=== PATIENT | female | born 1950 | race Two or more races ===

== ENCOUNTER 2016-12-09 21:44 | Emergency (ER) | payer MEDICARE ==
[2016-12-09 21:55] VITALS: BP 137/70
--- NOTE | 2016-12-14 20:56 | UC ---
Cardiac HPI - HPI Summary HPI Summary: 66 YEAR OLD PRESENTS WITH COMPLAINS OF SEVERE FATIGUE, CHEST PAIN, NAUSEA, AND HEADACHE. - History of Current Complaint Chief Complaint: UCHeadache Stated Complaint: PAIN AT THE BASE OF HER SKULL Pain Intensity: 3 - Allergy/Home Medications Allergies/Adverse Reactions: Allergies Allergy/AdvReac Type Severity Reaction Status Date / Time No Known Allergies Allergy Verified 12/09/16 21:55 PMH/Surg Hx/FS Hx/Imm Hx Previously Healthy: Yes - Surgical History Surgical History: Yes Surgery Procedure, Year, and Place: craniotomy - Social History Alcohol Use: None Substance Use Type: None Smoking Status (MU): Never Smoked Tobacco Review of Systems Constitutional: Fatigue Skin: Negative Eyes: Negative ENT: Negative Respiratory: Negative Cardiovascular: Negative Gastrointestinal: Negative Genitourinary: Negative Motor: Negative Neurovascular: Negative Musculoskeletal: Negative Neurological: Headache, Weakness Psychological: Negative All Other Systems Reviewed And Are Negative: Yes Physical Exam Triage Information Reviewed: Yes Vital Signs: Initial Vital Signs Temp 36.3 C 12/09/16 21:50 Pulse 58 12/09/16 21:50 Resp 16 12/09/16 21:50 BP 137/70 12/09/16 21:50 Pulse Ox 100 12/09/16 21:50 Eye Exam: Normal ENT Exam: Normal Dental Exam: Normal Neck exam: Normal Neck: Positive: 1 Respiratory Exam: Normal Cardiovascular: Positive: Bradycardia Abdominal Exam: Normal Musculoskeletal Exam: Normal Neurological Exam: Normal Psychological Exam: Normal Skin Exam: Normal - Clinical Impression Provider Diagnoses: CHEST PAIN. BRADYCARDIA. NAUSEA Discharge - Discharge Plan Condition: Guarded Disposition: AGAINST MEDICAL ADVICE Referrals: Mario Garcia MD [Primary Care Provider] -
== END 2016-12-09 21:58 | disposition left against medical advice (07) ==
LOC: UCEAST 21:44
DX: R07.89 Other chest pain (principal); R00.1 Bradycardia, unspecified; R11.0 Nausea; R53.83 Other fatigue
CPT/HCPCS: 99202; G0463

== ENCOUNTER 2016-12-09 22:13 | Emergency (ER) | payer MEDICARE ==
[2016-12-09 22:58] LABS: Hematocrit 39 % (35-47); Hemoglobin 12.8 g/dl (12.0-16.0); Mean Corpuscular HGB Conc 33 g/dl (31-36); Mean Corpuscular Hemoglobin 30 pg (27-31); Mean Corpuscular Volume 92 fL (80-97); Mean Platelet Volume 8 um3 (7.4-10.4); Red Cell Distribution Width 14 % (10.5-15)
[2016-12-09 23:13] LABS: BUN/Creatinine Ratio 16.2 (8-20); EGFR African American 111.3 (>60); EGFR Non-African American 86.6 (>60); Potassium 3.7 mmol/L (3.5-5.0)
--- NOTE | 2016-12-09 23:31 | ED ---
Rayo Pham Alok, scribed for Portillo Cortez MD on 12/09/16 at 2245 . Neurological HPI - HPI Summary HPI Summary: 66F presents to the ED with and an occipital sharp OGDEN earlier while laying down as well as cyanosis and coldness of the hands earlier today. Pt states that her OGDEN lasted about an hour at a 3/10 in severity and subsided on its own spontaneously. Pt also notes right sided facial swelling below her right eye currently with drainage of her right eye earlier. Pt also notes vision black outs on and off one week ago. Pt denies OGDEN currently. PMHx includes h/o stroke on 06/20/16 in [facility]. Pt takes 4 mg Coumadin QD. - History of Current Complaint Chief Complaint: EDNeurologicalDeficit Stated Complaint: NECK PAIN Time Seen by Provider: 12/09/16 22:33 Hx Obtained From: Patient, Family/Motor Vehicle Salesperson Onset/Duration: Still Present Timing: Intermittent Episodes Lasting: Onset Severity: Moderate Current Severity: Moderate Headache Location: Occipital (Right), Occipital (Left) Pain Intensity: 0 Pain Scale Used: 0-10 Numeric Character: Sharp Episode Lasting: Hours Aggravating: Nothing Alleviating: Spontanious Resolution Associated Signs and Symptoms: Positive: Visual Changes, Headache Related Hx: Coumadin - Allergy/Home Medications Allergies/Adverse Reactions: Allergies Allergy/AdvReac Type Severity Reaction Status Date / Time No Known Allergies Allergy Verified 12/09/16 21:55 Home Medications: Home Medications Atorvastatin* [Lipitor*] 40 mg PO 2100 12/09/16 [History Confirmed 12/09/16] Magnesium Oxide 400 mg PO DAILY 12/09/16 [History Confirmed 12/09/16] Metoprolol Succinate [Toprol Xl] 50 mg PO DAILY 12/09/16 [History Confirmed ] Potassium Chlor TAB* [Klor Con ER TAB*] 20 meq PO DAILY 12/09/16 [History Confirmed 12/09/16] Warfarin Sodium [Coumadin] 4 mg PO DAILY 12/09/16 [History Confirmed 12/09/16] metFORMIN* [Glucophage 500 MG TAB *] 500 mg PO 0800,1700 12/09/16 [History Confirmed 12/09/16] PMH/Surg Hx/FS Hx/Imm Hx Endocrine/Hematology History: Denies: Hx Diabetes, Hx Thyroid Disease Cardiovascular History: Reports: Hx Hypertension Respiratory History: Denies: Hx Asthma, Hx Chronic Obstructive Pulmonary Disease (COPD) GI History: Denies: Hx Ulcer Neurological History: Reports: Hx CVA - Surgical History Surgery Procedure, Year, and Place: craniotomy Infectious Disease History: No Infectious Disease History: Denies: Hx Clostridium Difficile, Hx Hepatitis, Hx Human Immunodeficiency Virus (HIV), Hx of Known/Suspected MRSA, Hx Shingles, Hx Tuberculosis, Hx Known/ Suspected VRE, Hx Known/Suspected VRSA, History Other Infectious Disease, Traveled Outside the [place] in Last 30 Days - Family History Known Family History: Negative: Diabetes - Social History Occupation: Retired Lives: With Family Alcohol Use: None Substance Use Type: Reports: None Smoking Status (MU): Never Smoked Tobacco Review of Systems Positive: Chills, Other - cyanosis. Negative: Fever Positive: Drainage, Other - vision black outs Positive: Other - facial swelling right side Positive: Headache All Other Systems Reviewed And Are Negative: Yes Physical Exam Triage Information Reviewed: Yes Vital Signs On Initial Exam: Initial Vitals Temp Pulse Resp BP Pulse Ox 98.1 F 63 16 118/74 97 12/09/16 22:18 12/09/16 22:18 12/09/16 22:18 12/09/16 22:18 12/09/16 22:18 Vital Signs Reviewed: Yes Appearance: Positive: Well-Appearing, No Pain Distress Skin: Positive: Warm Head/Face: Positive: Normal Head/Face Inspection Eyes: Positive: EOMI, KRISTIAN ENT: Positive: Hearing grossly normal Neck: Positive: Supple Respiratory/Lung Sounds: Positive: Clear to Auscultation, Breath Sounds Present Cardiovascular: Positive: RRR Abdomen Description: Positive: Nontender, Soft Bowel Sounds: Positive: Present Musculoskeletal: Positive: Strength/ROM Intact Neurological: Positive: Sensory/Motor Intact, Normal Gait Psychiatric: Positive: Affect/Mood Appropriate - [place] Coma Scale Best Eye Response: 4 - Spontaneous Best Motor Response: 6 - Obeys Commands Best Verbal Response: 5 - Oriented Diagnostics - Vital Signs Vital Signs Temp Pulse Resp BP Pulse Ox 12/09/16 22:31 63 20 97 12/09/16 22:30 134/70 12/09/16 22:18 98.1 F 63 16 118/74 97 - Laboratory Lab Results: Lab Results 12/09/16 12/09/16 12/09/16 Range/Units 22:50 22:50 22:50 WBC 9.0 (3.5-10.8) 10^3/ul RBC 4.20 (4.0-5.4) 10^6/ul Hgb 12.8 (12.0-16.0) g/dl Hct 39 (35-47) % MCV 92 (80-97) fL MCH 30 (27-31) pg MCHC 33 (31-36) g/dl RDW 14 (10.5-15) % Plt Count 241 (150-450) 10^3/ul MPV 8 (7.4-10.4) um3 Neut % (Auto) 62.4 (38-83) % Lymph % (Auto) 28.6 (25-47) % [place] % (Auto) 6.6 (1-9) % Eos % (Auto) 1.8 (0-6) % Baso % (Auto) 0.6 (0-2) % Absolute Neuts (auto) 5.6 (1.5-7.7) 10^3/ul Absolute Lymphs (auto) 2.6 (1.0-4.8) 10^3/ul Absolute Monos (auto) 0.6 (0-0.8) 10^3/ul Absolute Eos (auto) 0.2 (0-0.6) 10^3/ul Absolute Basos (auto) 0.1 (0-0.2) 10^3/ul Absolute Nucleated RBC 0.01 10^3/ul Nucleated RBC % 0.1 INR (Anticoag Therapy) 1.47 H (0.89-1.11) Sodium 138 (133-145) mmol/L Potassium 3.7 (3.5-5.0) mmol/L Chloride 105 (101-111) mmol/L Carbon Dioxide 26 (22-32) mmol/L Anion Gap 7 (2-11) mmol/L BUN 11 (6-24) mg/dL Creatinine 0.68 (0.51-0.95) mg/dL Est GFR ( Amer) 111.3 (>60) Est GFR (Non-Af Amer) 86.6 (>60) BUN/Creatinine Ratio 16.2 (8-20) Glucose 97 (70-100) mg/dL Calcium 9.0 (8.6-10.3) mg/dL Result Diagrams: 12/09/16 22:50 12/09/16 22:50 Lab Statement: Any lab studies that have been ordered have been reviewed, and results considered in the medical decision making process. - CT Brain CT CT Interpretation: Positive (See Comments) - IMPRESSION: No evidence of acute pathology CT Interpretation Completed By: Radiologist Maxillofacial CT CT Interpretation: Positive (See Comments) - IMPRESSION: Possible mild right ethmoid sinusitis. No fracture. CT Interpretation Completed By: Radiologist Re-Evaluation - Re-Evaluation First Eval Re-Evaluation Time: 23:59 Change: Improved Comment: Discussed pt CT results Course/Dx - Diagnoses Provider Diagnoses: Headache Discharge - Discharge Plan Condition: Stable Disposition: HOME Patient Education Materials: Sinusitis (ED), General Headache (ED) Print Language: ARGENTINE Referrals: Mario Garcia MD [Primary Care Provider] - Additional Instructions: Please follow up with your primary care physician. The documentation as recorded by the Rayo avila Alok accurately reflects the service I personally performed and the decisions made by , Portillo Cortez MD.
[2016-12-10 00:08] VITALS: BP 96/62
--- NOTE | 2016-12-10 07:55 | RAD ---
INDICATION: Headache. COMPARISON: There are no prior studies available for comparison. TECHNIQUE: Contiguous axial sections of the brain were obtained from the skull base to the vertex without contrast. FINDINGS: The patient is status post right parietal occipital craniotomy and suboccipital craniectomy. There is a focal area of encephalomalacia present involving the right posterior parietal, occipital lobes and a portion of the right cerebellar hemisphere. There is ex vacuo dilatation of the posterior horn of the right lateral ventricle. There is also mild diffuse atrophy. No significant focal abnormality or mass effect is seen. There is no evidence for hemorrhage. There is dolichoectasia of the basilar artery. The visualized portion of the paranasal sinuses and mastoid air cells appear clear. IMPRESSION: 1. NO EVIDENCE FOR ACUTE FINDING. 2. EXTENSIVE ENCEPHALOMALACIA DESCRIBED WHICH MAY REPRESENT POSTOPERATIVE CHANGES AND/OR OLD INFARCT.
--- NOTE | 2016-12-10 07:56 | RAD ---
Indication: Facial swelling. CT of the facial bones was obtained the axial plane. Sagittal and coronal reconstructed images were obtained. The frontal sinuses are clear. Ethmoid air cells maxillary sinuses sphenoid sinuses are clear. No evidence of fracture is noted. No evidence of abnormal fluid collections are noted in the subcutaneous tissue. There may be some minimal ethmoid sinusitis involving the right posterior ethmoid air cells. The mandible demonstrates no fracture. The visualized cervical spine is otherwise unremarkable. IMPRESSION: No fracture is identified. Ethmoid sinusitis right posterior ethmoid air cells.
== END 2016-12-10 00:12 | disposition home or self-care (01) ==
LOC: ED 22:13
DX: R51 Headache (principal); R68.83 Chills (without fever)
CPT/HCPCS: 36415; 70450; 70486; 80048; 85025; 85610; 99283

== ENCOUNTER 2017-02-11 11:58 | Day surgery (SDC) | payer MEDICARE ==
[~2017-02-11 11:58] MED LIST: Acetaminophen TAB* 325 MG PO PRN; Buffered Lidocaine 0.9% SYRIN* 5 ML/SYR SYRINGE INTRADERM ONE
[2017-02-11] MEDS ORDERED: Tropicamide 1% OPTH.SOL* BTL ONE (13:13)
[2017-02-11] MEDS ORDERED: Ketorolac 0.5% OPHTH (NF) 0.5 % 5 ML BTL ONE (13:13)
[2017-02-11] MEDS ORDERED: Lidocaine 1% MPF* 2 ML VIAL ONE (13:13)
[2017-02-11] MEDS ORDERED: Phenylephrine 2.5% OPTH.SOL* 2 ML BTL ONE (13:13)
[2017-02-11] MEDS ORDERED: Buffered Lidocaine 0.9% SYRIN* 5 ML/SYR SYRINGE ONE (13:13)
[2017-02-11] MEDS ORDERED: Cyclopentolate 1% OPTH.SOL* 2 ML BTL ONE (13:13)
[2017-02-11] MEDS ORDERED: Tetracaine 0.5% OPTH.SOL 4 ML* 1 DROP BTL ONE (13:13)
[2017-02-11] MEDS ORDERED: Neomycin/Polymy/Dex OPHTH.OIN* 3.5 GM ONE (13:13)
[2017-02-11] MEDS ORDERED: Midazolam* 1 MG/ML 2 ML VIAL (2 MG) ONE (13:39)
[2017-02-11 14:06] VITALS: BP 128/86
--- NOTE | 2017-02-11 15:41 | OP ---
DATE OF OPERATION/DATE OF DICTATION: 02/11/2017 - [facility] DATE OF : 1950. SURGEON: Dr. Augusto Mathews. MANAGER PAPER: None. ANESTHESIOLOGIST: True Patel MD ANESTHESIA: Topical with intravenous sedation. PRE-OP DIAGNOSIS: Cataract, left eye. POST-OP DIAGNOSIS: Cataract, left eye. OPERATIVE PROCEDURE: Phacoemulsification and cataract extraction with posterior chamber intraocular lens implant, left eye. COMPLICATIONS: None. BLOOD LOSS: None. DESCRIPTION OF PROCEDURE: The patient was brought to the operating room and received a small amount of intravenous sedation. A drop of Tetracaine was placed in her left eye. She was prepped and draped in the usual sterile fashion for ophthalmic surgery and attention was directed to the left eye where a speculum was placed. A paracentesis was created at the 5 o'clock position and 0.1 cc of 1 percent preservative-free Lidocaine was injected into the anterior chamber followed by DisCoVisc. The eye was digitally stabilized while a 2.75 mm keratome was used to create a triplanar clear corneal incision at the 3 o'clock position. A continuous curvilinear capsulorrhexis was created with a cystotome and Utrata forceps. BSS on a cannula was used to hydrodissect the lens from the capsule. Phacoemulsification was performed in a divide-and- conquer technique to create four fragments which were removed. Residual cortical material was removed with irrigation and aspiration. DisCoVisc was used to inflate the capsular bag and an AUOOTO 21 diopter lens was folded and inserted into the capsular bag. DisCoVisc was removed using irrigation and aspiration. BSS on a cannula was used to hydrate the corneal stroma and seal the wound. At the end of the case the pupil was round and the lens was centered. The eye was of normal pressure and the wound was water tight. The speculum was removed and topical Maxitrol ointment was placed on the surface of the eye. The eye was closed, patched and shielded and the patient was sent to the recovery room in stable condition with post operative instructions and follow-up appointment given. [id number] #: [id number] MTDD
== END 2017-02-11 14:12 | disposition home or self-care (01) ==
LOC: OREAST 11:58
PROVIDERS: ATTEND Ophthalmology
DX: H25.12 Age-related nuclear cataract, left eye (principal); I10 Essential (primary) hypertension; I48.91 Unspecified atrial fibrillation; Z79.01 Long term (current) use of anticoagulants; E11.9 Type 2 diabetes mellitus without complications; E78.00 Pure hypercholesterolemia, unspecified; Z79.84 Long term (current) use of oral hypoglycemic drugs; I69.354 Hemiplegia and hemiparesis following cerebral infarction affecting left non-dominant side
CPT/HCPCS: A9270-GY; J2250

== ENCOUNTER 2017-02-18 09:51 | Day surgery (SDC) | payer MEDICARE ==
[2017-02-18] MEDS ORDERED: Midazolam* 1 MG/ML 5 ML VIAL (5 MG) ONE (10:48)
[2017-02-18] MEDS ORDERED: fentaNYL* 50 MCG/ML 2 ML VIAL (100 MCG VIAL) ONE (10:48)
[2017-02-18 11:48] VITALS: BP 118/60
[2017-02-18] MEDS ORDERED: Buffered Lidocaine 0.9% SYRIN* 5 ML/SYR SYRINGE ONE (14:14)
[2017-02-18] MEDS ORDERED: Tetracaine 0.5% OPTH.SOL 4 ML* 1 DROP BTL ONE (14:14)
[2017-02-18] MEDS ORDERED: Ketorolac 0.5% OPHTH (NF) 0.5 % 5 ML BTL ONE (14:14)
[2017-02-18] MEDS ORDERED: Phenylephrine 2.5% OPTH.SOL* 2 ML BTL ONE (14:14)
[2017-02-18] MEDS ORDERED: Cyclopentolate 1% OPTH.SOL* 2 ML BTL ONE (14:14)
[2017-02-18] MEDS ORDERED: Neomycin/Polymy/Dex OPHTH.OIN* 3.5 GM ONE (14:14)
[2017-02-18] MEDS ORDERED: Lidocaine 1% MPF* 2 ML VIAL ONE (14:14)
[2017-02-18] MEDS ORDERED: Tropicamide 1% OPTH.SOL* BTL ONE (14:14)
--- NOTE | 2017-02-18 23:46 | OP ---
DATE OF OPERATION: 02/18/17 [facility] DATE OF : 50 SURGEON: Dr. Augusto Matehws. WEFT STRAIGHTENER: None. ANESTHESIA: Topical with intravenous sedation. PRE-OP DIAGNOSIS: Cataract, right eye. POST-OP DIAGNOSIS: Cataract, right eye. OPERATIVE PROCEDURE: Phacoemulsification and cataract extraction with posterior chamber intraocular lens implant, right eye. COMPLICATIONS: None. BLOOD LOSS: None. DESCRIPTION OF PROCEDURE: The patient was brought to the operating room and received a small amount of intra-venous sedation. A drop of Tetracaine was placed in her right eye. She was prepped and draped in the usual sterile fashion for ophthalmic surgery and attention was directed to the right eye where a speculum was placed. A paracentesis was created at the 11 o'clock position and 0.1 cc of 1 percent preservative-free Lidocaine was injected into the anterior chamber followed by DisCoVisc. The eye was digitally stabilized while a 2.75 mm keratome was used to create a triplanar clear corneal incision at the 9 o'clock position. A continuous curvilinear capsulorrhexis was created with a cystotome and Utrata forceps. BSS on a cannula was used to hydrodissect the lens from the capsule. Phacoemulsification was performed in a divide-and- conquer technique to create four fragments which were removed. Residual cortical material was removed with irrigation and aspiration. DisCoVisc was used to inflate the capsular bag and an [id number] 21.5 diopter lens was folded and inserted into the capsular bag. DisCoVisc was removed using irrigation and aspiration. BSS on a cannula was used to hydrate the corneal stroma and seal the wound. At the end of the case the pupil was round and the lens was centered. The eye was of normal pressure and the wound was water tight. The speculum was removed and topical Maxitrol ointment was placed on the surface of the eye. The eye was closed, patched and shielded and the patient was sent to the recovery room in stable condition with post operative instructions and follow-up appointment given. [id number] #: [id number] LOREN
== END 2017-02-18 11:20 | disposition home or self-care (01) ==
LOC: OREAST 09:51
PROVIDERS: ATTEND Ophthalmology
DX: H25.11 Age-related nuclear cataract, right eye (principal); E11.9 Type 2 diabetes mellitus without complications; Z79.84 Long term (current) use of oral hypoglycemic drugs; Z86.73 Personal history of transient ischemic attack (TIA), and cerebral infarction without residual deficits; Z79.01 Long term (current) use of anticoagulants; Z79.899 Other long term (current) drug therapy
CPT/HCPCS: A9270-GY; J2250; J3010; V2632

== ENCOUNTER 2017-03-23 09:04 | Inpatient (IN) | payer MEDICARE ==
--- NOTE | 2017-03-23 10:07 | RAD ---
INDICATION: Syncope. Craniotomy. COMPARISON: December 09, 2016 TECHNIQUE: Noncontrast axial source images were acquired from the skull base to the vertex. FINDINGS: Ventricles/sulci: The ventricles and cisterns are unchanged with compensatory dilatation of the atria of the right lateral ventricle. Brain parenchyma: There is no acute focal parenchymal finding, evidence of intracranial mass, or intracranial mass effect. There is encephalomalacia in the posterior parietal, occipital, and right temporal region, unchanged Intracranial hemorrhage:None. Extra-axial spaces: There are no abnormal extra axial fluid collections or evidence of extra-axial mass. Calvarium: Right suboccipital craniotomy defect, unchanged. Scalp: There is no evidence of scalp or extracalvarial soft tissue abnormality. Paranasal sinuses/mastoid: The paranasal sinuses and mastoid air cells are clear. Other: None. IMPRESSION: Postsurgical changes as described with encephalomalacia. No acute findings..
[2017-03-23 10:57] LABS: Hematocrit 45 % (35-47); Mean Corpuscular HGB Conc 33 g/dl (31-36); Mean Corpuscular Hemoglobin 31 pg (27-31); Mean Corpuscular Volume 93 fL (80-97); Mean Platelet Volume 8 um3 (7.4-10.4); Red Blood Count 4.89 10^6/ul (4.0-5.4); Red Cell Distribution Width 13 % (10.5-15); White Blood Count 12.5 10^3/ul (3.5-10.8)
[2017-03-23 11:12] LABS: Albumin 3.9 g/dL (3.2-5.2); BUN/Creatinine Ratio 16.2 (8-20); Calcium 9.3 mg/dL (8.6-10.3); EGFR Non-African American 78.5 (>60); Globulin 2.7 g/dL (2-4); Magnesium 1.8 mg/dL (1.9-2.7); Potassium 4.2 mmol/L (3.5-5.0); Total Bilirubin 0.6 mg/dL (0.2-1.0); Total Protein 6.6 g/dL (6.4-8.9); Troponin I 0.03 ng/mL (<0.04)
[2017-03-23] MEDS ORDERED: Dextrose 50% Syringe 50 ML* 25 GM/50 ML SYRINGE IV PUSH PRN (11:52)
[2017-03-23] MEDS ORDERED: Ondansetron INJ* 2 MG/ML VIAL IV PRN (12:03)
[2017-03-23] MEDS ORDERED: Acetaminophen TAB* 325 MG PO PRN (12:03)
[2017-03-23 12:09] LABS: TSH (Thyroid Stimulating Horm) 1.91 mcIU/mL (0.34-5.60)
[2017-03-23] MEDS: Insulin LISPRO* 1 UNITS UNIT SUBCUT SCH ×2 (12:30→17:31)
[2017-03-23] MEDS: Metoprolol Succinate XL TAB* 50 MG PO SCH (12:30)
[2017-03-23] MEDS: levETIRAcetam TAB* 500 MG PO SCH ×2 (13:03→21:58)
--- NOTE | 2017-03-23 16:25 | ED ---
Ish Pham SooYoung, scribed for Bo Wen MD on 03/23/17 at 0929 . Syncope/Near Syncope - HPI Summary HPI Summary: A 66 y/o F presents to ED by car after syncopal episode onset CHEMICAL WEIGHER that lasted approx 60-90 seconds. Per family, pt c/o possible abd pain and vomiting; pt had a syncopal episode; she did not fall but became weak, unresponsive and leaned against a wall. Family is unsure if vomiting was before or after syncopal episode. Pert PMHx: stroke, June 2016, lasting cognitive and mobility impairments. Associated sx: L-side "seized up", L sided facial droop, confused. Denies OGDEN. Pt states being drowsy at bedside. Daily Coumadin, HTN. - History Of Current Complaint Chief Complaint: EDSyncope Hx Obtained From: Patient, Family/Candlemaker Onset/Duration: Sudden Onset, Resolved Timing: Seconds - syncope lasting 60-90 secs Context: Witnessed Associated Head Trauma: No Associated Signs And Symptoms: Vomiting, Weakness, Other - abd pain; L-side "seized up"; L-sided facial droop; confusion - Allergies/Home Medications Allergies/Adverse Reactions: Allergies Allergy/AdvReac Type Severity Reaction Status Date / Time No Known Allergies Allergy Verified 03/23/17 09:32 PMH/Surg Hx/FS Hx/Imm Hx Previously Healthy: No Endocrine/Hematology History: Reports: Hx Diabetes - type 2 Denies: Hx Thyroid Disease Cardiovascular History: Reports: Hx Hypertension - on meds, Other Cardiovascular Problems/Disorders - a fib, on coumadin Respiratory History: Denies: Hx Asthma, Hx Chronic Obstructive Pulmonary Disease (COPD), Other Respiratory Problems/Disorders GI History: Denies: Hx Ulcer, Other GI Disorders Musculoskeletal History: Reports: Hx Arthritis - in hands and knees Denies: Other Musculoskeletal History Sensory History: Reports: Hx Cataracts - adin, Hx Contacts or Glasses - glasses Denies: Hx Hearing Aid Opthamlomology History: Reports: Hx Cataracts - adin, Hx Contacts or Glasses - glasses Neurological History: Reports: Hx CVA, Other Neuro Impairments/Disorders - walks with walker - Surgical History Surgery Procedure, Year, and Place: craniotomy, 06/21/16, [facility]. [place] 2 [place], 2005. gallbladder, 1984. c section , 1985. lazer to knee 2015. 2016, vericose vein right knee, [place] Hx Anesthesia Reactions: No Infectious Disease History: No Infectious Disease History: Denies: Hx Clostridium Difficile, Hx Hepatitis, Hx Human Immunodeficiency Virus (HIV), Hx of Known/Suspected MRSA, Hx Shingles, Hx Tuberculosis, Hx Known/ Suspected VRE, Hx Known/Suspected VRSA, History Other Infectious Disease, Traveled Outside the [place] in Last 30 Days - Family History Known Family History: Negative: Diabetes - Social History Occupation: Retired Lives: With Family Alcohol Use: None Hx Substance Use: No Substance Use Type: Reports: None Hx Tobacco Use: No Smoking Status (MU): Never Smoked Tobacco Review of Systems Positive: Abdominal Pain, Vomiting Positive: Other - L-side "seized up" Neurological: Other - L-sided facial droop; confusion Positive: Weakness, Syncope - 60-90 secs, unresponsive. Negative: Headache All Other Systems Reviewed And Are Negative: Yes Physical Exam - Summary Physical Exam Summary: The patient is well-nourished in no acute distress and in no acute pain. The skin is warm and dry and skin color reflects adequate perfusion. HEENT: The head is normocephalic and atraumatic. The pupils are equal and reactive. The conjunctivae are clear and without drainage. Nares are patent and without drainage. Mouth reveals moist mucous membranes and the throat is without erythema and exudate. The external ears are intact. The ear canals are patent and without drainage. The tympanic membranes are intact. Neck is supple with full range of motion and non-tender. There are no carotid bruits. There is no neck vein distension. Respiratory: Chest is non-tender. Lungs are clear to auscultation and breath sounds are symmetrical and equal. Cardiovascular: Hear is regular rate and rhythm. There is no murmur or rub auscultated. There is no peripheral edema and pulses are symmetrical and equal. Abdomen: The abdomen is soft and non-tender. There are normal bowel sounds heard in all four quadrants and there is no organomegaly palpated. Musculoskeletal: There is no back pain noted. Extremities are non-tender with full range of motion. There is good capillary refill. There is no peripheral edema or calf tenderness elicited. Neurological: Patient is alert and oriented to person, place and time. The patient has symmetrical motor strength in all four extremities. Cranial nerves are grossly intact. Deep tendon reflexes are symmetrical and equal in all four extremities. Psychiatric: The patient has an appropriate affect and does not exhibit any anxiety or depression. Triage Information Reviewed: Yes Vital Signs On Initial Exam: Initial Vitals Temp Pulse Resp BP Pulse Ox 97.0 F 124 16 116/69 99 03/23/17 09:06 03/23/17 09:06 03/23/17 09:06 03/23/17 09:06 03/23/17 09:06 Vital Signs Reviewed: Yes - Og Coma Scale Coma Scale Total: 15 Diagnostics - Vital Signs Vital Signs Temp Pulse Resp BP Pulse Ox 03/23/17 09:06 97.0 F 124 16 116/69 99 - Laboratory Lab Results: Lab Results 03/23/17 03/23/17 03/23/17 Range/Units 10:42 10:42 10:42 WBC 12.5 H (3.5-10.8) 10^3/ul RBC 4.89 (4.0-5.4) 10^6/ul Hgb 15.0 (12.0-16.0) g/dl Hct 45 (35-47) % MCV 93 (80-97) fL MCH 31 (27-31) pg MCHC 33 (31-36) g/dl RDW 13 (10.5-15) % Plt Count 300 (150-450) 10^3/ul MPV 8 (7.4-10.4) um3 Neut % (Auto) 79.6 (38-83) % Lymph % (Auto) 12.9 L (25-47) % [place] % (Auto) 6.8 (1-9) % Eos % (Auto) 0.2 (0-6) % Baso % (Auto) 0.5 (0-2) % Absolute Neuts (auto) 10.0 H (1.5-7.7) 10^3/ul Absolute Lymphs (auto) 1.6 (1.0-4.8) 10^3/ul Absolute Monos (auto) 0.8 (0-0.8) 10^3/ul Absolute Eos (auto) 0 (0-0.6) 10^3/ul Absolute Basos (auto) 0.1 (0-0.2) 10^3/ul Absolute Nucleated RBC 0 10^3/ul Nucleated RBC % 0 INR (Anticoag Therapy) (0.89-1.11) Sodium 134 (133-145) mmol/L Potassium 4.2 (3.5-5.0) mmol/L Chloride 98 L (101-111) mmol/L Carbon Dioxide 30 (22-32) mmol/L Anion Gap 6 (2-11) mmol/L BUN 12 (6-24) mg/dL Creatinine 0.74 (0.51-0.95) mg/dL Est GFR ( Amer) 101.0 (>60) Est GFR (Non-Af Amer) 78.5 (>60) BUN/Creatinine Ratio 16.2 (8-20) Glucose 123 H (70-100) mg/dL Lactic Acid 1.0 (0.5-2.0) mmol/L Calcium 9.3 (8.6-10.3) mg/dL Magnesium 1.8 L (1.9-2.7) mg/dL Total Bilirubin 0.60 (0.2-1.0) mg/dL AST 23 (13-39) U/L ALT 27 (7-52) U/L Alkaline Phosphatase 66 (34-104) U/L Troponin I 0.03 (<0.04) ng/mL Total Protein 6.6 (6.4-8.9) g/dL Albumin 3.9 (3.2-5.2) g/dL Globulin 2.7 (2-4) g/dL Albumin/Globulin Ratio 1.4 (1-3) TSH 1.91 (0.34-5.60) mcIU/mL 03/23/17 Range/Units 10:42 WBC (3.5-10.8) 10^3/ul RBC (4.0-5.4) 10^6/ul Hgb (12.0-16.0) g/dl Hct (35-47) % MCV (80-97) fL MCH (27-31) pg MCHC (31-36) g/dl RDW (10.5-15) % Plt Count (150-450) 10^3/ul MPV (7.4-10.4) um3 Neut % (Auto) (38-83) % Lymph % (Auto) (25-47) % [place] % (Auto) (1-9) % Eos % (Auto) (0-6) % Baso % (Auto) (0-2) % Absolute Neuts (auto) (1.5-7.7) 10^3/ul Absolute Lymphs (auto) (1.0-4.8) 10^3/ul Absolute Monos (auto) (0-0.8) 10^3/ul Absolute Eos (auto) (0-0.6) 10^3/ul Absolute Basos (auto) (0-0.2) 10^3/ul Absolute Nucleated RBC 10^3/ul Nucleated RBC % INR (Anticoag Therapy) 2.48 H (0.89-1.11) Sodium (133-145) mmol/L Potassium (3.5-5.0) mmol/L Chloride (101-111) mmol/L Carbon Dioxide (22-32) mmol/L Anion Gap (2-11) mmol/L BUN (6-24) mg/dL Creatinine (0.51-0.95) mg/dL Est GFR ( Amer) (>60) Est GFR (Non-Af Amer) (>60) BUN/Creatinine Ratio (8-20) Glucose (70-100) mg/dL Lactic Acid (0.5-2.0) mmol/L Calcium (8.6-10.3) mg/dL Magnesium (1.9-2.7) mg/dL Total Bilirubin (0.2-1.0) mg/dL AST (13-39) U/L ALT (7-52) U/L Alkaline Phosphatase (34-104) U/L Troponin I (<0.04) ng/mL Total Protein (6.4-8.9) g/dL Albumin (3.2-5.2) g/dL Globulin (2-4) g/dL Albumin/Globulin Ratio (1-3) TSH (0.34-5.60) mcIU/mL Result Diagrams: 03/23/17 10:42 03/23/17 10:42 Lab Statement: Any lab studies that have been ordered have been reviewed, and results considered in the medical decision making process. - CT BRAIN CT CT Interpretation: No Acute Changes - IMPRESSION: Postsurgical changes as described with encephalomalacia. No acute findings. ED physician has reviewed this radiology report and agrees. CT Interpretation Completed By: Radiologist - EKG 0919 EKG Rhythm: Atrial Fibrillation - at 103 bpm EKG Interpretation: LVH, LAD National Institutes Of Health - NIH Scale Level of Consciousness: Alert/Keenly Responsive Ask Patient the Month and His/Her Age: Both Correct Ask Pt to Open/Close Eyes and Chemistry Lecturer/Release Non-Paretic Hand: Both Correctly Best Gaze (Only Horizontal Eye Movement): Normal Visual Field Testing: No Visual Loss Facial Paresis-Pt to Smile & Close Eyes or Grimace Symmetry: Normal/Symmetrical Motor Function - Right Arm: No Drift-Holds 10 Seconds Motor Function - Left Arm: No Drift-Holds 10 Seconds Motor Function - Right Leg: No Drift-Holds 10 Seconds Motor Function - Left Leg: No Drift-Holds 10 Seconds Limb Ataxia-Must be out of Proportion to Weakness Present: Absent Sensory (Use Pinprick to Test Arms/Legs/Trunk/Face): Normal Best Language (Describe Picture, Name Items): No Aphasia Dysarthria (Read Several Words): Normal Extinction and Inattention: No Abnormality Total Score: 0 Course/Dx Course Of Treatment: Ms. Madhav Tavarez had an episode today of LOC and seizure activity on the left side of her body. It is unclear whether she was syncopal with convulsions or actually had a seizure. She was nauseated prior to the episode and she may have been vagal. I have asked the hospitalist to see her for further W/U. - Diagnoses Provider Diagnoses: Syncope and collapse - Physician Notifications Discussed Care of Patient With: Mora Mendoza - hospitalist Time Discussed With Above Provider: 11:34 Instructed by Provider To: Admit As Inpatient Discharge - Discharge Plan Condition: Stable Disposition: ADMITTED TO [facility] documentation as recorded by the Ish avila SooYoung accurately reflects the service I personally performed and the decisions made by me, Bo Wen MD.
[2017-03-23] MEDS ORDERED: Warfarin TAB(*) 4 MG PO SCH (17:00)
[2017-03-23] MEDS: Warfarin TAB(*) 6 MG PO SCH (17:31)
[2017-03-23] MEDS: Magnesium Oxide TAB* 400 MG PO SCH (17:32)
[2017-03-23] MEDS ORDERED: NS 0.9% 1000 ML* 1,000 ML IV SCH (19:00)
--- NOTE | 2017-03-23 20:53 | HP ---
ATTENDING PHYSICIAN ADDENDUM NOW INCLUDED ON THIS REPORT CC: Dr. Garcia, [facility] * HISTORY AND PHYSICAL: DATE OF ADMISSION: 03/23/17 ATTENDING PHYSICIAN: Mora Mendoza MD *(dictated by John Padilla NP). PRIMARY CARE PROVIDER: Dr. Garcia, [facility]. CONSULTING PHYSICIAN: Dong Richards MD, Neurology. CHIEF COMPLAINT: Altered mental status. HISTORY OF PRESENT ILLNESS: Ms. Madhav Tavarez is a 66-year-old female who presented to the ER today following an apparent syncopal event at home. Per the family, the patient was found leaning against the wall at home and was complaining of stomach pain. Apparently, the patient stated that she felt like she was going to throw up, and at that point the patient's granddaughter notes that her left side appeared to seize up and the patient "lost facial expression. " The patient was noted to have vomited and had minimal responsiveness. They were able to lower her to a sitting position and the patient was noted to have left arm convulsions and shaking, which went on for approximately 60 to 90 seconds. The patient was eventually able to drink some water and 911 was activated. Following the event, the family was concerned that the patient was more lethargic and decided to leave and transport the patient themselves to the hospital for further evaluation as EMS services had not yet arrived. Here in the ER, the patient has returned to her baseline. Of note, the patient did have a stroke this year in June while she was living in [place]. Following that CVA, the patient was noted to have some mild cognitive issues as well as left-sided weakness, which family states has greatly improved. They state she is currently back to her baseline and still participates in therapies , but no other acute issues. Please note that the patient is primarily Ethiopian speaking, but does understand some Korean, her daughter helps to translate. Mr. Madhav Tavarez currently denies any headache, dizziness, or weakness. She denies any recent cold or flu-like symptoms, any chest pain, troubled breathing. She denies any visual changes, swallowing difficulties. She denies any abdominal pain, nausea, vomiting, or diarrhea. She denies any weight gain or weight loss. She denies any dysuria. She said that she was feeling her normal state of health. She currently feels like she is at her baseline and has no current complaints. Here in the ER, the patient had CT of the brain, which showed no acute focal parenchymal finding, evidence of intracranial mass or intracranial mass effect. The patient does have encephalomalacia in the posterior parietal, occipital and right temporal regions that is unchanged from 12/09/16. PAST MEDICAL HISTORY: Includes: 1. CVA on 06/20/16, with residual left-sided weakness. The patient was treated at a hospital in [place]. 2. Atrial fibrillation. 3. Type 2 diabetes. 4. Hypertension. 5. History of cataracts. 6. Hypercholesterolemia. 7. Osteoarthritis. PAST SURGICAL HISTORY: Includes: 1. Appendectomy. 2. Total hysterectomy. 3. Bilateral knee replacements. HOME MEDICATIONS: 1. Metoprolol succinate 50 mg q.a.m. 2. Magnesium oxide 400 mg q.p.m. 3. Atorvastatin 40 mg q.p.m. 4. Metformin 500 mg at 0800 and 1700. 5. Warfarin 6 mg on Friday, Friday, Friday, Friday, Friday and Friday, and 8 mg on . 6. Potassium chloride 20 mEq daily. ALLERGIES: No known drug allergies. FAMILY HISTORY: The patient has a history of heart disease on the mother's side as well as lung cancer in her mother. SOCIAL HISTORY: The patient denies alcohol, tobacco, or drug use. She lives with her family. Her daughter, Maris Caputo, is her surrogate decision maker and healthcare proxy. REVIEW OF SYSTEMS: As per HPI, a 14-point review of systems was attempted. All pertinent positives and negatives are included in the HPI. PHYSICAL EXAMINATION GENERAL: This is an older female who is lying in the ED stretcher in no acute distress. She is very pleasant and cooperative. VITAL SIGNS: Temperature 97, heart rate 110, respiratory rate 20, blood pressure 111/80, and O2 saturation is 97% on room air. HEENT: Head is atraumatic, normocephalic. Face is symmetrical. Pupils are equal, round, and reactive to light. Extraocular movements are intact. Oral mucosa appears moist. There is no oropharyngeal exudate or erythema. NECK: Supple. The patient has full range of motion. No carotid bruits appreciated. No JVD noted. No lymphadenopathy appreciated. LUNGS: Clear to auscultation bilaterally. CARDIAC: S1 and S2 heart sounds. Irregular rate and rhythm. No murmurs, rubs , or gallops noted. The patient has no peripheral edema. Distal pulses are 2+ and symmetric and equal. ABDOMEN: Soft, nontender, and nondistended. Bowel sounds are normoactive. MUSCULOSKELETAL: The patient is able to move all extremities. NEURO: She is oriented to person, place, time, and situation. The patient has 5 /5 strength in upper and lower extremities and is symmetrical in both upper and lower extremities. Cranial nerves II through XII are grossly intact. There was negative pronator drift in the upper and lower extremities. The patient was able to follow commands. She is able to pull herself to a sitting position and push herself up off the ED stretcher. Gait is slow, but steady. PSYCH: Affect is appropriate. LABORATORY DATA AND DIAGNOSTIC STUDIES: CBC: WBC 12.5, hemoglobin 15, hematocrit 45, platelet count 300,000. INR was 2.48. CMP: Sodium 134, potassium 4.2, chloride 98, carbon dioxide 30, BUN 12, creatinine 0.74, glucose 123, lactic acid 1.0, calcium 9.3, magnesium 1.8. Total bilirubin 0.6, AST 23, ALT 27, alk phos 66. Troponin 0.03, albumin 3.9, TSH 1.91. CT brain as previously mentioned. ASSESSMENT AND PLAN: Ms. Madhav Tavarez is a 66-year-old female who presents today with altered mental status that appears to be secondary to either a convulsive syncopal event versus seizure disorder in the presence of previous cerebrovascular accident. She will be admitted under OBV status to the telemetry floor. Plan is as follows: 1. Altered mental status with suspected seizure activities. I have reviewed the case with Dr. Richards via phone. With the patient's recent stroke history, it appears likely that she had a seizure event, especially since it involved the left side, which was the side that was affected by her previous cerebrovascular accident. He recommended starting the patient on Keppra 500 mg b.i.d. and obtaining a followup neurology appointment as an outpatient. We will continue with neuro checks here and check an EEG tomorrow. If the patient remains stable overnight, she could be discharged on her Keppra and could follow up with Dr. Richards as an outpatient. If there are any further issues, the patient could be seen by Dr. Richards here in the hospital. We will also check urinalysis, which has not yet been collected, as well as follow up on labs. The patient did not seem to have any other signs of infection and is currently at her neurological baseline per the family. We will monitor on telemetry. We will also check a lipid profile and A1c. I do not feel MRI of the brain or any other testing for acute transient ischemic attack or cerebrovascular accident workup is warranted at this time. 2. History of atrial fibrillation. The patient is currently in atrial fibrillation, it is mostly rate controlled, although she is occasionally reaching up into the 120s. She has not yet taken her medications today. We will continue her on her home metoprolol, magnesium oxide and potassium chloride. She is also anticoagulated with warfarin, which we will also continue. Her INR is currently therapeutic at 2.48. 3. History of hypertension, controlled. Continue home metoprolol succinate. 4. Type 2 diabetes, appears to be well controlled per the family given that the patient is being admitted to the hospital. We will hold her metformin and maintain her on lispro sliding scale insulin in the event that we need to utilize contrast medium. 5. Hypercholesterolemia. Continue atorvastatin. 6. FEN: The patient is ordered consistent carbohydrate diet. 7. DVT prophylaxis: The patient is on warfarin. She is also ordered SCDs. 8. Code status: She is a full code. 9. Disposition: Anticipate the patient can be discharged to home with family. TIME SPENT: Time spent on this admission was approximately 60 minutes, greater than half the time was spent [id number] with the patient and family obtaining history and physical, performing physical examination and reviewing the plan of care. Plan of care was also reviewed with my attending, Dr. Mendoza, who is in agreement. JOHN PADILLA NP ADDENDUM: Ms. Madhav Tavarez is a 66-year-old female with a history of recent ischemic stroke, is currently on Coumadin for atrial fibrillation and presents after a syncopal episode with convulsions. At this point, it is possible that the patient had a new onset seizure. The patient is going to be placed on overnight observation. We will check EEG and request neurology consult. For further details of the patient's presentation and plan, please see history and physical dictated by John Padilla on 03/23/17 with which I agree. MORA MENDOZA MD [id number]/[facility]PS #: [id number]/CPS #: [id number] LOREN
--- NOTE | 2017-03-23 21:02 | HP ---
HISTORY AND PHYSICAL: ADDENDUM: Ms. Madhav Tavarez is a 66-year-old female with a history of recent ischemic stroke, is currently on Coumadin for atrial fibrillation and presents after a syncopal episode with convulsions. At this point, it is possible that the patient had a new onset seizure. The patient is going to be placed on overnight observation. We will check EEG and request neurology consult. For further details of the patient's presentation and plan, please see history and physical dictated by Stephanie Hatch on 03/23/17 with which I agree. [id number]/[facility] #: [id number] MTDD
[2017-03-23] MEDS: Atorvastatin* 40 MG TAB PO SCH (21:57)
[2017-03-24 05:52] LABS: Urine Bacteria 1+ (Absent); Urine Bilirubin Negative (Negative); Urine Glucose Negative (Negative); Urine Nitrite Negative (Negative)
[2017-03-24] MEDS: Insulin LISPRO* 1 UNITS UNIT SUBCUT SCH ×3 (07:56→17:41)
[2017-03-24 08:24] LABS: Hematocrit 36 % (35-47); Hemoglobin 12.2 g/dl (12.0-16.0); Mean Corpuscular HGB Conc 34 g/dl (31-36); Mean Corpuscular Hemoglobin 31 pg (27-31); Mean Corpuscular Volume 92 fL (80-97); Mean Platelet Volume 8 um3 (7.4-10.4); Red Blood Count 3.98 10^6/ul (4.0-5.4); Red Cell Distribution Width 14 % (10.5-15); White Blood Count 8.1 10^3/ul (3.5-10.8)
[2017-03-24 08:36] LABS: Calcium 8.4 mg/dL (8.6-10.3); EGFR African American 145.3 (>60); HDL Cholesterol 37.7 mg/dL; Potassium 3.5 mmol/L (3.5-5.0)
[2017-03-24 09:16] LABS: BUN/Creatinine Ratio 18.5 (8-20)
[2017-03-24] MEDS: Metoprolol Succinate XL TAB* 50 MG PO SCH (10:01)
[2017-03-24] MEDS: Potassium Chlor TAB* 20 MEQ TAB.ER PO SCH (10:01)
[2017-03-24] MEDS: levETIRAcetam TAB* 500 MG PO SCH (10:01)
--- NOTE | 2017-03-24 16:38 | PN ---
Subjective Date of Service: 03/24/17 Interval History: Patient is somewhat sedated today and having episodes of giggling while being examined. Patient also has difficulty following directions, though the degree to which this is attributable to a language barrier is unknown as the patient speaks limited chinese. Patient denies any complaints via a processing mgr including dizziness, N/V and pain. Patient also had staring spells per the family lasting several seconds and up to 60 seconds yesterday. EEG low quality study and not easily interpretable. Family History: Unchanged from Admission Social History: Unchanged from Admission Past Medical History: Unchanged from Admission Objective Active Medications: Acetaminophen (Tylenol Tab*) 650 mg PO Q4H PRN PRN Reason: FEVER/PAIN Atorvastatin Calcium (Lipitor*) 40 mg PO 2100 [facility] Last Admin: 03/23/17 21:57 Dose: 40 mg Dextrose (D50w Syringe 50 Ml*) 12.5 gm IV PUSH .FOR FS < 60 - SS PRN PRN Reason: FS < 60 Valproic Acid 500 mg/ Sodium (Chloride) 105 mls @ 210 mls/hr IVPB Q8H [facility] Insulin Human Lispro (Humalog*) 0 units SUBCUT AC [facility] PRN Reason: Protocol Last Admin: 03/24/17 13:06 Dose: 2 units Magnesium Oxide (Magox 400 Tab*) 400 mg PO QPM [facility] Last Admin: 03/23/17 17:32 Dose: 400 mg Metoprolol Succinate (Toprol Xl Tab*) 50 mg PO QAM [facility] Last Admin: 03/24/17 10:01 Dose: 50 mg Ondansetron HCl (Zofran Inj*) 4 mg IV Q6H PRN PRN Reason: NAUSEA/VOMITING Potassium Chloride (Klor Con Er Tab*) 20 meq PO DAILY [facility] Last Admin: 03/24/17 10:01 Dose: 20 meq Warfarin Sodium (Coumadin Tab(*)) 8 mg PO Th@1700 [facility] Warfarin Sodium (Coumadin Tab(*)) 6 mg PO SuMoTuWeFrSa@1700 [facility] Last Admin: 03/23/17 17:31 Dose: 6 mg Vital Signs 03/23/17 03/23/17 03/23/17 18:34 19:12 20:00 Temperature 97.8 F Pulse Rate 68 63 Respiratory 16 20 Rate Blood Pressure 99/55 112/68 (mmHg) O2 Sat by Pulse 98 Oximetry 03/23/17 03/24/17 03/24/17 23:43 03:33 07:27 Temperature 97.1 F 97.3 F 98.2 F Pulse Rate 62 59 62 Respiratory 20 20 18 Rate Blood Pressure 90/54 97/56 99/60 (mmHg) O2 Sat by Pulse 98 97 98 Oximetry 03/24/17 03/24/17 03/24/17 08:00 10:51 11:06 Temperature 98.3 F Pulse Rate 65 94 Respiratory 18 16 Rate Blood Pressure 98/53 104/68 (mmHg) O2 Sat by Pulse 96 Oximetry Oxygen Devices in Use Now: None Appearance: Patient is a 66yo female who appears stated age and is sitting in the bed visibly elated with frequent giggling spells. Eyes: No Scleral Icterus, PERRLA Ears/Nose/Mouth/Throat: NL Teeth, Lips, Gums, Clear Oropharnyx, Mucous Membranes Moist Neck: NL Appearance and Movements; NL JVP, Trachea Midline Respiratory: Symmetrical Chest Expansion and Respiratory Effort, Clear to Auscultation Cardiovascular: NL Sounds; No Murmurs; No JVD, No Edema, - - Irregularly irregular rhythm Abdominal: NL Sounds; No Tenderness; No Distention Lymphatic: No Cervical Adenopathy Extremities: No Edema Skin: No Rash or Ulcers, No Nodules or Sclerosis Neurological: Alert and Oriented x 3, NL Sensation, NL Gait, - - Neuro exam normal including reflexes 2+ througout and downgoing babinski's B/L except for weakness of dorsiflexion in left foot. Exam limited by language barrier. Result Diagrams: 03/24/17 08:00 03/24/17 08:00 Additional Lab and Data: Lab Results 03/23/17 03/23/17 03/23/17 Range/Units 10:42 10:42 10:42 WBC 12.5 H (3.5-10.8) 10^3/ul RBC 4.89 (4.0-5.4) 10^6/ul Hgb 15.0 (12.0-16.0) g/dl Hct 45 (35-47) % MCV 93 (80-97) fL MCH 31 (27-31) pg MCHC 33 (31-36) g/dl RDW 13 (10.5-15) % Plt Count 300 (150-450) 10^3/ul MPV 8 (7.4-10.4) um3 Neut % (Auto) 79.6 (38-83) % Lymph % (Auto) 12.9 L (25-47) % [place] % (Auto) 6.8 (1-9) % Eos % (Auto) 0.2 (0-6) % Baso % (Auto) 0.5 (0-2) % Absolute Neuts (auto) 10.0 H (1.5-7.7) 10^3/ul Absolute Lymphs (auto) 1.6 (1.0-4.8) 10^3/ul Absolute Monos (auto) 0.8 (0-0.8) 10^3/ul Absolute Eos (auto) 0 (0-0.6) 10^3/ul Absolute Basos (auto) 0.1 (0-0.2) 10^3/ul Absolute Nucleated RBC 0 10^3/ul Nucleated RBC % 0 INR (Anticoag Therapy) (0.89-1.11) Sodium 134 (133-145) mmol/L Potassium 4.2 (3.5-5.0) mmol/L Chloride 98 L (101-111) mmol/L Carbon Dioxide 30 (22-32) mmol/L Anion Gap 6 (2-11) mmol/L BUN 12 (6-24) mg/dL Creatinine 0.74 (0.51-0.95) mg/dL Est GFR ( Amer) 101.0 (>60) Est GFR (Non-Af Amer) 78.5 (>60) BUN/Creatinine Ratio 16.2 (8-20) Glucose 123 H (70-100) mg/dL Lactic Acid 1.0 (0.5-2.0) mmol/L Calcium 9.3 (8.6-10.3) mg/dL Magnesium 1.8 L (1.9-2.7) mg/dL Total Bilirubin 0.60 (0.2-1.0) mg/dL AST 23 (13-39) U/L ALT 27 (7-52) U/L Alkaline Phosphatase 66 (34-104) U/L Troponin I 0.03 (<0.04) ng/mL Total Protein 6.6 (6.4-8.9) g/dL Albumin 3.9 (3.2-5.2) g/dL Globulin 2.7 (2-4) g/dL Albumin/Globulin Ratio 1.4 (1-3) TSH 1.91 (0.34-5.60) mcIU/mL 03/23/17 Range/Units 10:42 WBC (3.5-10.8) 10^3/ul RBC (4.0-5.4) 10^6/ul Hgb (12.0-16.0) g/dl Hct (35-47) % MCV (80-97) fL MCH (27-31) pg MCHC (31-36) g/dl RDW (10.5-15) % Plt Count (150-450) 10^3/ul MPV (7.4-10.4) um3 Neut % (Auto) (38-83) % Lymph % (Auto) (25-47) % [place] % (Auto) (1-9) % Eos % (Auto) (0-6) % Baso % (Auto) (0-2) % Absolute Neuts (auto) (1.5-7.7) 10^3/ul Absolute Lymphs (auto) (1.0-4.8) 10^3/ul Absolute Monos (auto) (0-0.8) 10^3/ul Absolute Eos (auto) (0-0.6) 10^3/ul Absolute Basos (auto) (0-0.2) 10^3/ul Absolute Nucleated RBC 10^3/ul Nucleated RBC % INR (Anticoag Therapy) 2.48 H (0.89-1.11) Sodium (133-145) mmol/L Potassium (3.5-5.0) mmol/L Chloride (101-111) mmol/L Carbon Dioxide (22-32) mmol/L Anion Gap (2-11) mmol/L BUN (6-24) mg/dL Creatinine (0.51-0.95) mg/dL Est GFR ( Amer) (>60) Est GFR (Non-Af Amer) (>60) BUN/Creatinine Ratio (8-20) Glucose (70-100) mg/dL Lactic Acid (0.5-2.0) mmol/L Calcium (8.6-10.3) mg/dL Magnesium (1.9-2.7) mg/dL Total Bilirubin (0.2-1.0) mg/dL AST (13-39) U/L ALT (7-52) U/L Alkaline Phosphatase (34-104) U/L Troponin I (<0.04) ng/mL Total Protein (6.4-8.9) g/dL Albumin (3.2-5.2) g/dL Globulin (2-4) g/dL Albumin/Globulin Ratio (1-3) TSH (0.34-5.60) mcIU/mL Assess/Plan/Problems-Billing Assessment: Patient is a 66yo female with a PMH significant for CVA from 06/2016, Afib, DMII , HTN, and HLD who presented with syncope with epileptic activity. EEG was interpretable and patient was believed to be having a poor reaction to Keppra and will be switched to Depakote and have an EEG repeated in the morning. - Patient Problems (1) Seizure Current Visit: Yes Status: Acute Code(s): R56.9 - UNSPECIFIED CONVULSIONS SNOMED Code(s): 40504985 Comment: Appreciate neurology input. Patient had syncope with activity consistent with seizure and post-ictal state and has been having staring spells consistent with ongoing complex partial seizures. EEG not conclusive Keppra not well tolerated by patient, switched to Depakote IV. Probably secondary compliction to CVA. (2) History of CVA (cerebrovascular accident) Current Visit: Yes Status: Acute Code(s): Z86.73 - PRSNL HX OF TIA (TIA), AND CEREB INFRC W/O RESID DEFICITS SNOMED Code(s): 997304544 Comment: On maximal secondary prevention. INR therapeutic, continue warfarin. BP low normal and LDL excellent. Not deemed indicated to get MRI of brain at this time. (3) Atrial fibrillation Current Visit: Yes Status: Acute Code(s): I48.91 - UNSPECIFIED ATRIAL FIBRILLATION SNOMED Code(s): 01714580 Comment: Rate controlled, on coumadin. INR therapeutic (4) HTN (hypertension) Current Visit: Yes Status: Acute Code(s): I10 - ESSENTIAL (PRIMARY) HYPERTENSION SNOMED Code(s): 57085936 Comment: Low end of Normotensive. Continue metoprolol for rate control. Will monitor. (5) HLD (hyperlipidemia) Current Visit: Yes Status: Acute Code(s): E78.5 - HYPERLIPIDEMIA, UNSPECIFIED SNOMED Code(s): 84398641 Comment: Resolved, Lipid panel excellent. (6) DMII (diabetes mellitus, type 2) Current Visit: Yes Status: Acute Comment: Slightly hyperglycemic, SSI insulin ACHS. Will monitor. (7) Full code status Current Visit: Yes Status: Acute Code(s): Z78.9 - OTHER SPECIFIED HEALTH STATUS SNOMED Code(s): 325579322 (8) DVT prophylaxis Current Visit: Yes Status: Acute Code(s): WAW4845 - SNOMED Code(s): 657827650 Comment: Therapeutic on Warfarin Status and Disposition: Patient is admitted inpatient. Hopeful for discharge tomorrow.
[2017-03-24] MEDS ORDERED: NS 0.9% 100 ML* 100 ML ONE (17:35)
[2017-03-24] MEDS: Valproic Acid IV(*) 500 MG in NS 0.9% 100 ML* 100 ML IVPB SCH (17:41)
[2017-03-24] MEDS: Warfarin TAB(*) 6 MG PO SCH (17:57)
[2017-03-24] MEDS: Magnesium Oxide TAB* 400 MG PO SCH (18:02)
[2017-03-24] MEDS: Atorvastatin* 40 MG TAB PO SCH (20:01)
--- NOTE | 2017-03-24 21:40 | CONS ---
NEUROLOGY CONSULTATION: DATE OF CONSULT: 03/24/17 REFERRING PROVIDER: MARI Eduardo LOCATION: She is an inpatient in room 442. CHIEF COMPLAINT: Episode of diminished responsiveness and left-sided shaking. HISTORY OF PRESENT ILLNESS: Alicia Tavarez is a 66-year-old right- handed woman, who was admitted yesterday after an episode of diminished responsiveness accompanied by left-sided shaking. The history is from the chart , but also from the patient and her daughter, who is present at the time and helps interpret. Ms. Madhav Tavarez understands and speaks some Polish as well. She was in her usual state of health yesterday afternoon when she seemed not to respond to her relatives. Her daughter went to her and she exhibited flexion, stiffening of the left arm, and stopped speaking. She had shaking and jerking of the left arm and she was eased to the ground. That went on for a minute or two and after that she was unresponsive. She gradually started to respond, but was confused and not making sense. She was brought into the emergency room where it was felt that she has probably recovered to her baseline. She had a CT scan of the brain, which revealed an old right parietal and occipital infarction. She has a history of a stroke with left hemiparesis in June 2016 and has been on Coumadin for atrial fibrillation. It was presumed she probably had a seizure and was started on Keppra last evening. She has never had a seizure before. Normally, after recovering from her stroke, she will have some mild weakness of her left arm, but she is ambulatory and otherwise pretty functional. PAST MEDICAL HISTORY: Notable for hypertension, chronic atrial fibrillation, cerebrovascular event described above, type 2 diabetes, hyperlipidemia. PAST SURGICAL HISTORY: She has had bilateral knee replacements and a hysterectomy. MEDICATIONS: At home, consists of: 1. Atorvastatin 40 mg p.o. q. day. 2. Metoprolol 50 mg p.o. q.a.m. 3. Metformin 500 mg p.o. b.i.d. 4. Warfarin 6 mg per day. 5. Potassium chloride 20 mEq q. day. Current medications consist of the same outpatient medicines as well as: 1. Sliding scale insulin. 2. Ondansetron 4 mg IV q.6 hours as needed for vomiting. 3. Keppra 500 mg p.o. b.i.d. ALLERGIES: She does not have any drug allergies. FAMILY HISTORY: Noncontributory. REVIEW OF SYSTEMS: Negative for recent falls or infections or change in weight. She is generally pretty cognitively intact. Ever since last night at about 1 o'clock, she has been having brief staring spells and acting very restless and agitated. She was laughing for no apparent reason multiple times through the engineering psychologist and early afternoon and that seems to have settled down. Other than probable seizure, she has not had any recent falls. She denies headaches or change in vision through her daughter. PHYSICAL EXAM: She is well-nourished and well-hydrated. Temperature 98.3 orally, blood pressure 104/68, heart rate generally in the 60s and irregular. Respirations 16 and oxygen saturation is 96% on room air. Head is atraumatic. Oral mucosa is moist and atraumatic. There are no cervical bruits. She is very restless, constantly pulling at the sheets and the blankets and pulling them over her head. However, she immediately responds when spoken to and seems to respond appropriately. Pupils react equally from 4 to 3 mm. Eye movements are full. She has a left hemianopsia to visual threat. Facial musculature appears symmetric. Speech seems clear in Romansh. Motor exam reveals a mild spastic catch in the left leg. There are no involuntary movements. She has a good resistive strength in all limbs. I have not attempted to ambulate her. She had 1 brief episode where she stared straight ahead for about 5 seconds. I said hello to her and she sluggishly replied and then seemed fine. DIAGNOSTIC STUDIES/LAB DATA: Includes CT of the brain described above with old right hemisphere infarctions. Laboratory data notable for an INR of 2.48 yesterday and 2.39 today. Chemistry profile notable for a sodium of 130, her glucose is running between about 100 to 160. Cholesterol 92, LDL 38. CBC is unremarkable. IMPRESSION: That of a probable secondarily generalized seizure from her old scar from her stroke. She may still be having complex partial seizures. She had an EEG, which I reviewed and there is excessive artifact. There appears at times to be some right central parietal sharpened spikes, but with so much artifacts, it is inconclusive. RECOMMENDATIONS: I would recommend that we switch her from Keppra to Depakote. This is not clear if the Keppra is contributing to her behavioral restlessness or it is just the seizures. We will start Depakote 500 mg IV every 8 hours and repeat her EEG tomorrow. Discussed my impression with her daughter and son-in- law including reviewing potential side effects of Keppra including weight gain, sedation, tremor, and rare liver and bone marrow toxicities. I also discussed my impression with MARI Eduardo. [id number]/[facility] #: [id number] MTDD
[2017-03-25] MEDS ORDERED: LORazepam INJ* 2 MG/ML 1 ML VIAL IV PUSH ONE (00:35)
[2017-03-25] MEDS ORDERED: LORazepam INJ* 2 MG/ML 1 ML VIAL ONE (00:44)
[2017-03-25] MEDS: Valproic Acid IV(*) 500 MG in NS 0.9% 100 ML* 100 ML IVPB SCH ×2 (01:15→10:17)
--- NOTE | 2017-03-25 04:14 | EEG ---
ELECTROENCEPHALOGRAM REPORT: DATE OF STUDY: 03/24/17 REFERRING PHYSICIAN: Stephanie Hatch NP. LOCATION: She is an inpatient in room 442. CLINICAL HISTORY: History of prior stroke with left-sided weakness. The patient had an episode of unresponsiveness and jerking of the left side and then vomiting. Back in the emergency room the patient was apparently at her baseline. MEDICATIONS: Include: 1. Atorvastatin. 2. Warfarin. 3. Insulin. 4. Metoprolol. 5. Keppra. EEG DESCRIPTION: This 16-channel EEG is remarkable for background rhythms which are obscured by muscle and movement artifact for the majority of the tracing. There appears to be mainly a low-voltage fast rhythm predominantly. The patient talks and laughs and moves throughout much of the recording. There may be sharp and spike followed by slow-wave discharges in the right central parietal area, as they are fairly persistent finding even during the relatively quieter periods of the recording. Activation procedures were not attempted. There was no evidence of sleep stages. INTERPRETATION: Technically limited EEG due to excessive muscle and movement artifact through the majority of the tracing. There were quieter portions with spikes and sharp waves with following slow waves noted near the right central parietal area, but due to the artifactual contaminants it is hard to be certain if these truly represent epileptiform discharges. A repeat tracing when the patient is calmer may be helpful. [id number]/[facility] #: [id number] LOREN
[2017-03-25 06:16] LABS: Hematocrit 40 % (35-47); Hemoglobin 12.9 g/dl (12.0-16.0); Mean Corpuscular HGB Conc 33 g/dl (31-36); Mean Corpuscular Hemoglobin 30 pg (27-31); Mean Corpuscular Volume 91 fL (80-97); Mean Platelet Volume 8 um3 (7.4-10.4); Red Blood Count 4.33 10^6/ul (4.0-5.4); Red Cell Distribution Width 13 % (10.5-15); White Blood Count 9.8 10^3/ul (3.5-10.8)
[2017-03-25 06:31] LABS: EGFR African American 126.2 (>60); EGFR Non-African American 98.1 (>60); Magnesium 1.8 mg/dL (1.9-2.7); Potassium 3.6 mmol/L (3.5-5.0)
[2017-03-25] MEDS ORDERED: Magnesium Sulfate 2 GM IV* 2 GM/50 ML BAG IVPB ONE (07:07)
[2017-03-25] MEDS ORDERED: LORazepam INJ* 2 MG/ML 1 ML VIAL IV PUSH PRN (08:09)
[2017-03-25] MEDS: Insulin LISPRO* 1 UNITS UNIT SUBCUT SCH ×3 (09:11→17:10)
[2017-03-25] MEDS: Potassium Chlor TAB* 20 MEQ TAB.ER PO SCH (09:28)
[2017-03-25] MEDS: Metoprolol Succinate XL TAB* 50 MG PO SCH (09:28)
[2017-03-25] MEDS: cefTRIAXone VIAL(*) 1,000 MG in NS 0.9% 50 ML* 50 ML IVPB SCH (13:24)
--- NOTE | 2017-03-25 14:57 | PN ---
Subjective Date of Service: 03/25/17 Interval History: Patient has been agitated overnight with frequent staring spells, delusions, possible hallucinations and giggling fits. Patient unable to provide a history of the events which are given by the nursing staff and the daughter. EEG shows continued epileptiform activity consistent with area of previous stroke. No signs motor abnormalities consistent with seizures. Family History: Unchanged from Admission Social History: Unchanged from Admission Past Medical History: Unchanged from Admission Objective Active Medications: Acetaminophen (Tylenol Tab*) 650 mg PO Q4H PRN PRN Reason: FEVER/PAIN Atorvastatin Calcium (Lipitor*) 40 mg PO 2100 [facility] Last Admin: 03/24/17 20:01 Dose: 40 mg Dextrose (D50w Syringe 50 Ml*) 12.5 gm IV PUSH .FOR FS < 60 - SS PRN PRN Reason: FS < 60 Ceftriaxone Sodium 1,000 mg/ (Sodium Chloride) 50 mls @ 200 mls/hr IVPB Q24H [facility] Last Admin: 03/25/17 13:24 Dose: 200 mls/hr Valproic Acid 750 mg/ Sodium (Chloride) 107.5 mls @ 210 mls/hr IVPB Q8H [facility] Insulin Human Lispro (Humalog*) 0 units SUBCUT AC [facility] PRN Reason: Protocol Last Admin: 03/25/17 13:28 Dose: 2 units Lorazepam (Ativan Inj*) 0.5 mg IV PUSH Q4H PRN PRN Reason: ANXIETY Last Admin: 03/25/17 10:16 Dose: 0.5 mg Magnesium Oxide (Magox 400 Tab*) 400 mg PO QPM [facility] Last Admin: 03/24/17 18:02 Dose: 400 mg Metoprolol Succinate (Toprol Xl Tab*) 50 mg PO QAM [facility] Last Admin: 03/25/17 09:28 Dose: 50 mg Ondansetron HCl (Zofran Inj*) 4 mg IV Q6H PRN PRN Reason: NAUSEA/VOMITING Potassium Chloride (Klor Con Er Tab*) 20 meq PO DAILY [facility] Last Admin: 03/25/17 09:28 Dose: 20 meq Warfarin Sodium (Coumadin Tab(*)) 8 mg PO Th@1700 [facility] Warfarin Sodium (Coumadin Tab(*)) 6 mg PO SuMoTuWeFrSa@1700 [facility] Last Admin: 03/24/17 17:57 Dose: 6 mg Vital Signs 03/24/17 03/24/17 03/24/17 15:37 19:12 20:00 Temperature 98.5 F 98.1 F Pulse Rate 69 76 Respiratory 24 20 16 Rate Blood Pressure 115/61 123/70 (mmHg) O2 Sat by Pulse 98 100 Oximetry 03/24/17 03/25/17 03/25/17 23:18 01:12 03:17 Temperature 98.6 F 98.2 F Pulse Rate 66 61 Respiratory 18 18 18 Rate Blood Pressure 128/60 98/63 (mmHg) O2 Sat by Pulse 97 96 Oximetry 03/25/17 03/25/17 03/25/17 04:41 07:50 08:20 Temperature 97.3 F Pulse Rate 76 Respiratory 16 16 18 Rate Blood Pressure 138/84 (mmHg) O2 Sat by Pulse 95 Oximetry 03/25/17 03/25/17 03/25/17 10:16 11:11 13:32 Temperature Pulse Rate 65 Respiratory 18 16 18 Rate Blood Pressure 103/59 (mmHg) O2 Sat by Pulse 98 Oximetry Oxygen Devices in Use Now: None Appearance: Patient is a 66yo female who appears stated age lying on her daughter crying and moving listlessly. Eyes: No Scleral Icterus, PERRLA Ears/Nose/Mouth/Throat: NL Teeth, Lips, Gums, Clear Oropharnyx, Mucous Membranes Moist Neck: NL Appearance and Movements; NL JVP, Trachea Midline Respiratory: Symmetrical Chest Expansion and Respiratory Effort, Clear to Auscultation Cardiovascular: NL Sounds; No Murmurs; No JVD, No Edema, - - Irregularly irregular rhythm Abdominal: NL Sounds; No Tenderness; No Distention, No Hepatosplenomegaly Lymphatic: No Cervical Adenopathy Extremities: No Edema, No Clubbing, Cyanosis Skin: No Rash or Ulcers, No Nodules or Sclerosis Neurological: Alert and Oriented x 3, NL Sensation, NL Gait, - - Normal neuro exam including reflexes and babninskis except for 4/5 strength in Left upper and lower extremities. Result Diagrams: 03/25/17 05:34 03/25/17 05:34 Additional Lab and Data: Lab Results Microbiology and Other Data: Microbiology 03/24/17 04:25 Urine Urine Culture - Preliminary Escherichia Coli Assess/Plan/Problems-Billing Assessment: Patient is a 66yo female with a PMH significant for CVA from 06/2016, Afib, DMII , HTN, and HLD who presented with syncope with epileptic activity. Continues to have staring spells and epileptic activity on EEG. - Patient Problems (1) Seizure Current Visit: Yes Status: Acute Code(s): R56.9 - UNSPECIFIED CONVULSIONS SNOMED Code(s): 04661766 Comment: Appreciate neurology input. Patient had syncope with activity consistent with seizure and post-ictal state and has been having staring spells consistent with ongoing complex partial seizures. EEG shows epileptic discharges from area consistent with stroke. Keppra not well tolerated by patient, switched to Depakote IV. Increased to 750mg Q8H Will check level in morning. Probably secondary complication to CVA. (2) History of CVA (cerebrovascular accident) Current Visit: Yes Status: Acute Code(s): Z86.73 - PRSNL HX OF TIA (TIA), AND CEREB INFRC W/O RESID DEFICITS SNOMED Code(s): 381073091 Comment: On maximal secondary prevention. INR therapeutic, continue warfarin. BP low normal and LDL excellent. Will get MRI of brain to assess for repeat infarction. (3) Atrial fibrillation Current Visit: Yes Status: Acute Code(s): I48.91 - UNSPECIFIED ATRIAL FIBRILLATION SNOMED Code(s): 80287785 Comment: Rate controlled, on coumadin. INR therapeutic (4) HTN (hypertension) Current Visit: Yes Status: Acute Code(s): I10 - ESSENTIAL (PRIMARY) HYPERTENSION SNOMED Code(s): 13804741 Comment: Low end of Normotensive. Continue metoprolol for rate control. Will monitor. (5) HLD (hyperlipidemia) Current Visit: Yes Status: Acute Code(s): E78.5 - HYPERLIPIDEMIA, UNSPECIFIED SNOMED Code(s): 83985070 Comment: Resolved, Lipid panel excellent. (6) DMII (diabetes mellitus, type 2) Current Visit: Yes Status: Acute Comment: Slightly hyperglycemic, SSI insulin ACHS. Will monitor. (7) Full code status Current Visit: Yes Status: Acute Code(s): Z78.9 - OTHER SPECIFIED HEALTH STATUS SNOMED Code(s): 720970613 (8) DVT prophylaxis Current Visit: Yes Status: Acute Code(s): PUA7878 - SNOMED Code(s): 870422669 Comment: Therapeutic on Warfarin Status and Disposition: Patient is admitted inpatient. Will assess for discharge when seizure activity controlled.
--- NOTE | 2017-03-25 16:20 | RAD ---
Indication: Diminished responsiveness and LEFT-sided shaking. Intermittent confusion, forgetfulness, unsteady gait. Previous CVA with LEFT-sided deficits. Previous craniotomy. Comparison: March 23, 2017 CT. Technique: Best Response Strategiesa 1.5 Arlen [id number] with GEM suite. MRI brain without contrast. Report: Susceptibility series is negative for stigmata of hemosiderin deposition to indicate previous hemorrhage. Signal voids at the RIGHT cerebellar hemisphere and occipital lobe corresponding with chronic hemosiderin deposition in the region of severe encephalomalacia related to previous insult with extensive since encephalomalacia. Associated ex vacuo dilatation of the atria and occipital horn of the RIGHT lateral ventricle. Diffusion series is negative for acute or subacute ischemia. Negative for sulcal effacement or midline shift. Patent basal cisterns. Small burden of small T2 FLAIR hyperintensities within the periventricular and subcortical white matter of the cerebral hemispheres most consistent with chronic small vessel ischemic disease. Negative for extra-axial fluid collections. Preserved major intracranial flow-voids. Tortuous basilar artery. Unremarkable orbital contents. Previous RIGHT occipital parietal craniotomy. No suspicious focal osseous lesions. Grossly clear paranasal sinuses and mastoid air spaces. No suspicious scalp lesions. IMPRESSION: 1. Large region of encephalomalacia likely related to a previous CVA involving the RIGHT occipital lobe and cerebellum. 2. Negative for stigmata of acute or subacute ischemia. Negative for mass effect. 3. Stigmata of chronic small vessel ischemic disease.
[2017-03-25] MEDS: Valproic Acid IV(*) 750 MG in NS 0.9% 100 ML* 100 ML IVPB SCH ×2 (17:01→21:57)
[2017-03-25] MEDS: Warfarin TAB(*) 6 MG PO SCH (17:03)
[2017-03-25] MEDS: Magnesium Oxide TAB* 400 MG PO SCH (17:03)
[2017-03-25] MEDS: Atorvastatin* 40 MG TAB PO SCH (20:11)
--- NOTE | 2017-03-25 20:39 | CONS ---
NEUROLOGY FOLLOWUP/CONSULTATION: DATE OF FOLLOWUP: 03/25/17 LOCATION: She is an inpatient in room 449. HOSPITALIST: MARI Eduardo CHIEF COMPLAINT: Seizures. INTERVAL HISTORY: Since yesterday, Ms. Madhav Tavarez is still having brief staring spells but not as much as yesterday according to her daughter, who is present in the room this afternoon. She is now on Depakote 500 mg IV q.8 hours. She was able to walk with assistance, but is unsteady according to her daughter. She gets a little agitated at night according to her nurse and she is always pleasant but she wants to get up and get out of the bed. She has received occasional doses of lorazepam including one today. MEDICATIONS: Medications are reviewed and she is currently on: 1. Valproic acid 500 mg IV q.8 hours. 2. Warfarin 6 mg p.o. q. day. 3. Metoprolol 50 mg p.o. q.a.m. 4. Lorazepam 0.5 mg IV q.4 hours as needed for anxiety. 5. Sliding scale insulin. 6. Atorvastatin 40 mg p.o. q. day. PHYSICAL EXAM: She is afebrile with last temperature 97.3 by temporal scan, blood pressure 103/59, heart rate in the 60s and regular. Neurologically, she is awake and alert. She is a little bit sleepy, but stays awake throughout the visit. She speaks mainly in Bahamian, but also in Tajik. There are no lapses in attention and concentration while I am in the room with her. There is no tremor in the hands. She has normal strength in the upper extremities without drift. Eye movements are full without nystagmus. DIAGNOSTIC STUDIES/LAB DATA: Includes an EEG earlier today, which reveals phase - reversing spikes as well as sharp waves from the right central parietal area. They are fairly frequent through the recording. Other laboratory data from today includes a chemistry profile notable for sodium of 132, which is up from 130 yesterday and otherwise unremarkable chemistry profile. Magnesium is a little bit low at 1.8. CBC is within normal limits today with a white blood cell count of 9.8 from admission of 12.5. Urinalysis from 03/24/17 grew E. coli. IMPRESSION AND PLAN: Impression is that of ongoing complex partial seizures. They seem to be emanating from her prior stroke but given the difficulty controlling them, I would like to get an MRI to rule out additional lesion. Recommended increasing her Depakote to 750 mg q.8 hours and checking a trough level tomorrow. I have discussed this with the patient and her daughter. [id number]/[facility] #: [id number] MTDD
--- NOTE | 2017-03-26 04:33 | EEG ---
ELECTROENCEPHALOGRAPHY: DATE OF STUDY: 03/25/17 REFERRING PROVIDER: MARI Eduardo * LOCATION: She is an inpatient in room 449. CLINICAL HISTORY: History of seizures and prior stroke. MEDICATIONS: Include Depakote, lorazepam p.r.n., warfarin, atorvastatin. EEG DESCRIPTION: This 16-channel EEG is remarkable for background rhythms consisting of fairly abundant low to moderate voltage beta rhythms. Bitemporal and central low voltage delta and theta activity is also noted. There is no clear posterior alpha rhythm. Frequently throughout the tracing phase, reversing spikes and some sharp waves are noted emanating from the right central parietal area. Phase reversals are mainly about the C4 electrode. Movement artifact is fairly abundant, but there are adequate quiet portions of the tracing for assessment. Sleep stages are not recognized. INTERPRETATION: Abnormal EEG due to epileptiform discharges from the right central parietal area which are fairly frequent throughout the tracing. This tracing is compatible with a focal seizure disorder emanating from the right central parietal region. [id number]/[facility] #: [id number] [facility]
[2017-03-26] MEDS: Valproic Acid IV(*) 750 MG in NS 0.9% 100 ML* 100 ML IVPB SCH (06:04)
[2017-03-26] MEDS: Metoprolol Succinate XL TAB* 50 MG PO SCH ×2 (06:39→08:56)
[2017-03-26 07:01] LABS: Albumin 3.7 g/dL (3.2-5.2); BUN/Creatinine Ratio 15.1 (8-20); EGFR African American 102.6 (>60); EGFR Non-African American 79.8 (>60); Globulin 2.5 g/dL (2-4); Potassium 4.2 mmol/L (3.5-5.0); Total Bilirubin 0.4 mg/dL (0.2-1.0); Total Protein 6.2 g/dL (6.4-8.9)
[2017-03-26] MEDS: Insulin LISPRO* 1 UNITS UNIT SUBCUT SCH ×3 (07:32→17:29)
[2017-03-26] MEDS: Potassium Chlor TAB* 20 MEQ TAB.ER PO SCH (08:56)
[2017-03-26] MEDS: cefTRIAXone VIAL(*) 1,000 MG in NS 0.9% 50 ML* 50 ML IVPB SCH (12:50)
--- NOTE | 2017-03-26 15:43 | PN ---
Subjective Date of Service: 03/26/17 Interval History: Patient much improved with regards to agitation and staring spells. Has had only a few today which last several seconds and then have a couple minutes of confusion before returning to baseline. No more giggling spells. Patient has no other complaints. MRI of brain showed no new lesions. Patient has been switching between Afib and NSR throughout the day with rates going to the 130s when in afib and active. Rates around 90 at rest. Asymptomatic. Family History: Unchanged from Admission Social History: Unchanged from Admission Past Medical History: Unchanged from Admission Objective Active Medications: Acetaminophen (Tylenol Tab*) 650 mg PO Q4H PRN PRN Reason: FEVER/PAIN Atorvastatin Calcium (Lipitor*) 40 mg PO 2100 [facility] Last Admin: 03/25/17 20:11 Dose: 40 mg Cefuroxime Axetil (Ceftin Tab(*)) 250 mg PO BID [facility] Dextrose (D50w Syringe 50 Ml*) 12.5 gm IV PUSH .FOR FS < 60 - SS PRN PRN Reason: FS < 60 Valproic Acid 500 mg/ Sodium (Chloride) 105 mls @ 210 mls/hr IVPB Q8H [facility] Insulin Human Lispro (Humalog*) 0 units SUBCUT AC [facility] PRN Reason: Protocol Last Admin: 03/26/17 12:50 Dose: 2 units Lorazepam (Ativan Inj*) 0.5 mg IV PUSH Q4H PRN PRN Reason: ANXIETY Last Admin: 03/25/17 10:16 Dose: 0.5 mg Magnesium Oxide (Magox 400 Tab*) 400 mg PO QPM [facility] Last Admin: 03/25/17 17:03 Dose: 400 mg Metoprolol Succinate (Toprol Xl Tab*) 50 mg PO QAM [facility] Last Admin: 03/26/17 08:56 Dose: Not Given Ondansetron HCl (Zofran Inj*) 4 mg IV Q6H PRN PRN Reason: NAUSEA/VOMITING Potassium Chloride (Klor Con Er Tab*) 20 meq PO DAILY [facility] Last Admin: 03/26/17 08:56 Dose: 20 meq Vital Signs 03/25/17 03/25/17 03/26/17 19:59 20:00 00:17 Temperature 97.9 F 97.9 F Pulse Rate 58 66 Respiratory 14 16 20 Rate Blood Pressure 109/64 99/53 (mmHg) O2 Sat by Pulse 100 98 Oximetry 03/26/17 03/26/17 03/26/17 04:10 05:03 08:10 Temperature 99.1 F 98.4 F 97.9 F Pulse Rate 80 91 98 Respiratory 20 16 16 Rate Blood Pressure 104/70 107/56 118/83 (mmHg) O2 Sat by Pulse 97 97 99 Oximetry 03/26/17 03/26/17 09:00 13:14 Temperature 97.7 F Pulse Rate 66 Respiratory 16 16 Rate Blood Pressure 116/62 (mmHg) O2 Sat by Pulse 98 Oximetry Oxygen Devices in Use Now: None Appearance: Patient is a 66yo female who appears stated age and is sitting in the chair in NAD. Eyes: No Scleral Icterus, PERRLA Ears/Nose/Mouth/Throat: NL Teeth, Lips, Gums, Clear Oropharnyx, Mucous Membranes Moist Neck: NL Appearance and Movements; NL JVP, Trachea Midline Respiratory: Symmetrical Chest Expansion and Respiratory Effort, Clear to Auscultation Cardiovascular: NL Sounds; No Murmurs; No JVD, RRR, No Edema Abdominal: NL Sounds; No Tenderness; No Distention, No Hepatosplenomegaly Lymphatic: No Cervical Adenopathy Extremities: No Edema, No Clubbing, Cyanosis Skin: No Rash or Ulcers, No Nodules or Sclerosis Neurological: Alert and Oriented x 3, NL Sensation, NL Gait, - - 4/5 strength in Left side in upper and lower extremities. Result Diagrams: 03/25/17 05:34 03/26/17 06:23 Additional Lab and Data: Lab Results Microbiology and Other Data: Microbiology 03/24/17 04:25 Urine Urine Culture - Preliminary Escherichia Coli Assess/Plan/Problems-Billing Assessment: Patient is a 66yo female with a PMH significant for CVA from 06/2016, Afib, DMII , HTN, and HLD who presented with syncope with epileptic activity. Continues to have staring spells and epileptic activity on EEG which has improved. - Patient Problems (1) Seizure Current Visit: Yes Status: Acute Code(s): R56.9 - UNSPECIFIED CONVULSIONS SNOMED Code(s): 88980361 Comment: Appreciate neurology input. Patient had syncope with activity consistent with seizure and post-ictal state and has been having staring spells consistent with ongoing complex partial seizures. Appreciate Neurology Consult. EEG shows epileptic discharges from area consistent with stroke. Keppra not well tolerated by patient, switched to Depakote IV. Increased to 750mg Q8H Trough at 122. Increased to 142 at next trough. Dose decreased to 500 Q8H. Recommends depakote 750mg DR PO BID at discharge. Probably secondary complication to CVA. (2) History of CVA (cerebrovascular accident) Current Visit: Yes Status: Acute Code(s): Z86.73 - PRSNL HX OF TIA (TIA), AND CEREB INFRC W/O RESID DEFICITS SNOMED Code(s): 847208263 Comment: On maximal secondary prevention. INR supratherapeutic, will hold warfarin. BP low normal and LDL excellent. MRI of brain shows no new infarction. (3) Atrial fibrillation Current Visit: Yes Status: Acute Code(s): I48.91 - UNSPECIFIED ATRIAL FIBRILLATION SNOMED Code(s): 27584812 Comment: Rate controlled, on coumadin. INR supratherapeutic. Hold Warfarin and continue to monitor. (4) HTN (hypertension) Current Visit: Yes Status: Acute Code(s): I10 - ESSENTIAL (PRIMARY) HYPERTENSION SNOMED Code(s): 94855052 Comment: Low end of Normotensive. Continue metoprolol for rate control. Will monitor. (5) HLD (hyperlipidemia) Current Visit: Yes Status: Acute Code(s): E78.5 - HYPERLIPIDEMIA, UNSPECIFIED SNOMED Code(s): 32510625 Comment: Resolved, Lipid panel excellent. (6) DMII (diabetes mellitus, type 2) Current Visit: Yes Status: Acute Comment: Slightly hyperglycemic, SSI insulin ACHS. Will monitor. (7) Full code status Current Visit: Yes Status: Acute Code(s): Z78.9 - OTHER SPECIFIED HEALTH STATUS SNOMED Code(s): 499412858 (8) DVT prophylaxis Current Visit: Yes Status: Acute Code(s): STF8651 - SNOMED Code(s): 437856125 Comment: Supratherapeutic on Warfarin Status and Disposition: Patient is admitted inpatient. Will assess for discharge when seizure activity controlled.
[2017-03-26] MEDS: Valproic Acid IV(*) 500 MG in NS 0.9% 100 ML* 100 ML IVPB SCH ×2 (15:53→23:30)
[2017-03-26] MEDS: Magnesium Oxide TAB* 400 MG PO SCH (18:03)
--- NOTE | 2017-03-26 20:27 | CONS ---
NEUROLOGY CONSULTATION: DATE OF CONSULTATION: 03/26/17 HOSPITALIST: MARI Eduardo. LOCATION: Inpatient. CLINICAL HISTORY: Seizures. INTERVAL HISTORY: Since yesterday, Ms. Madhav Tavarez is doing better. She is more alert and has had a few staring spells, but they have only been a couple. She denies intestinal problems, dizziness, or tremor. She has been up on her feet a little bit according to her daughter and she seems reasonably steady. MEDICATIONS: Medications are reviewed and she remains on: 1. Valproic acid 800 mg IV q.8 hours. 2. Warfarin. 3. Metoprolol XL 50 mg p.o. q.a.m. 4. Insulin sliding scale. 5. Ceftriaxone 1000 mg IV q. 24 hours. 6. Atorvastatin 40 mg p.o. daily. PHYSICAL EXAMINATION: On exam, she is afebrile, temperature 97.7 by temporal scan, blood pressure 116/62, heart rate currently is in the 60s and irregularly irregular. Eye movements are normal without nystagmus. Speech is clear in both Senegalese and Nepali. There is no sustention tremor in the hands. She is alert and seems fully aware of her surroundings throughout the visit today. IMAGING: She had an EEG earlier today which I reviewed, and it reveals a few epileptiform discharges from the right central parietal area, but much less than on previous days. IMPRESSION AND PLAN: Ms. Madhav Tavarez is doing much better. Her trough Depakote level this morning was elevated at 122, but we had her get 750 mg dose anyway. Her trough level now is 143 at 12:53 and so we will go ahead and cut it back to 500 mg q.8 hours. We will check another level in the morning and if she is doing well clinically, hopefully she will be discharged home on valproic acid orally probably at a dose of 750 mg b.i.d. and then follow up in my office. She lives with her daughter and so she has supervision and help at home. [id number]/[facility] #: [id number] [facility]
[2017-03-26] MEDS: ceFUROXime TAB(*) 250 MG PO SCH (21:11)
[2017-03-26] MEDS: Atorvastatin* 40 MG TAB PO SCH (21:11)
--- NOTE | 2017-03-27 05:31 | EEG ---
ELECTROENCEPHALOGRAPHY: DATE OF STUDY: 03/26/17 LOCATION: She is an inpatient in room 449. REFERRING PROVIDER: MARI Eduardo CLINICAL HISTORY: Repetitive seizures in the right side followed by staring spells. History of left hemisphere stroke. MEDICATIONS: Include Depakote. EEG DESCRIPTION: This 16-channel EEG is remarkable for background rhythms consisting of alpha rhythm in the left occipital derivations of about 8-1/2 cycles per second and a low abundance alpha rhythm approximately 7 cycles per second in the right occipital derivations. Bifrontal beta activity is noted and is fairly symmetric. There is intermittent polymorphic delta slowing from the left hemisphere. There are intermittent phase reversing spikes and sharp waves with a following slow wave seen from the right centroparietal area, mainly around the P4 electrode region. There are no clinical accompaniments and the patient is awake and able to answer questions. The patient drowses intermittently with vertex slowing and some sleep spindles noted parasagittally. When the patient is awoken, she is able to answer questions appropriately. Throughout the tracing, intermittent phase-reversing sharp and spike waves are noted from the right centroparietal region, averaging at 1 to 2 discharges per page. INTERPRETATION: Abnormal EEG due to epileptiform discharges from the right centroparietal area during wakefulness and drowsiness. Compared to the EEGs in the prior several days, epileptiform discharges are considerably less frequent. There are no clinical accompaniments to these discharges. This tracing was compatible with an epileptiform focus in the right hemisphere. [id number]/[facility] #: [id number] [facility]
[2017-03-27 07:13] LABS: Hematocrit 41 % (35-47); Hemoglobin 13.9 g/dl (12.0-16.0); Mean Corpuscular HGB Conc 34 g/dl (31-36); Mean Corpuscular Hemoglobin 31 pg (27-31); Mean Corpuscular Volume 91 fL (80-97); Mean Platelet Volume 7 um3 (7.4-10.4); Red Blood Count 4.52 10^6/ul (4.0-5.4); Red Cell Distribution Width 13 % (10.5-15); White Blood Count 7.4 10^3/ul (3.5-10.8)
[2017-03-27 07:27] LABS: Calcium 8.8 mg/dL (8.6-10.3); EGFR African American 128.6 (>60); Potassium 4.1 mmol/L (3.5-5.0)
[2017-03-27] MEDS: Insulin LISPRO* 1 UNITS UNIT SUBCUT SCH ×2 (08:02→11:48)
[2017-03-27] MEDS: ceFUROXime TAB(*) 250 MG PO SCH (08:33)
[2017-03-27] MEDS: Metoprolol Succinate XL TAB* 50 MG PO SCH (08:33)
[2017-03-27] MEDS: Potassium Chlor TAB* 20 MEQ TAB.ER PO SCH (08:34)
--- NOTE | 2017-03-27 08:44 | PN ---
Subjective Date of Service: 03/27/17 Interval History: Ms. Madhav Pena states that she is feeling well and is eager for discharge today. She denies any complaint and her daughter has not noted any symptoms suggestive of seizure activity. Family History: Unchanged from Admission Social History: Unchanged from Admission Past Medical History: Unchanged from Admission Objective Active Medications: Acetaminophen (Tylenol Tab*) 650 mg PO Q4H PRN Atorvastatin Calcium (Lipitor*) 40 mg PO 2100 [facility] Cefuroxime Axetil (Ceftin Tab(*)) 250 mg PO BID [facility] Dextrose (D50w Syringe 50 Ml*) 12.5 gm IV PUSH .FOR FS < 60 - SS PRN Valproic Acid 500 mg/ Sodium (Chloride) 105 mls @ 210 mls/hr IVPB Q8H [facility] Insulin Human Lispro (Humalog*) 0 units SUBCUT AC [facility] Lorazepam (Ativan Inj*) 0.5 mg IV PUSH Q4H PRN Magnesium Oxide (Magox 400 Tab*) 400 mg PO QPM [facility] Metoprolol Succinate (Toprol Xl Tab*) 50 mg PO QAM [facility] Ondansetron HCl (Zofran Inj*) 4 mg IV Q6H PRN Potassium Chloride (Klor Con Er Tab*) 20 meq PO DAILY [facility] Vital Signs: Temp Pulse Resp BP Pulse Ox 97.5 F 56 20 110/67 98 03/27/17 03:35 03/27/17 03:35 03/27/17 03:35 03/27/17 03:35 03/27/17 03:35 Oxygen Devices in Use Now: None Appearance: Female sitting up in bed in NAD Eyes: No Scleral Icterus Ears/Nose/Mouth/Throat: Mucous Membranes Moist Neck: Trachea Midline Respiratory: Symmetrical Chest Expansion and Respiratory Effort, Clear to Auscultation Cardiovascular: NL Sounds; No Murmurs; No JVD, No Edema Abdominal: NL Sounds; No Tenderness; No Distention Lymphatic: No Cervical Adenopathy Extremities: No Edema Skin: No Rash or Ulcers Neurological: Alert and Oriented x 3, NL Muscle Strength and Tone Nutrition: Taking PO's Result Diagrams: 03/27/17 07:05 03/27/17 07:05 Additional Lab and Data: . Microbiology and Other Data: . Assess/Plan/Problems-Billing Assessment: Ms. Madhav Pena is a 66yo female with a PMH significant for CVA from 2016, afib, DMII, HTN, and HLD who presented with syncope with epileptic activity. - Patient Problems (1) Seizure Comment: - No further seizure activity. - EEG had shown epileptic discharges from area consistent with stroke. - Appreciate neurology input. - Recommends depakote 750mg PO BID at discharge. (2) Atrial fibrillation Comment: - Rate controlled, on coumadin. - INR therapeutic. - Resume lower dose warfarin. (3) DMII (diabetes mellitus, type 2) Comment: - Resume home metformin. (4) HLD (hyperlipidemia) Comment: - Lipids at goal. (5) HTN (hypertension) Comment: - Normotensive. - Continue metoprolol for rate control. (6) History of CVA (cerebrovascular accident) Comment: - On maximal secondary prevention. - MRI of brain shows no new infarction. (7) DVT prophylaxis Comment: - Warfarin (8) Full code status Status and Disposition: Patient is admitted inpatient. Discharge to home.
[2017-03-27] MEDS: Valproic Acid IV(*) 500 MG in NS 0.9% 100 ML* 100 ML IVPB SCH (09:25)
[2017-03-27 11:53] VITALS: BP 132/86
[2017-03-27] MEDS ORDERED: Warfarin TAB(*) 4 MG PO SCH (17:00)
[2017-03-27] MEDS ORDERED: Warfarin TAB(*) 5 MG PO SCH (17:00)
--- NOTE | 2017-03-27 22:27 | CONS ---
NEUROLOGY FOLLOWUP CONSULTATION: DATE OF FOLLOWUP: 03/27/17 LOCATION: She is in room #449. HOSPITALIST: Claudia Marvin NP CHIEF COMPLAINT: Seizures. INTERVAL HISTORY: Since yesterday, Ms. Madhav Tavarez feels well and is anxious to go home. She has not had any staring spells since yesterday. Her Depakote is currently 500 mg t.i.d. and her blood level this morning, which was a trough, was 121, down from 143 yesterday. She does not look particularly sedated and no stomach problems. I did not examine her today. I will arrange for an outpatient trough valproic acid level in a week and a followup with me in a couple of weeks. I told them to call me if she has any problems with seizures or thinks she is having side effects from her medications in the interim. [id number]/[facility] #: [id number] MTDD
--- NOTE | 2017-03-28 06:16 | DS ---
CC: Dr. Garcia * DISCHARGE SUMMARY: DATE OF ADMISSION: 03/24/17 DATE OF DISCHARGE: 03/27/17 PRIMARY CARE PHYSICIAN: Dr. Garcia. ATTENDING PHYSICIAN: Dr. Juan Thompson * (dictation provided by Marques Marvin NP) PRIMARY DIAGNOSES: 1. Seizures. 2. Urinary tract infection. SECONDARY DIAGNOSES: 1. History of cerebrovascular accident, June 2016, with residual left- sided weakness. 2. Atrial fibrillation. 3. Type 2 diabetes. 4. Hypertension. 5. History of cataracts. 6. Hypercholesterolemia. 7. Osteoarthritis. PAST SURGICAL HISTORY: 1. Appendectomy. 2. Total hysterectomy. 3. Bilateral knee replacements. MEDICATIONS: At the time of discharge: 1. Depakote 750 mg p.o. b.i.d. (new medication). 2. Warfarin 5 mg p.o. daily (new dose). 3. Cefuroxime 250 mg p.o. b.i.d. x7 days (for urinary tract infection). 4. Metoprolol succinate 50 mg p.o. q.a.m. 5. Magnesium oxide 400 mg p.o. q.p.m. 6. Atorvastatin 40 mg p.o. q.p.m. 7. Metformin 500 mg p.o. b.i.d. 8. Potassium chloride 20 mEq p.o. daily. HOSPITAL COURSE: Ms. Madhav Tavarez is a 66-year-old female with past medical history of CVA in June 2016, as well as atrial fibrillation, on Coumadin, who presented to the hospital on 03/23/17 with concerns for altered mental status. Please see the dictated H and P from Stephanie Hatch NP, for complete details. In brief, the patient noted to have an unusual lost look in her eye and then a period of vomiting with minimal responsiveness. She had left arm convulsions and shaking and was ultimately brought to the emergency room for evaluation where it was suspected that she was having seizure activity. In the emergency room, the patient had CT of the brain, which showed postsurgical changes with encephalomalacia only. Ms. Madhav Tavarez was admitted to the hospital for treatment of new-onset seizures. She had an EEG on 03/24/17 which was read as follows: "Technically limited EEG due to excessive muscle and movement artifact through the majority of the tracing. There were quieter portions of spikes and sharp waves and following slow waves noted near the right central parietal area, but due to the artifactual contaminants, it was hard to be certain if these really represent epileptiform discharges." The patient was seen in consultation by Dr. Richards from Neurology. I refer you to his notes for complete details, but in brief, he agreed that the patient most likely having seizures. He recommended switching from Keppra, which had been started on admission to Depakote as he was unsure if the Keppra was contributing to restlessness. The patient had a repeat EEG on 03/25/17 which was read as follows: "Abnormal EEG due to epileptiform discharges from the right central parietal area." The patient had a brain MRI, which showed "large region of encephalomalacia likely related to previous CVA involving the right occipital lobe and cerebellum with no acute change." The patient was again seen by Dr. Richards, who agreed that the patient most likely having ongoing complex partial seizures and her Depakote was increased. On 03/26, the patient had another EEG, which was read as follows: "Abnormal EEG due to epileptiform discharges, compared to EEGs in the prior several days, epileptiform discharges are considerably less frequent. There are no clinical accompaniments to these discharges." At that point, Dr. Richards noted that her Depakote level was high and therefore decreased her down to 500 mg q.8 hours of Depakote. He is recommending that she be discharged to home on Depakote 750 mg b.i.d. With these medications, Ms. Madhav Tavarez is doing well. Her Depakote level today is 122. I reviewed the case with Dr. Richards, who agrees that the patient is appropriate for discharge to home on new valproic acid 750 mg p.o. b.i.d., to follow up outpatient with Neurology. DISPOSITION: To home. DIET: Regular. ACTIVITY: As tolerated. FOLLOWUP PLANS: Please follow up with the primary care physician, Dr. Garcia, and also please follow up with Neurology regarding new-onset seizures suspected to be related to history of right-sided CVA. TIME SPENT: Approximately 60 minutes was spent on the discharge of this patient , more than half the time spent with the patient at the bedside reviewing the events leading up to this hospitalization, performing the physical examination, and reviewing the plan of care. MARCELLO MARVIN, BODS DEVELOPER [id number]/[facility] #: [id number] [facility]
== END 2017-03-27 15:56 | disposition home health service (06) | DRG 101 ==
LOC: ED 09:04 → MEDTELE 11:40 → OBSVTOIN 03-24 09:00 → MEDTELE 03-25 07:54
PROVIDERS: ADMIT Internal Medicine; ATTEND Internal Medicine
PROC: 4A00X4Z Measurement of Central Nervous Electrical Activity, External Approach (ICD-10-PCS; principal; 2017-03-24)
DX: G40.209 Localization-related (focal) (partial) symptomatic epilepsy and epileptic syndromes with complex partial seizures, not intractable, without status epilepticus (principal); G93.89 Other specified disorders of brain; I69.354 Hemiplegia and hemiparesis following cerebral infarction affecting left non-dominant side; I48.2 Chronic atrial fibrillation; E11.9 Type 2 diabetes mellitus without complications; E78.00 Pure hypercholesterolemia, unspecified; R55 Syncope and collapse; N39.0 Urinary tract infection, site not specified; Z90.710 Acquired absence of both cervix and uterus; Z96.653 Presence of artificial knee joint, bilateral; Z79.01 Long term (current) use of anticoagulants; Z79.84 Long term (current) use of oral hypoglycemic drugs; I69.319 Unspecified symptoms and signs involving cognitive functions following cerebral infarction; Z82.49 Family history of ischemic heart disease and other diseases of the circulatory system; Z80.1 Family history of malignant neoplasm of trachea, bronchus and lung; Z98.42 Cataract extraction status, left eye; Z98.41 Cataract extraction status, right eye; M19.042 Primary osteoarthritis, left hand; M19.041 Primary osteoarthritis, right hand; M17.0 Bilateral primary osteoarthritis of knee
CPT/HCPCS: 36415; 70450; 70551; 80048; 80053; 80061; 80164; 81003; 81015; 83605; 83735; 84443; 84484; 85025; 85610; 87077; 87086; 87186; 93005; 95816; A9270-GY; G0378; G8978-GP-CI; G8979-GP-CI; G8980-GP-CI; G8987-GO-CI; G8988-GO-CI; G8989-GO-CI; J0696; J2060; J3475

== ENCOUNTER 2017-04-13 12:58 | Inpatient (IN) | payer MEDICARE ==
[2017-04-13] MEDS ORDERED: LORazepam INJ* 2 MG/ML 1 ML VIAL IV PUSH ONE (13:34)
[2017-04-13] MEDS ORDERED: LORazepam INJ* 2 MG/ML 1 ML VIAL ONE (13:35)
[2017-04-13] MEDS ORDERED: Valproic Acid IV(*) 500 MG in NS 0.9% 100 ML* 100 ML IVPB ONE (13:35)
[2017-04-13] MEDS: NS 0.9% 1000 ML*IV.FLUID IV ONE ×3 (13:45→16:37)
[2017-04-13 14:17] LABS: Comments Flag Yes; Hematocrit 39 % (35-47); Hemoglobin 13.1 g/dl (12.0-16.0); Mean Corpuscular HGB Conc 33 g/dl (31-36); Mean Corpuscular Hemoglobin 31 pg (27-31); Mean Corpuscular Volume 92 fL (80-97); Mean Platelet Volume 9 um3 (7.4-10.4); Red Blood Count 4.28 10^6/ul (4.0-5.4); Red Cell Distribution Width 14 % (10.5-15); White Blood Count 5.6 10^3/ul (3.5-10.8)
[2017-04-13 14:18] LABS: Add Diff/Slide Review? Slide Review Added
--- NOTE | 2017-04-13 14:20 | RAD ---
INDICATION: Seizure COMPARISON: None. TECHNIQUE: Single AP portable view of the chest was obtained. FINDINGS: Image quality is compromised due to the relative inferiority of a portable chest x-ray. The heart and mediastinum exhibit normal size and contour. The lungs are grossly clear. There is no evidence of a large pleural effusion. Visualized bones are normal for the patient's age. IMPRESSION: No radiographic evidence for acute cardiopulmonary abnormality on this portable chest x-ray.
[2017-04-13 14:27] LABS: Albumin 2.8 g/dL (3.2-5.2); BUN/Creatinine Ratio 16.9 (8-20); Calcium 7.8 mg/dL (8.6-10.3); EGFR African American 131.2 (>60); Globulin 2.1 g/dL (2-4); Magnesium 1.5 mg/dL (1.9-2.7); Potassium 3.6 mmol/L (3.5-5.0); Total Bilirubin 0.4 mg/dL (0.2-1.0); Total Protein 4.9 g/dL (6.4-8.9)
[2017-04-13 14:47] LABS: Immature Retic Fraction 0.31
[2017-04-13 14:51] LABS: Corrected Retic Count 0.9 % (0.5-1.5); Maturation Factor Retic 1.5
--- NOTE | 2017-04-13 14:52 | RAD ---
INDICATION: Seizure COMPARISON: CT of the brain dated March 23, 2017 TECHNIQUE: Contiguous axial sections of the brain were obtained from the skull base to the vertex without contrast. FINDINGS: There is stable cystic encephalomalacia involving the right parietal and occipital lobes. Elsewhere the richards-white matter differentiation is adequately maintained. There is no significant herniation or mass effect. There is no evidence of acute intracranial hemorrhage. The patient is status post right parietal and occipital craniectomies unchanged from the prior CT examination. The visualized portion of the paranasal sinuses and mastoid air cells appear clear. IMPRESSION: Stable encephalomalacia and postsurgical changes unchanged since March 23, 2017 CT of the brain.
[2017-04-13] MEDS ORDERED: LaCOSAMide VIAL * 200 MG/20 ML VIAL IV SCH (15:00)
[2017-04-13] MEDS ORDERED: LACOSAMIDE IVPB ONE (15:30)
[2017-04-13] MEDS ORDERED: D5W IVPB ONE ×2 (15:30→18:30)
[2017-04-13] MEDS ORDERED: Magnesium Sulfate IV* 3 GM in NS 0.9% 100 ML* 100 ML IVPB ONE (15:46)
--- NOTE | 2017-04-13 16:01 | ED ---
Oxana Pham Abhishek, scribed for Merline Moore MD on 04/13/17 at 1352 . Neurological HPI - HPI Summary HPI Summary: This patient is a 66 year old F presenting to [facility] accompanied by female and male with a chief complaint of focused seizure onset noon today (1.5 hours ago) . Patients daughter reports that pt was in a laughing spell at the onset ( 1200) as well as a history of seizure since 2 weeks. Patient was reportedly taking Depakote since two weeks ago however did not take medication today at 1000 Episode of focus seizure is ongoing since onset (1.5 hour duration). The patient rates the pain 0/10 in severity. Symptoms aggravated by nothing. Symptoms alleviated by medications. Patients family members reports sleepiness , and weakness at onset and then constant shaking and twitching. Patients family member deny patient being ambulatory - History of Current Complaint Chief Complaint: EDSeizure Stated Complaint: SEIZURE Time Seen by Provider: 04/13/17 13:17 Hx Obtained From: Family/Ergonomics Engineer Onset/Duration: Sudden Onset, Started hours ago - 1.5 hours ago, Still Present Timing: Constant Number of Seizures: 1 Pain Intensity: 0 Pain Scale Used: 0-10 Numeric Character: Other: - sleepiness and weakness at onset and then constant shaking and twitching Aggravating: Nothing Alleviating: Medication Associated Signs and Symptoms: Positive: Weakness, Seizure - Additional Pertinent History Primary Care Physician: [id number] - Allergy/Home Medications Allergies/Adverse Reactions: Allergies Allergy/AdvReac Type Severity Reaction Status Date / Time No Known Allergies Allergy Verified 03/23/17 09:32 PMH/Surg Hx/FS Hx/Imm Hx Endocrine/Hematology History: Reports: Hx Diabetes Denies: Hx Thyroid Disease Cardiovascular History: Reports: Hx Hypertension, Other Cardiovascular Problems/ Disorders - a fib, on coumadin Denies: Hx Pacemaker/ICD Respiratory History: Denies: Hx Asthma, Hx Chronic Obstructive Pulmonary Disease (COPD), Other Respiratory Problems/Disorders GI History: Denies: Hx Ulcer, Other GI Disorders Musculoskeletal History: Reports: Hx Arthritis - in hands and knees Denies: Other Musculoskeletal History Sensory History: Reports: Hx Cataracts - adin, Hx Contacts or Glasses - glasses Denies: Hx Hearing Aid Opthamlomology History: Reports: Hx Cataracts - adin, Hx Contacts or Glasses - glasses Neurological History: Reports: Hx CVA, Other Neuro Impairments/Disorders - walks with walker Psychiatric History: Denies: Hx Panic Disorder - Surgical History Surgery Procedure, Year, and Place: craniotomy, 06/21/16, [facility]. 2016, flap replaced, [place]. 2 hernias, 2004. gallbladder, 1983. c section , 1984. lazer to knee 2015. 2016, vericose vein right knee, [place] Hx Anesthesia Reactions: No Infectious Disease History: No Infectious Disease History: Denies: Hx Clostridium Difficile, Hx Hepatitis, Hx Human Immunodeficiency Virus (HIV), Hx of Known/Suspected MRSA, Hx Shingles, Hx Tuberculosis, Hx Known/ Suspected VRE, Hx Known/Suspected VRSA, History Other Infectious Disease, Traveled Outside the [place] in Last 30 Days - Family History Known Family History: Positive: Cardiac Disease, Other - Lung Cancer Negative: Diabetes - Social History Alcohol Use: None Hx Substance Use: No Substance Use Type: Reports: None Hx Tobacco Use: No Smoking Status (MU): Never Smoked Tobacco Review of Systems Constitutional: Negative Eyes: Negative ENT: Negative Cardiovascular: Negative Respiratory: Negative Gastrointestinal: Negative Genitourinary: Negative Positive: Other - shaking and twitching; non-ambulatoy Skin: Negative Neurological: Other - sleepiness Positive: Weakness Psychological: Other - altered mental state All Other Systems Reviewed And Are Negative: Yes Physical Exam - Summary Physical Exam Summary: VITAL SIGNS: Reviewed. GENERAL: ~Patient is Lethargic (FEMALE) who is lying comfortable in the stretcher. Patient is not in any acute respiratory distress. HEAD AND FACE: Rhythmic twitching which is consistent focal seizure on the left side of the face EYES: PERRLA, EOMI x 2, No injected conjunctiva, no nystagmus. EARS: Hearing grossly intact. Ear canals and tympanic membranes are within normal limits. MOUTH: Oropharynx within normal limits. NECK: Supple, trachea is midline, no adenopathy, no JVD, no carotid bruit, no c- spine tenderness, neck with full ROM. CHEST: Symmetric, no tenderness at palpation LUNGS: Clear to auscultation bilaterally. No wheezing or crackles. CVS: Regular rate and rhythm, S1 and S2 present, no murmurs or gallops appreciated. ABDOMEN: Soft, non-tender. No signs of distention. No rebound no guarding, and no masses palpated. Bowel sounds are normal. EXTREMITIES: Rhythmic twitching On the left hand, s NEURO: Alert and oriented x 3. No acute neurological deficits. Speech is normal and follows commands. She has weakness over the left side SKIN: Dry and warm Triage Information Reviewed: Yes Vital Signs On Initial Exam: Initial Vitals Temp Pulse Resp BP Pulse Ox 98.6 F 97 16 88/61 100 04/13/17 13:01 04/13/17 13:01 04/13/17 13:01 04/13/17 13:01 04/13/17 13:01 Vital Signs Reviewed: Yes Diagnostics - Vital Signs Vital Signs Temp Pulse Resp BP Pulse Ox 04/13/17 13:39 18 04/13/17 13:01 98.6 F 97 16 88/61 100 - Laboratory Lab Results: Lab Results 04/13/17 04/13/17 04/13/17 Range/Units 13:48 13:54 13:54 WBC 5.6 (3.5-10.8) 10^3/ul RBC 4.28 (4.0-5.4) 10^6/ul RBC (Retic) 4.28 L (4.6-6.2) 10^6/ul Hgb 13.1 (12.0-16.0) g/dl Hct 39 (35-47) % HCT (Retic) 39 (35-47) % MCV 92 (80-97) fL MCH 31 (27-31) pg MCHC 33 (31-36) g/dl RDW 14 (10.5-15) % Plt Count 75 L D (150-450) 10^3/ul MPV 9 (7.4-10.4) um3 Neut % (Auto) 57.4 (38-83) % Lymph % (Auto) 29.9 (25-47) % Throckmorton % (Auto) 12.3 H (1-9) % Eos % (Auto) 0.2 (0-6) % Baso % (Auto) 0.2 (0-2) % Absolute Neuts (auto) 3.2 (1.5-7.7) 10^3/ul Absolute Lymphs (auto) 1.7 (1.0-4.8) 10^3/ul Absolute Monos (auto) 0.7 (0-0.8) 10^3/ul Absolute Eos (auto) 0 (0-0.6) 10^3/ul Absolute Basos (auto) 0 (0-0.2) 10^3/ul Absolute Nucleated RBC 0 10^3/ul Nucleated RBC % 0.1 Retic Count, Calc 1.0 (0.5-1.5) % Corrected Retic Count 0.9 (0.5-1.5) % Retic Shift Factor 1.5 Retic Production Index 0.60 Immature Retic Fraction 0.31 Mean Retic Volume 119.2 INR (Anticoag Therapy) (0.77-1.02) Sodium 130 L (133-145) mmol/L Potassium 3.6 (3.5-5.0) mmol/L Chloride 98 L (101-111) mmol/L Carbon Dioxide 27 (22-32) mmol/L Anion Gap 5 (2-11) mmol/L BUN 10 (6-24) mg/dL Creatinine 0.59 (0.51-0.95) mg/dL Est GFR ( Amer) 131.2 (>60) Est GFR (Non-Af Amer) 102.0 (>60) BUN/Creatinine Ratio 16.9 (8-20) Glucose 89 (70-100) mg/dL Lactic Acid (0.5-2.0) mmol/L Calcium 7.8 L (8.6-10.3) mg/dL Magnesium 1.5 L (1.9-2.7) mg/dL Total Bilirubin 0.40 (0.2-1.0) mg/dL AST 22 (13-39) U/L ALT 13 (7-52) U/L Alkaline Phosphatase 35 (34-104) U/L Lactate Dehydrogenase 202 Cancelled (140-271) U/L Total Creatine Kinase 66 (10-223) U/L Total Protein 4.9 L (6.4-8.9) g/dL Albumin 2.8 L (3.2-5.2) g/dL Globulin 2.1 (2-4) g/dL Albumin/Globulin Ratio 1.3 (1-3) Valproic Acid 141.0 H (50-100) mcg/mL 04/13/17 04/13/17 Range/Units 13:54 13:54 WBC (3.5-10.8) 10^3/ul RBC (4.0-5.4) 10^6/ul RBC (Retic) (4.6-6.2) 10^6/ul Hgb (12.0-16.0) g/dl Hct (35-47) % HCT (Retic) (35-47) % MCV (80-97) fL MCH (27-31) pg MCHC (31-36) g/dl RDW (10.5-15) % Plt Count (150-450) 10^3/ul MPV (7.4-10.4) um3 Neut % (Auto) (38-83) % Lymph % (Auto) (25-47) % Throckmorton % (Auto) (1-9) % Eos % (Auto) (0-6) % Baso % (Auto) (0-2) % Absolute Neuts (auto) (1.5-7.7) 10^3/ul Absolute Lymphs (auto) (1.0-4.8) 10^3/ul Absolute Monos (auto) (0-0.8) 10^3/ul Absolute Eos (auto) (0-0.6) 10^3/ul Absolute Basos (auto) (0-0.2) 10^3/ul Absolute Nucleated RBC 10^3/ul Nucleated RBC % Retic Count, Calc (0.5-1.5) % Corrected Retic Count (0.5-1.5) % Retic Shift Factor Retic Production Index Immature Retic Fraction Mean Retic Volume INR (Anticoag Therapy) 3.29 H (0.77-1.02) Sodium (133-145) mmol/L Potassium (3.5-5.0) mmol/L Chloride (101-111) mmol/L Carbon Dioxide (22-32) mmol/L Anion Gap (2-11) mmol/L BUN (6-24) mg/dL Creatinine (0.51-0.95) mg/dL Est GFR ( Amer) (>60) Est GFR (Non-Af Amer) (>60) BUN/Creatinine Ratio (8-20) Glucose (70-100) mg/dL Lactic Acid 1.7 (0.5-2.0) mmol/L Calcium (8.6-10.3) mg/dL Magnesium (1.9-2.7) mg/dL Total Bilirubin (0.2-1.0) mg/dL AST (13-39) U/L ALT (7-52) U/L Alkaline Phosphatase (34-104) U/L Lactate Dehydrogenase (140-271) U/L Total Creatine Kinase (10-223) U/L Total Protein (6.4-8.9) g/dL Albumin (3.2-5.2) g/dL Globulin (2-4) g/dL Albumin/Globulin Ratio (1-3) Valproic Acid (50-100) mcg/mL Result Diagrams: 04/13/17 13:54 04/13/17 13:54 Lab Statement: Any lab studies that have been ordered have been reviewed, and results considered in the medical decision making process. - Radiology Chest X-ray Radiology Interpretation Completed By: Radiologist - CXR reveals, per radiologist, No radiographic evidence for acute cardiopulmonary abnormality on this Portable chest x-ray. ED physician has reviewed this radiology report and agrees - CT Brain CT CT Interpretation Completed By: Radiologist - A Brain CT reveals Stable encephalomalacia and postsurgical changes unchanged since March 23, 2017 CT of the brain. ED physician has reviewed this radiology report and agrees. Course/Dx - Course Course Of Treatment: This patient is a 66 year old F [facility] accompanied by female and male with a chief complaint of focused seizure onset noon today (1.5 hours ago). Patients daughter reports that pt was in a laughing spell at the onset (1200) as well as a history of seizure since 2 weeks. Patient was reportedly taking Depakote since two weeks ago however did not take medication today at 1000 Episode of focus seizure is ongoing since onset (1.5 hour duration). Patients family members reports sleepiness and weakness at onset and then constant shaking and twitching. Patients family member deny patient being ambulatory CXR reveals, per radiologist, No radiographic evidence for acute cardiopulmonary abnormality on this. Portable chest x-ray. ED physician has reviewed this radiology report and agrees. A Brain CT reveals Stable encephalomalacia and postsurgical changes unchanged since March 23, 2017 CT of the brain. ED physician has reviewed this radiology report and agrees. Patient was given Ativan in the ED course. MILK DRYING MACHINE OPERATOR slide reviewed by the label paster and showed no Schistocyte. Consulted Dr. Ren about patient care and he recommended admitting patient. We discussed patient care with Dr. Mayberry and he will accept patient care. Patient will be admitted to the [facility]. Patient dx will be seizure, and thrombocytopenia. - Diagnoses Provider Diagnoses: Seizure, Thrombocytopenia Discharge - Discharge Plan Condition: Fair Disposition: ADMITTED TO [facility] Referrals: Mario Garcia MD [Primary Care Provider] - The documentation as recorded by the Oxana avila Abhishek accurately reflects the service I personally performed and the decisions made by Oscar al Abdul, MD.
[2017-04-13 16:22] LABS: Urine Bacteria Absent (Absent); Urine Bilirubin Negative (Negative); Urine Glucose Negative (Negative); Urine Nitrite Negative (Negative)
[2017-04-13] MEDS ORDERED: LORazepam INJ* 2 MG/ML 1 ML VIAL IV PUSH PRN (16:47)
--- NOTE | 2017-04-13 17:00 | CONS ---
NEUROLOGY CONSULTATION: DATE OF CONSULTATION: 04/13/17 REFERRING PROVIDER: Dr. Merline Moore. LOCATION: She is in the emergency room. CHIEF COMPLAINT: Seizures. HISTORY OF PRESENT ILLNESS: Mrs. Madhav Tavarez is well known to me from hospitalization on 03/23/17, when she presented with focal left-sided seizures. She has a history of right hemispheric stroke presumably from atrial fibrillation and is on chronic anticoagulation. She has not had seizures before. She had twitching of the left face and stiffening of the left arm, was unresponsive when she presented. She had frequent epileptiform discharges from the right hemisphere. She was treated initially with Keppra, but continued to have sedation and intermittent focal seizures often with preservation of consciousness. She was switched to Depakote and that was adjusted over time and eventually the episodes ceased entirely. Her last EEG on 03/26/17, showed a few epileptiform discharges, but no longer any clinical seizures and was markedly improved. She has not had any seizures since. This morning, her daughter noted she had not taken her Depakote at about 8:00. She got her some yogurt or something else to help to take the medication and then left her. She had still not taken it by 10:00. At 12:00 when she saw her again, she was having left facial twitching and intermittent twitching of the left arm. She was brought into the emergency room. She did get her Depakote right before she brought her in around noon. She normally gets Depakote 750 mg twice per day on a regular basis. She showed me a lab test that she had in Dr. Garcia' office just a few days ago, where a non-trough Depakote level was 86. That was drawn about 11:00 In the morning and she had taken her morning medication at about 8:00. She had a normal chemistry profile drawn that same day, other than a sodium of 129. PAST MEDICAL HISTORY: Mainly notable for the prior stroke and the recent onset of seizures. She has chronic atrial fibrillation. She has type 2 diabetes, hyperlipidemia, and hypertension. MEDICATIONS: At the time of discharge, last visit: 1. Warfarin 5 mg p.o. daily. 2. Ceftin for urinary tract infection that she had last hospitalization, 250 mg p.o. b.i.d. 3. Depakote 750 mg p.o. b.i.d. ALLERGIES: She has no drug allergies. REVIEW OF SYSTEMS: Notable for having poor sleep last night. Her and daughter are present and they say that she is homesick for [place] where they used to live. She keeps asking to be taken back and slept poorly last night. They started some melatonin recently to see if it would help with her sleep. She had some diarrhea last night according to her . She has not had any fevers, or sweats, or chills. No shortness of breath. Her weight has generally been stable. She has been walking fine. PHYSICAL EXAMINATION: She is having focal seizures as I entered the room. Temperature 98.6. Blood pressure was initially 88/61, but came up to 118/80. Heart rate is in the 90s and appears to be irregular. Respirations 18. Skin is warm and dry. Oral mucosa is moist and atraumatic. Head is atraumatic. Neurologically, she has left facial twitching pretty frequently and intermittent left gaze deviation. She is able to talk and answer questions either directly to myself or through her daughter interpreting. She has some stiffening of the left arm and some twitching of the left hand. She is able to use the right arm purposefully. She is given 2 mg of Ativan shortly after the initiation of our evaluation and within 30 seconds the twitching stopped and she fell asleep. She had decreased muscle tone in all limbs at that point. She had bilateral Babinski signs. She had a nasal tickle response bilaterally. Funduscopic exam revealed sharp discs bilaterally. LABORATORY DATA: Pending. IMPRESSION: My impression is that of recurrent focal seizures. She missed her Depakote for at least 3 to 4 hours this morning and may have had some diarrhea last night, which may have further affected her level. She is being evaluated for possible infection or other metabolic disturbance currently. In addition to 2 mg of Ativan, I have recommended 500 mg of IV valproic acid while we await her blood levels and results of other laboratory tests. I will follow her with you. [id number]/[facility] #: [id number] [facility]ITAL[facility]
[2017-04-13] MEDS ORDERED: NS 0.9% 500 ML* 500 ML IV ONE (17:27)
[2017-04-13] MEDS ORDERED: Magnesium Sulfate 2 GM IV* 2 GM/50 ML BAG IV SCH (18:00)
[2017-04-13] MEDS ORDERED: cefTRIAXone VIAL(*) 1,000 MG in D5W 50 ML BAG* 50 ML IVPB SCH (18:00)
[2017-04-13] MEDS ORDERED: Magnesium Sulfate 1 GM IV* 1 GM/100 ML BAG IV ONE (18:00)
[2017-04-13] MEDS ORDERED: Dextrose 50% Syringe 50 ML* 25 GM/50 ML SYRINGE ONE (18:01)
[2017-04-13 18:06] LABS: PCO2 Arterial 35 mmHg (35-45)
[2017-04-13] MEDS: Cefepime(*) 1 GM in NS 0.9% 50 ML* 50 ML IVPB SCH (18:17)
[2017-04-13] MEDS: Dextrose 50% Syringe 50 ML* 25 GM/50 ML SYRINGE IV PUSH PRN ×2 (18:17→20:50)
[2017-04-13] MEDS ORDERED: VANCOMYCIN IVPB ONE (18:30)
--- NOTE | 2017-04-13 18:56 | HP ---
CONTINUATION ADDENDUM NOW INCLUDED IN THIS REPORT HISTORY AND PHYSICAL: DATE OF ADMISSION: 04/13/17 ADMITTING PROVIDER: Abraham Mayberry MD. PRIMARY CARE PROVIDER: Dr. Garcia. PRIMARY CYBER SYSTEMS ENGINEER: Dr. Cervantes. PRIMARY NEUROLOGIST: Dr. Richards. CHIEF COMPLAINT: Seizures. PAST MEDICAL HISTORY: 1. CVA, June 2016, of the right occipital lobe. 2. AFib, on Coumadin. 3. Diabetes mellitus type 2, noninsulin dependent. 4. Hypertension. 5. Osteoarthritis. 6. Hyperlipidemia. 7. Cataracts. 8. Obesity (BMI of 35.9). HISTORY OF PRESENT ILLNESS: Alicia Tavarez is a 66-year-old female, PMH as above, who was recently hospitalized with seizures, and E. coli UTI, now status post 7 days' treatment completed with cefuroxime as an outpatient. Since her seizure, she has had some slight residual weakness on her left side, some cognitive and memory decline. She was started on Keppra while in the hospital, but started to have hallucinations on it was changed to Depakote, still has had some intermittent hallucinations with the Depakote, has had a hard time sleeping. She has been especially tired over the last 2 days. She followed with Dr. Garcia 3 days prior to admission, on 04/10/17, and urinalysis was repeated, which reportedly showed no signs of recurrent UTI. Dr. Garcia reportedly did a Depakote level; those results are not available. The patient this morning was still asleep around 10 a.m. Daughter checked on her, placed her medications at the bedside table along with something to eat. On recheck around noon, the patient had still not woken up. So, she woke the patient up and gave her, her Depakote. The patient was then noticed to have a shift to her eyes to the left and her left arm, which had been somewhat noticeably weaker a day prior to admission, seemed to not be able to hold a bottle of water. Her face started to twitch and her lips started to twitch. She was taken to the [facility] for suspicion of seizures. Her seizures, apparently, enable her to still communicate through them. She was talking in [place] to her daughter and this was noted to be similar to her partial seizures during last admission as well. She continued to have the twitching and so she was given 2 mg of Ativan around 1330, at which time the twitching stopped and she became quite somnolent. Blood pressure initially 88/ 61, then decreased to the high 60s/40s. She was given IV fluids, with improvement (2.2 L normal saline). She also had an episode of palpitations either on Friday or Friday, 4 to 5 days prior to admission, per . and daughter provided all of the history given the somnolence. MEDICATIONS: Home medications include: 1. Warfarin 5 mg p.o. daily. 2. Lipitor 40 mg p.o. daily. 3. Potassium chloride 20 mEq p.o. daily. 4. Metoprolol succinate 50 mg p.o. q.a.m. 5. Magnesium oxide 400 mg p.o. q.p.m. 6. Depakote 750 mg p.o. b.i.d. 7. Metformin 500 mg b.i.d. SOCIAL HISTORY: Former occasional smoker. No significant alcohol or other drug use. Born in [facility], here in this country for 43 years. In terms of job, worked as a salesperson meats, now retired. FAMILY HISTORY: Siblings and mother with diabetes. Father of liver infection. REVIEW OF SYSTEMS: Not obtainable, except as per HPI. PHYSICAL EXAMINATION GENERAL APPEARANCE: The patient is somnolent, snoring loudly in the hospital bed. Briefly moves extremities to stimulation. CONTINUATION ADDENDUM: VITAL SIGNS: Currently, 108/83, satting 96% on room air, respiratory rate 17, heart rate 95, temperature 98.6. HEENT: Pupils 2 to 1 bilaterally reactive to light. No scleral icterus. Snoring loudly. NECK: Supple. RESPIRATORY: Anteriorly clear except for snoring. CARDIOVASCULAR: Regular rate. Tachycardic. No murmurs, rubs, or gallops appreciated. ABDOMEN: Soft, nontender, obese. EXTREMITIES: Warm, well perfused. No peripheral edema. NEUROLOGIC: The patient is responding to pain in all 4 extremities with grimacing. Not following commands. Deeply snoring. Sedated after Ativan 2 mg. No twitching noticed or involuntary movements. LABORATORY DATA: WBC is 5.6, hemoglobin 13.1, hematocrit 39, platelets 75. INR 3.29. Sodium 130, potassium 3.6, chloride 98, carbon dioxide 27, BUN 10, creatinine 0.59. Magnesium 1.5. LFTs within normal limits except for albumin 2.8. Valproic acid 141.0. IMAGING: CT of the brain demonstrates stable encephalomalacia and postsurgical changes unchanged since 03/23/17. Encephalomalacia involves the right parietal and the septal lobes. Chest x-ray demonstrated no acute cardiopulmonary process. ASSESSMENT AND PLAN: Alicia Tavarez is a 66-year-old female with history of right parietal and a septal lobe cerebrovascular accident; atrial fibrillation, on Coumadin; diabetes; hypertension; and recently diagnosed with seizures (complex, partial) that seemingly has failed outpatient Depakote and may have been exacerbated in the setting of potential recurrent infection. Appreciate Dr. Richards's recommendations. She is admitted under observation status. 1. Seizure activity resolved after 2 mg of Ativan. She is being transitioned to Vimpat and monitoring overnight to confirm continued seizure-free activity. She is going to get an EEG in the morning. 1 mg Ativan q.10 minutes has been ordered p.r.n. for return of seizure-like activity. We will follow up the lactic acid and urinalysis. 2. History of recent urinary tract infection. Complete 7 day course of cefuroxime. Afebrile here now. 3. History of atrial fibrillation. Hold her warfarin given the elevated INR, likely restart tomorrow. Get repeat INR tomorrow. Hold her metoprolol given relative hypotension. Replete magnesium above 2, potassium above 4. 4. Start on carbohydrate consistent diet. 5. She is a full code. Medical surrogate is her spouse Kristopher Caputo. [id number]/[facility] #: [id number]/[facility] #: [id number] [facility]
[2017-04-13] MEDS: NS 0.9% 1000 ML* 1,000 ML IV SCH (19:33)
[2017-04-13] MEDS ORDERED: Vancomycin per Pharmacy* NOTE FOLLOW UP PRN (19:36)
--- NOTE | 2017-04-13 19:54 | HP ---
HISTORY AND PHYSICAL: ADDENDUM: PHYSICAL EXAMINATION VITAL SIGNS: Currently, 108/83, satting 96% on room air, respiratory rate 17, heart rate 95, temperature 98.6. HEENT: Pupils 2 to 1 bilaterally reactive to light. No scleral icterus. Snoring loudly. NECK: Supple. RESPIRATORY: Anteriorly clear except for snoring. CARDIOVASCULAR: Regular rate. Tachycardic. No murmurs, rubs, or gallops appreciated. ABDOMEN: Soft, nontender, obese. EXTREMITIES: Warm, well perfused. No peripheral edema. NEUROLOGIC: The patient is responding to pain in all 4 extremities with grimacing. Not following commands. Deeply snoring. Sedated after Ativan 2 mg. No twitching noticed or involuntary movements. LABORATORY DATA: WBC is 5.6, hemoglobin 13.1, hematocrit 39, platelets 75. INR 3.29. Sodium 130, potassium 3.6, chloride 98, carbon dioxide 27, BUN 10, creatinine 0.59. Magnesium 1.5. LFTs within normal limits except for albumin is 2.8. Valproic acid 141.0. IMAGING: CT of the brain demonstrates stable encephalomalacia and postsurgical changes unchanged since 03/23/17. Encephalomalacia involves the right parietal and the septal lobes. Chest x-ray demonstrated no acute cardiopulmonary process. ASSESSMENT AND PLAN: Alicia Tavarez is a 66-year-old female with history of right parietal and a septal lobe cerebrovascular accident; atrial fibrillation, on Coumadin; diabetes; hypertension; and recently diagnosed with seizures (complex, partial) that seemingly has failed outpatient Depakote and may have been exacerbated in the setting of potential recurrent infection. Appreciate Dr. Richards's recommendations. She is admitted under observation status. 1. Seizure activity resolved after 2 mg of Ativan. She is being transitioned to Vimpat and monitoring overnight to confirm continued seizure-free activity. She is going to get an EEG in the morning. 1 mg Ativan q.10 minutes has been ordered p.r.n. for return of seizure-like activity. We will follow up the lactic acid and urinalysis. 2. History of recent urinary tract infection. Complete 7 day course of cefuroxime. Afebrile here now. 3. History of atrial fibrillation. Hold her warfarin given the elevated INR, likely restart tomorrow. Get repeat INR tomorrow. Hold her metoprolol given relative hypotension. Replete magnesium above 2, potassium above 4. 4. Start on carbohydrate consistent diet. 5. She is a full code. Medical surrogate is her spouse Kristopher Caputo. [id number]/[facility] #: [id number] MTDD
[2017-04-13 20:56] LABS: PCO2 Arterial 36 mmHg (35-45)
[2017-04-13] MEDS ORDERED: NS 0.9% 1000 ML* 1,000 ML IV ONE ×2 (21:27→23:00)
[2017-04-13] MEDS: Atorvastatin* 40 MG TAB PO SCH (21:50)
[2017-04-14] MEDS ORDERED: Norepinephrine 16MCG/ML IVPRE* 4,000 MCG/250 ML BAG IV ONE (00:08)
--- NOTE | 2017-04-14 00:13 | PN ---
Progress Note - Progress Note Date of Service: 04/14/17 Note: Paged for persistent hypotension - given a total of 4 L NS bolus's and remains hypotensive. Minimally responsive with shallow breathing. ABG from earlier was unremarkable. Will obtain another ABG now and start levophed. Is on broad spectrum antibiotics.
[2017-04-14] MEDS: Norepinephrine 16MCG/ML IVPRE* 4,000 MCG/250 ML BAG IV SCH ×2 (00:21→07:14)
[2017-04-14 01:05] LABS: PCO2 Arterial 37 mmHg (35-45)
[2017-04-14] MEDS: NS 0.9% 1000 ML* 1,000 ML IV SCH ×2 (04:17→12:33)
[2017-04-14 05:42] LABS: Hematocrit 24 % (35-47); Hemoglobin 8.1 g/dl (12.0-16.0); Mean Corpuscular HGB Conc 34 g/dl (31-36); Mean Corpuscular Hemoglobin 32 pg (27-31); Mean Corpuscular Volume 93 fL (80-97); Mean Platelet Volume 8 um3 (7.4-10.4); Red Blood Count 2.57 10^6/ul (4.0-5.4); Red Cell Distribution Width 14 % (10.5-15); White Blood Count 7.2 10^3/ul (3.5-10.8)
[2017-04-14 05:43] LABS: Comments Flag Yes
[2017-04-14 05:58] LABS: Blood Urea Nitrogen 3 mg/dL (6-24); EGFR African American 457.1 (>60); EGFR Non-African American 355.4 (>60); Glucose 58 mg/dL (70-100); Sodium 143 mmol/L (133-145)
[2017-04-14] MEDS ORDERED: LACOSAMIDE IVPB SCH (06:00)
[2017-04-14] MEDS ORDERED: D5W IVPB SCH (06:00)
[2017-04-14] MEDS: Cefepime(*) 1 GM in NS 0.9% 50 ML* 50 ML IVPB SCH (07:05)
[2017-04-14] MEDS ORDERED: Vancomycin(*) 1,000 MG in NS 0.9% 250 ML* 250 ML IVPB SCH (08:00)
[2017-04-14] MEDS ORDERED: LORazepam INJ* 2 MG/ML 1 ML VIAL IV PUSH ONE ×2 (08:30→17:12)
[2017-04-14] MEDS ORDERED: LORazepam INJ* 2 MG/ML 1 ML VIAL ONE (08:32)
[2017-04-14] MEDS ORDERED: LACOSAMIDE IVPB ONE (09:00)
[2017-04-14] MEDS ORDERED: Vancomycin Trough Check NOTE FOLLOW UP ONE (09:00)
[2017-04-14] MEDS ORDERED: NS 0.9% IVPB ONE (09:00)
[2017-04-14] MEDS ORDERED: Potassium Chlor TAB* 20 MEQ TAB.ER PO SCH (09:00)
[2017-04-14] MEDS ORDERED: Fosphenytoin(*) 1,000 MG in NS 0.9% 50 ML* 50 ML IVPB ONE (09:15)
[2017-04-14] MEDS ORDERED: Albumin Human 5%* 250 ML in PREMIX* 0 ML IV ONE ×2 (10:00→11:00)
[2017-04-14 11:07] LABS: Corrected Retic Count 0.9 % (0.5-1.5); Hematocrit 40 % (35-47); Hemoglobin 12.9 g/dl (12.0-16.0); Immature Retic Fraction 0.28; Mean Corpuscular HGB Conc 33 g/dl (31-36); Mean Corpuscular Hemoglobin 30 pg (27-31); Mean Corpuscular Volume 93 fL (80-97); Mean Platelet Volume 8 um3 (7.4-10.4); Red Blood Count 4.26 10^6/ul (4.0-5.4); Red Cell Distribution Width 14 % (10.5-15); White Blood Count 9.7 10^3/ul (3.5-10.8)
[2017-04-14 11:08] LABS: BUN/Creatinine Ratio 11.1 (8-20); Calcium 6.8 mg/dL (8.6-10.3); EGFR African American 179.3 (>60); EGFR Non-African American 139.4 (>60); Potassium 2.9 mmol/L (3.5-5.0)
[2017-04-14 11:10] LABS: Comments Flag Yes
[2017-04-14] MEDS ORDERED: NS 0.9% 1000 ML* 2,000 ML IV ONE (11:10)
[2017-04-14 11:12] LABS: Venous Bicarbonate HCO3 18.6 mmol/L (24-28)
[2017-04-14] MEDS: Hydrocortisone INJ* 100 MG VIAL IV SCH ×2 (11:46→20:27)
[2017-04-14] MEDS ORDERED: KCL 20 MEQ/100 ML IVPREMIX* 20 MEQ/100 ML BAG IV SCH (13:00)
[2017-04-14] MEDS ORDERED: Magnesium Sulf 4 GM/100 ML IV* 4,000 MG/100 ML BAG IVPB ONE (13:00)
--- NOTE | 2017-04-14 13:01 | CONS ---
NEUROLOGY FOLLOWUP CONSULTATION: DATE OF CONSULT: 04/14/17 LOCATION: She is in the ICU, bed 6. HOSPITALIST: Dr. aMyberry. SWIMMING POOL INSTALLER AND SERVICER: Dr. Mejía. INTERVAL HISTORY: Since yesterday, Ms. Madhav Tavarez has decompensated. Apparently in the midd le of the night, she became hypotensive and was transferred to the intensive care unit. She was give n 4 L of fluid, but remained hypotensive. Dr. Blancas saw her in the environmental engineering manager hours and transferre d her. She was started on pressors and broad-spectrum antibiotics. Her blood gas at 1756 yesterday was pH 7.4, pCO2 of 35, pO2 of 254. She has been on positive airway pressure by mask since last nigh t and on pressors. She has been unresponsive. EEG was applied this morning and I was called by our tree and shrub technician and she has fairly continuous right hemisphere epileptiform discharges, without epileptifo rm discharges on the left hemisphere. She has had no overt clinical seizures since in the emergency room yesterday. She has developed a number of other laboratory abnormalities since admission. Her platelet count megan pped from 75,000 yesterday to 53,000 this morning. I had reviewed blood work that she had from 04/[address] Garcia' office that her daughter had on her cellphone and her platelet count at that point was 105,000 and that she had a normal hemoglobin and white blood cell count. Her Depakote level at that point was 82 and her chemistry profile was normal other than a sodium of 129. Since yesterday, h er hemoglobin has dropped from 13.1 to 8.1. Her white blood cell count remains normal at 7.2 without a shift. Her chemistries have been hard to assess as she has been vasoconstricted and they have not been able to get blood out of her since last night. She is currently getting a PICC line put in. CURRENT MEDICATIONS: Consisted of: 1. Cefepime which I discontinued. 2. Vancomycin. 3. Norepinephrine. 4. Lacosamide which I also discontinued upon arrival. 5. Atorvastatin, she has not gotten. Her Depakote level yesterday in the emergency room was 141 after getting her dose an hour or two befo re that. Urinalysis yesterday was notable for specific gravity of 1.005 and 1+ blood and trace red blood cells . Her INR in the emergency room yesterday was 3.29 and PTT 44.5. PHYSICAL EXAM: She is unresponsive with eyes closed and a positive airway pressure mask on. Her tem perature is running consistently 97.9 by Beaulieu probe, blood pressure is generally running about 100 o r less/70-80, heart rate is in the 80s and in atrial fibrillation on the monitor. She song irregular r espirations, but oxygen saturation remains 100%. Heart is in an irregular rhythm, but I do not hear any murmurs. Abdomen is soft and does not elicit any pain with palpation. I hear rare bowel sounds. Neurologically, pupils react weakly from 2.5 to 2 mm bilaterally. I cannot get a good look at her fu ndus. Eye movements are relatively mid position and somewhat roving. She has a weak corneal reflex on the right, but not on the left. She has fairly symmetric facial grimacing. She has occasional tw itching of the left lower eyelid. There are no other twitching movements and no extremity movements. Muscle tone is generally decreased. She winces to pain and does some withdrawal of all limbs. Mena ntar responses reveal triple flexion with toe extension in both legs. IMPRESSION: Impression is that of significant decline for unclear reasons. Specifically, she seemed to have been developing thrombocytopenia at least as early as last week and that has aggressively pro gressed. In addition, she has had a very significant drop in hemoglobin without any source of bleedi ng. She has not had a bowel movement yet, however. I discussed her case with Dr. Mejía who will take over her care in the intensive care unit. I have stopped the lacosamide because of her decline and I had stopped Depakote because of the thrombocytop enia in the emergency room yesterday. I have written orders to load her with fosphenytoin and will c ontinue EEG monitoring continuously. Discussed her situation with her daughter, Maris and her . I told them that there seems to be something else going on besides just recurrent seizures and that there is some other medical illness , which may have triggered recurrence of seizures. I explained that Depakote can cause thrombocytope mary ellen, but there is something else serious going on in terms of difficulty maintaining blood pressure a nd drop in hemoglobin. TIME SPENT: Sixty minutes so far have been spent in direct patient care, ICU time, and discussion of the patient's clinical status with the family and also with Dr. Mejía and Dr. Mayberry. [id number]/[facility] #: [id number]
[2017-04-14] MEDS: NS 0.9% w/ 40 Meq KCL 1000 ML* 1,000 ML IV SCH ×2 (13:27→15:40)
--- NOTE | 2017-04-14 13:40 | ECHO ---
Patient: BLANCA SALVADOR [facility] Rec#: [id number] : 1950 Date: 04/14/2017 Age: 66y Height: 147.32 cm / 58.0 in Weight: 78.02 kg / 172.0 lbs Sex: F BSA: 1.71 Room#: ICU 6 Admit Date#: 04/13/2017 Type: Inpatient Referring: Daniel Mejía Reading: Uli Haines MD Anchorer: Fe Roldan,BARBARACS,RDMS CC: Mario Garcia MD Transthoracic Echocardiogram Indication: Hypotension BP: 116/81 HR: 81 Rhythm: A-Fib Findings History: CVA, AFIB, DM, HTN, HLD Technical Comments: The study quality is fair. Left Ventricle: The left ventricular chamber size is normal. Moderate concentric left ventricular hypertrophy is observed. Global left ventricular wall motion and contractility are within normal limits. There is normal left ventricular systolic function. The estimated ejection fraction is 55-60%. The assessment of diastolic function is non-diagnostic. Left Atrium: The left atrium is moderate to severely dilated. Right Ventricle: The right ventricle wall thickness is moderately increased. The right ventricular cavity size is normal. The right ventricular global systolic function is hyperdynamic. Right Atrium: The right atrium is slightly dilated. Aortic Valve: The aortic valve is trileaflet. The aortic valve leaflets are mildly thickened. Systolic excursion of the aortic valve is normal. There is a trace of aortic regurgitation. There is no evidence of aortic stenosis. Mitral Valve: Mild mitral annular calcification present. There is trace to mild mitral regurgitation. There is no evidence of mitral stenosis. Tricuspid Valve: The tricuspid valve leaflets are normal. There is mild tricuspid regurgitation. No pulmonary hypertension is noted. Pulmonic Valve: The pulmonic valve structure is not well visualized. There is no evidence of pulmonic regurgitation. Pericardium: There is no significant pericardial effusion. Aorta: The aortic root appears normal. The aortic arch is not well visualized. Pulmonary Artery: The main pulmonary artery is not well visualized. Venous: The inferior vena cava is dilated. Conclusions The study quality is fair. Moderate concentric left ventricular hypertrophy is observed. Global left ventricular wall motion and contractility are within normal limits. There is normal left ventricular systolic function. The estimated ejection fraction is 55-60%. The right ventricular global systolic function is hyperdynamic. Systolic excursion of the aortic valve is normal. There is a trace of aortic regurgitation. There is trace to mild mitral regurgitation. There is mild tricuspid regurgitation. There is no significant pericardial effusion. Measurements Name Value Normal Range RVIDd (AP) 2D 2.5 cm (0.9 - 2.6) RVDdMajor (2D) 3 cm (2.2 - 4.4) RAd ISD 4CH 5 cm (3.4 - 4.9) RA (A4C)W 4.1 cm (2.9 - 4.6) IVSd (2D) 1.4 cm (0.6 - 1) LVPWd (2D) 1.4 cm (0.6 - 1) LVIDd (2D) 4.4 cm (3.6 - 5.4) LVIDs (2D) 2.7 cm - LV FS (2D) 38 % (25 - 45) Aortic Annulus 2 cm (1.4 - 2.6) Ao root diameter (2D) 2.9 cm (2.1 - 3.5) Ascending Ao 2.5 cm (2.1 - 3.4) LA dimension (AP) 2D 4.5 cm (2.3 - 3.8) LAd ISD 4CH 6.9 cm (2.9 - 5.3) LA ISD 4CH W 5.2 cm (2.5 - 4.5) Name Value Normal Range LA ESV SP 4CH (A/L) 91.61 ml - LA ESV SP 2CH (A/L) 64.24 ml - LA ESV BP (A/L) 83.08 ml - LA ESV BP (A/L) index 49 ml/m2 - LA ESV SP 4CH (MOD) 83.07 ml - LA ESV SP 2CH (MOD) 58.51 ml - Name Value Normal Range MV E-wave Vmax 1 m/sec - MV deceleration time 195 msec - LV lateral e' Vmax 0.13 m/sec - LV E:e' lateral ratio 8 ratio - Name Value Normal Range AV Vmax 1.2 m/sec - AV peak gradient 6 mmHg - LVOT Vmax 0.9 m/sec - LVOT peak gradient 3.2 mmHg - Name Value Normal Range TR Vmax 2.1 m/sec - TR peak gradient 18 mmHg - RAP 8 mmHg - RVSP 26 mmHg - IVC diameter 2.4 cm - Name Value Normal Range PV Vmax 0.7 m/sec - PV peak gradient 2 mmHg -
[2017-04-14] MEDS ORDERED: FOSPHENYTOIN IVPB ONE (14:00)
[2017-04-14] MEDS ORDERED: D5W IVPB ONE (14:00)
[2017-04-14] MEDS ORDERED: levETIRAcetam IV* 1,000 MG in NS 0.9% 100 ML* 100 ML IVPB SCH (14:00)
[2017-04-14] MEDS ORDERED: Propofol* 100 ML ONE (14:35)
--- NOTE | 2017-04-14 14:41 | CONSULT ---
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 She was placed on depakote. No reported seizures until yesterday and presented to ED. Neuro eval and vimnpat given and off depakote given thrombocytopenia. Had recieved 2 ativan as well. Pt admitted to the floor but quickly decompensated and CAT call more to ICU. low sat and hypotensive. questioned infection and pt started on fluid bolus, abx, and bipap. She required levophed this am and icu consulted. Evaluated with Dr. Richards as well. Pts daughter at bedside. REVIEW OF SYSTEMS: As per HPI. Daughter reports pt with dec uout. Plt 105k Apr 08. PAST MEDICAL HISTORY: As per HPI. afin on coumadin. DM. Obesity. htn MEDICATIONS: Reviewed. ALLERGIES: Reviewed. None. SOCIAL HISTORY: Reviewed. Japanese speaking FAMILY HISTORY: Noncontributory at present. PHYSICAL EXAM: no distress, but eyes close. occasional myoclonus left orbit Vital Signs: Reviewed. Hr 80s. SBP 100 and diastolics into 50-60s. RR sync with bipap at 14. 40%; sats well. Neurologic: seizure; eeg on, does response to voice. HEENT: anicteric, perrl Cardiovascular: distant, S1, S2, no m appreciated Respiratory: coarse but clear but non-adequete excursion requiring bipap to remain Abdomen: obese, soft. no organomegaly. nt Extremities: cold bl; bl hands with del rio petechiae appearance. No petechiae appreciated elsewhere. delay cap refill Access: picc LABS: Reviewed. IMAGING: Reviewed. MEDICATIONS: Reviewed. ASSESSMENT: 66 F Status epilepticus, partial complex Acute hypoxic resp failure Hypovolemic shock Acute thrombocytopenia PLAN: Neurologic: neuro aggressively tx SE, but not changing much. May end up needing further rx or even propofol gtt to avoid ongoing SE. CT stable. Trigger is questionable and whether a metabolic or infectious cause, although none apparent. AED per neuro. Hopefully this is just seizure and drug affects but needs time to prove. Cardiovascular: Checked LA and benign. C0ld and vasoconstricted on exam. Hr not up but on bb. requiring levophed at this juncture for persumed hypovolemia. FLuid resusciate. Question is why hypovolemic. Other ddx inclu relative adrenal insuff for which I'm giving empiric steroids. can check random cortisol for what its worth. r/o cardiogenic ailment with echo. Doubt just medication or neurogenic related as not vasodilated. Could have aspirated on move to floor last pm and early SIRs responding still. Regarless, currently needs to maintain better cerebral perfusion. Map goal 70 for now until better sorted. Respiratory: jud bipap but given her encephalopathy degree can't maintain with this all day. If neurostatus improves post hemodynamic improvement then we may have time to avoid intubation; otherwise likely need intubation today (daughter made aware of such). Otherwise no real lung path identified as primary ailment. Gastrointestinal: Liver enz ok; amm ok. f/u nutrition. Renal/Metabolic: cr low. LA benign. fluid follow up. morales with uout. Infectious Disease: empiric tx and cefepime off due to seizure threshold. No infectious signs otherwise and can dc abx later today if better sorted. Hematology: on coumadin and tx. plt are concerning: does not seem to show signs of bleeding. no showing a hemolytic anemia either. BUN benign so TTP/HUS shouldn't be in ddx. No recent heparin at all to put REBEKAH in ddx. depakote itself is the biggest suspect, but this alone shouldn't lead to her current condition. perhaps, it is relatively unrelated, but yet no unifying diagnosis either. Ask onc to eval. Endocrine: stress dose steroids. was on metformin. LA benign. able to become hypoglycemic but recovered. Musculoskeletal: avoid decontioning. Psych/Social: daughter updated at bedside Supportive and preventative care as ordered. SUP: ppi VTE prophylaxis: on coumadin Morales catheter given critical illness, monitoring needs for accurate assessment of DANIKA and KDIGO criteria for critically ill patients and to avoid potential harms of urinary retention, skin breakdown/ulcers. Disposition: ICU Code Status: Full Critical Care Time: 45min D/w Dr. Maurice Mejía,
[2017-04-14] MEDS ORDERED: fentaNYL* 50 MCG/ML 5 ML VIAL (250 MCG VIAL) ONE (14:50)
[2017-04-14] MEDS ORDERED: Propofol* 10 MG/ML 20 ML BTL IV PUSH ONE (14:53)
--- NOTE | 2017-04-14 15:07 | PN ---
Progress Note - Progress Note Date of Service: 04/14/17 Note: CRITICAL CARE MEDICINE PROCEDURE NOTE DATE: 04/14/17 TIME: 1500 SERVICE: Critical Care Medicine LOCATION OF PROCEDURE: ICU PROCEDURE: Endotracheal intubation PROCEDURALIST: Dr. Mejía Consent obtain: Yes d/w pts daughter, but procedure performed emergently Time out held: Not indicated INDICATION: Acute respiratory failure. PROCEDURE: Oxygenation maintained and vitals monitored. Patient in supine position. Pre-medication with fentanyl 100mcg / propofol 50mg. Glidescope #3 inserted with Grade 1 view obtained. 7.5 endotracheal tube inserted to 21cm lip. Good chest rise with breath sounds appreciated in bilaterally lung arroyo. EtCO2 + color change. Portable chest x-ray pending. Patient otherwise tolerated well. Esequiel Mejía, DO
[2017-04-14] MEDS: LEVETIRACETAM IVPB SCH ×2 (15:16)
[2017-04-14] MEDS ORDERED: cefTRIAXone VIAL(*) 1,000 MG in NS 0.9% 50 ML* 50 ML IVPB SCH (16:00)
--- NOTE | 2017-04-14 16:04 | RAD ---
INDICATION: Post intubation COMPARISON: April 13, 2017 TECHNIQUE: An AP portable view obtained at 1530 hours is submitted. FINDINGS: Bones/Soft Tissues: There are no acute bony findings. There is an endotracheal tube in satisfactory position. Nasogastric tube passes normally through the mediastinum Cardiomediastinal: The cardiomediastinal silhouette is normal. Lungs: There is interstitial prominence with mild airspace disease in the left lung base. Pleura: Small left-sided effusion. Other: None IMPRESSION: ENDOTRACHEAL AND OROGASTRIC TUBES IN EXPECTED POSITION. MILD LEFT BASILAR ABNORMALITIES.
[2017-04-14] MEDS ORDERED: cefTRIAXone VIAL(*) 1,000 MG in D5W 50 ML BAG* 50 ML IVPB SCH (17:14)
[2017-04-14] MEDS: Chlorhexidine MOUTHWASH 0.12%* 15 ML UDC TOPICAL SCH ×2 (17:15→20:27)
[2017-04-14] MEDS: Magnesium Oxide TAB* 400 MG PO SCH (17:15)
[2017-04-14] MEDS: Insulin REGULAR(*) 1 UNITS UNIT SUBCUT SCH (18:37)
[2017-04-14] MEDS: Propofol* 100 ML IV SCH ×2 (19:39→21:52)
[2017-04-14] MEDS: Fosphenytoin(*) 100 MG/2 ML VIAL IV SLOW PU SCH (21:56)
[2017-04-14] MEDS: Atorvastatin* 40 MG TAB PO SCH (21:57)
--- NOTE | 2017-04-14 23:04 | CONS ---
NEUROLOGY CONSULTATION: ADDENDUM: DATE OF CONSULT / DICTATION: 04/14/17 LOCATION: She is in ICU, bed 6. INTERVAL FOLLOWUP: Since seen earlier today, Ms. Caputo has been intubated. She is now on propofol. Her blood pressure seems to be improved. Her nurse informs me that she would reach up with her hands and move her legs after she had intubated and she seems to be moving both sides pretty well. She is now on propofol, and chest x-ray confirms appropriate placement of tubes. Her nurse informs me that she would probably start getting nasogastric tube feedings this evening. DIAGNOSTIC STUDIES: She had an echocardiogram earlier today. Left ventricular function was normal and the left atrium was severely dilated. Right ventricular function was hyperdynamic and the inferior vena cava was dilated. Her EEG continues to show frequent epileptiform discharges from the right hemisphere. Her background still looks symmetrical in the left hemisphere. There is no major suppression of background activity, but there is some additional slowing. IMPRESSION AND PLAN: We will continue to monitor. Propofol needs to be increased to suppress epileptiform discharges and we will continue her on fosphenytoin and levetiracetam with maintenance doses. Also, check her fosphenytoin level in the morning. [id number]/[facility] #: [id number] [facility]
[2017-04-15] MEDS: Propofol* 100 ML IV SCH ×7 (00:40→21:36)
[2017-04-15] MEDS: Chlorhexidine MOUTHWASH 0.12%* 15 ML UDC TOPICAL SCH ×6 (00:58→20:43)
[2017-04-15] MEDS: Insulin REGULAR(*) 1 UNITS UNIT SUBCUT SCH ×4 (00:58→17:25)
[2017-04-15] MEDS: Hydrocortisone INJ* 100 MG VIAL IV SCH ×3 (02:57→20:43)
[2017-04-15] MEDS: LEVETIRACETAM IVPB SCH ×2 (02:57)
[2017-04-15] MEDS: Norepinephrine 16MCG/ML IVPRE* 4,000 MCG/250 ML BAG IV SCH ×2 (03:26→21:39)
[2017-04-15 06:15] LABS: Phenytoin 8.9 mcg/mL (10-20)
[2017-04-15 06:20] LABS: Hematocrit 35 % (35-47); Hemoglobin 12.5 g/dl (12.0-16.0); Mean Corpuscular HGB Conc 36 g/dl (31-36); Mean Corpuscular Hemoglobin 33 pg (27-31); Mean Corpuscular Volume 91 fL (80-97); Mean Platelet Volume 9 um3 (7.4-10.4); Red Blood Count 3.82 10^6/ul (4.0-5.4); Red Cell Distribution Width 14 % (10.5-15); White Blood Count 9.2 10^3/ul (3.5-10.8)
[2017-04-15 06:26] LABS: Calcium 6.4 mg/dL (8.6-10.3); EGFR African American 256.4 (>60); EGFR Non-African American 199.4 (>60); Magnesium 1.9 mg/dL (1.9-2.7); Phosphorus 1.4 mg/dL (2.5-5.0); Potassium 3.6 mmol/L (3.5-5.0)
--- NOTE | 2017-04-15 06:35 | EEG ---
FCI VIDEO/EEG MONITORING - Monitoring Monitoring Start Date: 04/14/17 Current Monitoring Session: 04/14/17 from 08:07 to 13:04 then 13:06 to 13:36 then 13:38 to 07:04 EEG Clinical Indication: Alicia Pena is a 66 year old woman with atrial fibrillation on Coumadin who experienced a stroke in the right hemisphere in June. In March, she presented with new onset seizures and was treated with Depakote. She presented to the ER on 04/13 in focal status epilepticus with twitching of the left face and arm in the setting of being late with her morning dose of Depakote. She was also found to by hypotensive with laboratory abnormalities such as thrombocytopenia and hyponatremia. She continued to be unresponsive so EEG was requested to evaluate for non-convulsive seizures and follow the course of treatment. Introduction: INTRODUCTION: The EEG was monitored from 19 scalp electrodes which consisted of the standard parasagittal, temporal and midline leads of the International 10-20 system. EEG data were recorded on an This Week In system with simultaneous MPEG-4 digital video recording of patient behavior. EEG recording was in a monopolar montage with all electrodes referenced to FCz. Significant behavioral events were signaled by an event button, or putative electrical seizure events were detected by a computer program. All EEG data were reviewed in their entirety on a monitor with reconstruction of montages and adjustments of sensitivity and filtering. Simultaneous patient behavior was viewed on an adjacent monitor and correlated with the EEG. - Medications Active Medications: Atorvastatin Calcium (Lipitor*) 40 mg PO 2100 [facility] Last Admin: 04/14/17 21:57 Dose: 40 mg Chlorhexidine Gluconate (Peridex Mouth Wash 0.12%*) 15 ml TOPICAL Q4H [facility] Last Admin: 04/15/17 05:59 Dose: 15 ml Dextrose (D50w Syringe 50 Ml*) 25 gm IV PUSH ONCE PRN PRN Reason: FS < 60 Last Admin: 04/13/17 20:50 Dose: 25 gm Fosphenytoin Sodium (Cerebyx(*)) 100 mg IV SLOW PU TID [facility] Last Admin: 04/14/17 21:56 Dose: 100 mg Hydrocortisone Sodium Succinate (Solu-Cortef*) 100 mg IV Q8H [facility] Last Admin: 04/15/17 02:57 Dose: 100 mg Norepinephrine Bitartrate (Levophed 16 Mcg/Ml Premix Bag*) 4,000 mcg in 250 mls @ 18.75 mls/hr IV .INITIAL RATE JARRED PRN Reason: 5 MCG/MIN Last Admin: 04/15/17 03:26 Dose: 18.75 mls/hr Potassium Chloride/Sodium Chloride (Ns 0.9% W/ 40 Meq Kcl 1000 Ml*) 1,000 mls @ 500 mls/hr IV PER RATE JARRED Stop: 04/15/17 14:59 Last Admin: 04/14/17 15:40 Dose: 500 mls/hr Levetiracetam 500 mg/ (Levetiracetam) 105 mls @ 420 mls/hr IVPB Q12H JARRED Last Admin: 04/15/17 02:57 Dose: 420 mls/hr Propofol (Diprivan*) 100 mls @ 9.372 mls/hr IV .(Initial Rate) JARRED; 20 MCG/KG/ MIN PRN Reason: Protocol Last Admin: 04/15/17 03:26 Dose: 32.8 mls/hr Ceftriaxone Sodium 1,000 mg/ (Dextrose) 50 mls @ 200 mls/hr IVPB Q24H JARRED Last Admin: 04/14/17 17:27 Dose: 200 mls/hr Insulin Human Regular (Insulin Regular(*)) 0 - 8 units SUBCUT FS Q6 ICU JARRED PRN Reason: Protocol Last Admin: 04/15/17 06:00 Dose: Not Given Lorazepam (Ativan Inj*) 1 mg IV PUSH Q10M PRN PRN Reason: seizures Given 2mg IV at 08:30 on 04/14, 4mg IV at 17:30 on 04/14 Magnesium Oxide (Magox 400 Tab*) 400 mg PO QPM JARRED Last Admin: 04/14/17 17:15 Dose: 400 mg Potassium Chloride (Klor Con Er Tab*) 20 meq PO DAILY JARRED Last Admin: 04/14/17 11:27 Dose: Not Given The patient was loaded with fosphenytoin 1000mg at 09:48 on 04/14, then given an additional 400mg IV at 16:00 She had also received lacosamide 50mg IV at 06:08 on 04/14, prior to the start of the recording. - Description Background: At the onset of the recording, the background lacked the organization expected of the typical wake and sleeping backgrounds. There were no anterior-posterior voltage and frequency gradients nor posterior dominant rhythm. There was an interhemispheric asymmetry and neither hemisphere was normal, but there was a greater degree of dysfunction present over the right hemisphere. Over the left hemisphere, activity consisted of moderate amplitude, mixed frequency slowing with superimposed spindle-like waveforms. Over the right hemisphere, there was similar moderate amplitude, mixed frequency slowing but continuous epileptiform activity was noted to emanate from the right posterior quadrant, as further described below. There were some periods of arousal, denoted by increased muscle artifact, but continuous epileptiform activity continued rather unchanged. At approximately 1600 on 04/14, propofol infusion was initiated and titrated up over time to 80mcg/kg/min. With this, the EEG transitioned into a burst- suppression pattern around 18:15. Periods of suppression lasting up to 10 seconds were initially noted, interrupted by bursts of activity lasting 1 to 2 seconds. These bursts of mixed frequency activity were sometimes asymmetric, and bursts of activity over the right hemisphere continued to contain epileptiform activity maximal over the right centroparietal region. As the recording progressed, bursts of activity became longer, between 1 to 5 seconds, and suppressions shorter, lasting from 2 to 5 seconds. Intericatal Epileptiform Activity: At the onset of the recording, the patient was experiencing periodic lateralized discharges, as further described below. Once in burst suppression, the patient continued to experience epileptiform discharges during bursts of activity which were maximal at C4, P4 and exhibited a field to T4. Ictal Activity: At the onset of the recording, there was continuous, periodic lateralized discharges (PLDs) which were characterized by high voltage, spike, polyspike and slow wave components. These occurred at 1 to 2 Hz and each complex generally lasted 0.5 seconds. These were maximal at C4 and P4 with a field to T6 and O2. At times, there were brief runs of lower voltage, sharply contoured mixed frequency activity lasting up to 5 seconds. At times, these PLDs were interrupted by 1 to 2 seconds of diffuse voltage suppression. As propofol was added, discharges became lower in voltage and there were longer periods of diffuse voltage suppression between them. Eventually, the patient entered a burst-suppression pattern as described. - Impression Impression: This is an abnormal long-term monitoring session. At the beginning of the recording, the EEG was dominated by continuous periodic lateralized discharges (PLDs) over the right centroparietal region which had complex morphology and sometimes occurred in short runs lasting up to 5 seconds. The background otherwise lacked anterior to posterior voltage and frequency gradients and consisted of diffuse mixed frequency slowing, but retained some reactivity. These findings are consistent with non-convulsive status epilepticus emanating from the right centroparietal region. At approximately 18:15, after the initiation of propofol, the ictal activity ceased and the EEG demonstrated a burst-suppression pattern, but with continued epileptiform activity noted within bursts of activity over the right hemisphere. By the end of the recording, the EEG was in a light burst- suppression pattern, as described above. These findings are consistent with a severe, diffuse encephalopathy with continued increased epileptic potential over the right centroparietal region.
[2017-04-15 06:55] LABS: BUN/Creatinine Ratio 6.1 (8-20)
[2017-04-15] MEDS: Fosphenytoin(*) 100 MG/2 ML VIAL IV SLOW PU SCH ×4 (08:21→20:43)
[2017-04-15] MEDS ORDERED: D5W ONE (08:34)
[2017-04-15] MEDS ORDERED: FOSPHENYTOIN ONE (08:34)
--- NOTE | 2017-04-15 08:46 | RAD ---
HISTORY: OG tube placement COMPARISONS: April 14, 2017 VIEWS: 1: frontal portable view of the chest at 8:25 AM FINDINGS: LINES AND TUBES: An endotracheal tube is noted with the tip overlying the trachea between the clavicles and the kris. A gastric tube is noted, with the tip in the left upper quadrant in a prepyloric position.. CARDIOMEDIASTINAL SILHOUETTE: The cardiomediastinal silhouette is normal for portable technique. PLEURA: The costophrenic angles are sharp. No pleural abnormalities are noted. LUNG PARENCHYMA: The lung volumes are low. The lungs are clear accounting for the phase of respiration. ABDOMEN: The upper abdomen is clear. There is no subphrenic gas. BONES AND SOFT TISSUES: No bone or soft tissue abnormalities are noted. IMPRESSION: LINES AND TUBES ABOVE. LOW LUNG VOLUMES. NO ACTIVE CARDIOPULMONARY DISEASE.
[2017-04-15] MEDS ORDERED: NS IVPB ONE ×2 (09:23→10:00)
[2017-04-15] MEDS ORDERED: POTASSIUM PHOSPHATE IVPB ONE ×2 (09:23→10:00)
[2017-04-15] MEDS ORDERED: Potassium Phosphate IV* 30 MMOLE in NS 0.9% 250 ML* 250 ML IVPB ONE (10:00)
[2017-04-15] MEDS: Potassium Chloride LIQUID* 20 MEQ PACKET PO SCH (11:31)
[2017-04-15] MEDS ORDERED: Midazolam* 1 MG/ML 10 ML VIAL (10 MG) IV ONE (12:00)
--- NOTE | 2017-04-15 12:14 | PN ---
Progress Note - Progress Note Date of Service: 04/15/17 Note: CRITICAL CARE MEDICINE DATE: 04/15/17 TIME: 1115 SUBJECTIVE: Patient seen and examined. PHYSICAL EXAM: Vital Signs: Reviewed. 40% Neurologic: eeg with burst suppression. nonresponsive. HEENT: anicteric, perrl Cardiovascular: distant, S1, S2, no m appreciated Respiratory: coarse but clear Abdomen: obese, soft. nt Extremities: warm, no petechial signs. Access: picc LABS: Reviewed. IMAGING: Reviewed. MEDICATIONS: Reviewed. ASSESSMENT: 66 F Status epilepticus, partial complex Acute hypoxic resp failure Hypovolemic shock Acute thrombocytopenia - depakote related. PLAN: Neurologic: burst suppression. dilantin inc. on keppra. high dose propofol. trial benzos again today. may need davey. neuro following. time Cardiovascular: Hemodynamics are better. perfusing. bp soft and needing low dose levophed due to sedation now otherwise stable. vol status met to overloaded but maintained. Respiratory: jud vent well. allow trigger if able. protect. Gastrointestinal: tf continued. sup. Renal/Metabolic: stable. replete phos Infectious Disease: no signs of infection. dc abx. clinical follow. Hematology: on coumadin and f/u inr continued. plt rebounding off depakote. onc eval, but agree depakote the likely culpruit. Endocrine: stress dose steroids continued. Musculoskeletal: bedrest. turn and avoid breakdown Psych/Social: will updated daughter today Supportive and preventative care as ordered. SUP: H2 VTE prophylaxis: on coumadin Beaulieu catheter given critical illness, monitoring needs for accurate assessment of DANIKA and KDIGO criteria for critically ill patients and to avoid potential harms of urinary retention, skin breakdown/ulcers. Disposition: ICU Code Status: Full Critical Care Time: 45min will D/w Dr. Maurice Mejía,
[2017-04-15] MEDS: Midazolam PREMIX BAG 1 MG/ML* 100 MG/100 ML BAG IV SCH (12:50)
[2017-04-15] MEDS: LEVETIRACETAM 500 MG IV SCH ×2 (14:34→21:34)
[2017-04-15] MEDS ORDERED: cefTRIAXone* 1 GM in NS 0.9% 50 ML BAG IVPB SCH (17:00)
[2017-04-15] MEDS: Famotidine SUSP* 40 MG/5 ML ORAL.SYRIN G TUBE SCH (17:30)
[2017-04-15] MEDS: Magnesium Oxide TAB* 400 MG PO SCH (18:27)
--- NOTE | 2017-04-15 19:29 | CONS ---
NEUROLOGY FOLLOWUP CONSULT: DATE OF FOLLOWUP: 04/15/17 LOCATION: She is in ICU, bed 6. LOADING DOCK HAND: Dr. Mejía. CHIEF COMPLAINT: Complex partial status epilepticus. INTERVAL HISTORY: Since yesterday, Ms. Madhav Pena is maintained on propofol with dose escalated. She has developed a burst suppression pattern on her EEG. She still has epileptiform discharges from the right hemisphere. There have been no clinical events. Her blood pressures have been fairly stable and Levophed has been able to be decreased. She has periodic epileptiform discharges as well as occasional bursts in between PLEDs. MEDICATIONS: Currently consist of: 1. Fosphenytoin 150 mg IV q.8 hours. 2. Keppra 500 mg IV q.8 hours. 3. Propofol. 4. Atorvastatin Her antibiotics have been discontinued. PHYSICAL EXAM: Her blood pressures are running about 90 to 100 systolic/60 to 70 diastolic, pretty consistently. Temperature remains low at 96.4 by Beaulieu, heart rates in the 70s and sinus on the monitor. She is intubated. She is completely unresponsive. There is no facial twitching. Eyes are mid position. Pupils react to light. She is flaccid. She does not grimace or withdraw to pain in the extremities. LABORATORY DATA: Includes CBC today with a stable hemoglobin of 12.5, platelet count has come up to 102,000, white blood cells 9.2. Phenytoin level this morning 8.9. Chemistry is notable for a sodium of 130. IMPRESSION: Complex partial status epilepticus. PLAN: To keep her on burst suppression for 24 hours or so. She was just given some Versed and there was a marked decrease in bursts and interictal discharges and so in discussion with Dr. Mejía, we agreed to start a Versed drip. We will reevaluate tomorrow and check her phenytoin levels again which the doses have been adjusted and see if it would be possible to wean her off propofol and Versed without recurrence of seizures. I discussed the plan with her who is present. [id number]/[facility] #: [id number] [facility]
[2017-04-15] MEDS: Atorvastatin* 40 MG TAB PO SCH (20:53)
[2017-04-16] MEDS: Chlorhexidine MOUTHWASH 0.12%* 15 ML UDC TOPICAL SCH ×7 (00:10→23:42)
[2017-04-16] MEDS: Propofol* 100 ML IV SCH ×7 (00:10→23:42)
[2017-04-16] MEDS: Insulin REGULAR(*) 1 UNITS UNIT SUBCUT SCH ×4 (00:31→17:56)
[2017-04-16] MEDS: Hydrocortisone INJ* 100 MG VIAL IV SCH (04:47)
[2017-04-16] MEDS: Midazolam PREMIX BAG 1 MG/ML* 100 MG/100 ML BAG IV SCH (05:54)
[2017-04-16] MEDS: LEVETIRACETAM 500 MG IV SCH ×2 (05:54→14:29)
[2017-04-16] MEDS: Fosphenytoin(*) 100 MG/2 ML VIAL IV SLOW PU SCH ×3 (08:25→21:11)
[2017-04-16 08:35] LABS: Hematocrit 33 % (35-47); Hemoglobin 12.3 g/dl (12.0-16.0); Mean Corpuscular HGB Conc 37 g/dl (31-36); Mean Corpuscular Hemoglobin 34 pg (27-31); Mean Corpuscular Volume 92 fL (80-97); Mean Platelet Volume 11 um3 (7.4-10.4); Red Blood Count 3.59 10^6/ul (4.0-5.4); Red Cell Distribution Width 14 % (10.5-15); Venous Bicarbonate HCO3 20.8 mmol/L (24-28); White Blood Count 8.5 10^3/ul (3.5-10.8)
[2017-04-16 08:39] LABS: Comments Flag Yes
[2017-04-16] MEDS: Potassium Chloride LIQUID* 20 MEQ PACKET PO SCH (08:46)
[2017-04-16 09:12] LABS: BUN/Creatinine Ratio 14.8 (8-20); Blood Urea Nitrogen 9 mg/dL (6-24); CO2 Carbon Dioxide 19 mmol/L (22-32); Calcium 7.2 mg/dL (8.6-10.3); Chloride 97 mmol/L (101-111); EGFR African American 126.2 (>60); EGFR Non-African American 98.1 (>60); Glucose 205 mg/dL (70-100); Sodium 123 mmol/L (133-145)
[2017-04-16 09:13] LABS: Anion Gap 7 mmol/L (2-11)
[2017-04-16 10:22] LABS: Magnesium 1.8 mg/dL (1.9-2.7)
[2017-04-16] MEDS ORDERED: Magnesium Sulf 4 GM/100 ML IV* 4,000 MG/100 ML BAG IVPB ONE (10:23)
[2017-04-16] MEDS: predniSONE TAB* 20 MG G TUBE SCH (10:49)
[2017-04-16] MEDS: Famotidine SUSP* 40 MG/5 ML ORAL.SYRIN G TUBE SCH (10:49)
--- NOTE | 2017-04-16 11:03 | PN ---
Progress Note - Progress Note Date of Service: 04/16/17 Note: CRITICAL CARE MEDICINE DATE: 04/16/17 TIME: 915 SUBJECTIVE: Patient seen and examined. PHYSICAL EXAM: Vital Signs: Reviewed. 40% Neurologic: eeg flat this am. coma. nonresponsive. HEENT: anicteric, ett in place Cardiovascular: distant, S1, S2, no m appreciated Respiratory: coarse but clear; sync with vent Abdomen: obese, soft. nt Extremities: warm, dep edema Access: picc LABS: Reviewed. IMAGING: Reviewed. MEDICATIONS: Reviewed. ASSESSMENT: 66 F Status epilepticus, partial complex Acute hypoxic resp failure Hypovolemic shock Acute thrombocytopenia - depakote related. PLAN: Neurologic: hopefully adequete suppression and start dec propofol incrementally today. continued AEDs with levels pending. Versed seems to have benefited and will leave gtt going and test with dec propofol. if profol level becomes better then we can come down on versed gtt after while slwo with prop. continued cEEG. time Cardiovascular: Hemodynamics maintained. less Uout. levophed as needed. Respiratory: jud vent well but sync of course and no trigger. hopefully remedy with time. vent protection. Gastrointestinal: tf continued. sup. Renal/Metabolic: stable. replete phos, mg; need to f/u Na later as likely just dropping due to need for D5W piggy backs, but now off abx and others. less steroids. see if she wants to just mobilize water with lasix vs need for NaCl repletion as we don't need her going much lower. Infectious Disease: no signs of infection. clinical follow. Hematology: on coumadin and f/u inr continued. plt rebounding off depakote. onc eval, but agree depakote the likely culpruit. Endocrine: stress dose steroids can be tapered Musculoskeletal: bedrest. turn and avoid breakdown Psych/Social: will update daughter Supportive and preventative care as ordered. SUP: H2 VTE prophylaxis: lovenox dose today and resume daily coumadin Beaulieu catheter given critical illness, monitoring needs for accurate assessment of DANIKA and KDIGO criteria for critically ill patients and to avoid potential harms of urinary retention, skin breakdown/ulcers. Disposition: ICU Code Status: Full Critical Care Time: 40min will D/w Dr. Maurice Mejía DO
[2017-04-16] MEDS ORDERED: Furosemide IV* 10 MG/ML VIAL (40 MG) IV SLOW PU ONE (11:05)
[2017-04-16] MEDS ORDERED: Enoxaparin(*) 80 MG/0.8 ML SYR SUBCUT ONE (12:00)
[2017-04-16] MEDS ORDERED: Warfarin TAB(*) 7.5 MG PO ONE (12:00)
[2017-04-16] MEDS ORDERED: Insulin GLARGINE(*) 1 UNITS UNIT SUBCUT ONE (12:00)
--- NOTE | 2017-04-16 13:14 | EEG ---
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 In March, she presented with new onset seizures and was treated with Depakote. She presented to the ER on 04/13 in focal status epilepticus with twitching of the left face and arm in the setting of being late with her morning dose of Depakote. She was also found to by hypotensive with laboratory abnormalities such as thrombocytopenia and hyponatremia. She continued to be unresponsive so EEG was requested to evaluate for non-convulsive seizures and follow the course of treatment. She was found to be in status and EEG is continued to follow the course of treatment. Introduction: INTRODUCTION: The EEG was monitored from 19 scalp electrodes which consisted of the standard parasagittal, temporal and midline leads of the International 10-20 system. EEG data were recorded on an [employer] system with simultaneous MPEG-4 digital video recording of patient behavior. EEG recording was in a monopolar montage with all electrodes referenced to FCz. Significant behavioral events were signaled by an event button, or putative electrical seizure events were detected by a computer program. All EEG data were reviewed in their entirety on a monitor with reconstruction of montages and adjustments of sensitivity and filtering. Simultaneous patient behavior was viewed on an adjacent monitor and correlated with the EEG. - Medications Active Medications: Atorvastatin Calcium (Lipitor*) 40 mg PO 2100 [facility] Last Admin: 04/15/17 20:53 Dose: 40 mg Chlorhexidine Gluconate (Peridex Mouth Wash 0.12%*) 15 ml TOPICAL Q4H [facility] Last Admin: 04/16/17 08:25 Dose: 15 ml Dextrose (D50w Syringe 50 Ml*) 25 gm IV PUSH ONCE PRN PRN Reason: FS < 60 Last Admin: 04/13/17 20:50 Dose: 25 gm Famotidine (Pepcid Susp*) 20 mg G TUBE DAILY [facility] Last Admin: 04/16/17 10:49 Dose: 20 mg Fosphenytoin Sodium (Cerebyx(*)) 150 mg IV SLOW PU TID [facility] Last Admin: 04/16/17 08:25 Dose: 150 mg Norepinephrine Bitartrate (Levophed 16 Mcg/Ml Premix Bag*) 4,000 mcg in 250 mls @ 18.75 mls/hr IV .INITIAL RATE JARRED PRN Reason: 5 MCG/MIN Last Admin: 04/15/17 21:39 Dose: 18.75 mls/hr Propofol (Diprivan*) 100 mls @ 9.372 mls/hr IV .(Initial Rate) JARRED; 20 MCG/KG/ MIN PRN Reason: Protocol Last Admin: 04/16/17 11:38 Dose: 9.372 mls/hr Levetiracetam (Keppra Iv Premix*) 100 mls @ 400 mls/hr IV Q8HR JARRED Last Admin: 04/16/17 05:54 Dose: 400 mls/hr Midazolam HCl (Versed Premix Bag 1 Mg/Ml*) 100 mg in 100 mls @ 5 mls/hr IV .Q24HR JARRED PRN Reason: 5 MG/HR Last Admin: 04/16/17 05:54 Dose: 5 mls/hr Magnesium Sulfate (Magnesium Sulf 4 Gm/100 Ml Iv*) 4,000 mg in 100 mls @ 33.333 mls/hr IVPB ONCE ONE Stop: 04/16/17 13:22 Last Admin: 04/16/17 10:48 Dose: 33.333 mls/hr Insulin Human Regular (Insulin Regular(*)) 0 - 8 units SUBCUT FS Q6 ICU JARRED PRN Reason: Protocol Magnesium Oxide (Magox 400 Tab*) 400 mg PO QPM JARRED Last Admin: 04/15/17 18:27 Dose: 400 mg Potassium Chloride (Klor-Con Liquid*) 20 meq PO DAILY JARRED Last Admin: 04/16/17 08:46 Dose: 20 meq Prednisone (Deltasone Tab*) 20 mg G TUBE DAILY JARRED Last Admin: 04/16/17 10:49 Dose: 20 mg - Description Background: At the onset of the recording, the patient was in a light burst-suppression pattern characterized by bursts of moderate voltage, mixed frequency activity lasting 1 to 5 seconds interrupted by periods of suppression lasting between 1 and 5 seconds. At times, bursts of activity were seen to occur asymmetrically over the right and left hemispheres. In addition, bursts over the right hemisphere were intermixed with spike and polyspike epileptiform activity maximal at C4 and P4. As propofol was increased and midazolam drip was added (the patient received a 5mg dose IV at around 12:20pm), bursts of activity became lower in amplitude and shorter in duration but continued to otherwise retain the characteristics described above. Interburst intervals could last up to 20 seconds at times but the depth of burst suppression was variable over the 24 hours. Intericatal Epileptiform Activity: During bursts of activity, there was intermixed epileptiform activity characterized by spike and polyspike waveforms of higher amplitude than the rest of the background activity, with associated slow waves. These were maximal at C4 and P4 and demonstrated a field to T4. Ictal Activity: None - Impression Impression: This is an abnormal long-term monitoring session. The background is characterized by a burst-suppression patter, which was initially relatively light at the beginning of the recording but became more profound as the recording progressed, particularly after 1200 or 1300. Intermixed within bursts of activity was epileptiform activity maximal over the right centroparietal region. These findings are suggestive of a severe, diffuse encephalopathy with superimposed continued increased epileptic potential in the right centroparietal region. There were no seizures during this recording.
[2017-04-16] MEDS ORDERED: cefTRIAXone VIAL(*) 1,000 MG in D5W 50 ML BAG* 50 ML IVPB SCH (17:00)
[2017-04-16 17:15] LABS: BUN/Creatinine Ratio 13.7 (8-20); Calcium 7.5 mg/dL (8.6-10.3); EGFR African American 102.6 (>60); EGFR Non-African American 79.8 (>60); Potassium 3.7 mmol/L (3.5-5.0)
[2017-04-16 17:40] LABS: Phenytoin 13.9 mcg/mL (10-20)
[2017-04-16] MEDS: Magnesium Oxide TAB* 400 MG PO SCH (17:56)
--- NOTE | 2017-04-16 20:08 | CONS ---
NEUROLOGY FOLLOWUP NOTE: DATE OF FOLLOWUP: 04/16/17 LOCATION: She is in ICU, bed 6. KINESIOLOGY INTERNSHIP: Dr. Mejía. CHIEF COMPLAINT: Nonconvulsive status epilepticus. INTERVAL HISTORY: Since yesterday, Ms. Madhav Pena has remained in a propofol and midazolam-induced coma. Her EEGs remained in a burst suppression pattern through the extended recording. She has not had any clinical events. Her propofol has been moving down to 40 mcg and midazolam remains at 5 mg per hour. Medications also include atorvastatin 40 mg per NG daily, famotidine 20 mg G- tube daily, Cerebyx 150 mg IV q.8 hours, Keppra 500 mg IV q.8 hours. PHYSICAL EXAM: She is intubated, has NG tube and on continuous EEG monitoring. Temperature remains low at 95.2 Beaulieu, blood pressures up to 140/90, heart rate is in the 70s and in sinus on the monitor. She does not trigger the vent and the respiratory rate is 12. Oxygen sat is 98%. Neurologically, pupils react weakly from 2.5 to 2 mm. Eyes are mid position. There are no spontaneous eye movements. I did not test vestibulo-ocular due to her EEG and other apparatus. She does not have corneal reflexes or nasal tickle responses. There is no facial grimacing to nail bed pressure in any of the limbs. All limbs are flaccid. There is no response to nail bed pressure. LABORATORY DATA: Includes CBC from today notable for stable CBC. Platelet counts up to 129,000. Chemistries this morning is notable for sodium of 123, potassium had to be repeated and came back at 4.2, magnesium low at 1.8, glucose 205. 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 Hopefully, tomorrow we can back up on the anesthetics and see if she recovers without going back into status. I spoke with the ship laborer to try to trace down phenytoin level ordered for this morning and which site it was collected. It is not clear to me why it was not done, but he said they will add it on to the morning bloods that were drawn. Also written orders for phenytoin level for tomorrow. Her renal function remains normal, so I am going to go ahead and increase her levetiracetam empirically as the level from 04/15/17 is not back yet. We will reevaluate in the morning. [id number]/[facility] #: [id number] [facility]
[2017-04-16] MEDS: Atorvastatin* 40 MG TAB PO SCH (21:11)
[2017-04-16] MEDS: levETIRAcetam IV* 750 MG in NS 0.9% 100 ML* 100 ML IVPB SCH (21:17)
[2017-04-16] MEDS: Norepinephrine 16MCG/ML IVPRE* 4,000 MCG/250 ML BAG IV SCH (23:42)
[2017-04-17] MEDS: Insulin REGULAR(*) 1 UNITS UNIT SUBCUT SCH ×4 (00:14→17:38)
[2017-04-17] MEDS: Midazolam PREMIX BAG 1 MG/ML* 100 MG/100 ML BAG IV SCH ×2 (01:20→15:46)
[2017-04-17] MEDS: levETIRAcetam IV* 750 MG in NS 0.9% 100 ML* 100 ML IVPB SCH ×2 (05:11→15:32)
[2017-04-17] MEDS: Chlorhexidine MOUTHWASH 0.12%* 15 ML UDC TOPICAL SCH ×6 (05:11→23:43)
[2017-04-17 05:47] LABS: Hematocrit 34 % (35-47); Hemoglobin 11.4 g/dl (12.0-16.0); Mean Corpuscular HGB Conc 34 g/dl (31-36); Mean Corpuscular Hemoglobin 31 pg (27-31); Mean Corpuscular Volume 91 fL (80-97); Mean Platelet Volume 9 um3 (7.4-10.4); Red Blood Count 3.68 10^6/ul (4.0-5.4); Red Cell Distribution Width 14 % (10.5-15); White Blood Count 11.3 10^3/ul (3.5-10.8)
[2017-04-17] MEDS: Propofol* 100 ML IV SCH ×3 (05:47→23:03)
[2017-04-17 05:59] LABS: Albumin 2.6 g/dL (3.2-5.2); BUN/Creatinine Ratio 23.1 (8-20); Calcium 7.8 mg/dL (8.6-10.3); EGFR African American 117.3 (>60); EGFR Non-African American 91.2 (>60); Globulin 1.9 g/dL (2-4); Magnesium 2.3 mg/dL (1.9-2.7); Phenytoin 18.1 mcg/mL (10-20); Phosphorus 2.1 mg/dL (2.5-5.0); Potassium 3.6 mmol/L (3.5-5.0); Total Bilirubin 0.2 mg/dL (0.2-1.0); Total Protein 4.5 g/dL (6.4-8.9)
[2017-04-17] MEDS: Potassium Chloride LIQUID* 20 MEQ PACKET PO SCH (08:38)
[2017-04-17] MEDS: predniSONE TAB* 20 MG G TUBE SCH (08:38)
[2017-04-17] MEDS: Famotidine SUSP* 40 MG/5 ML ORAL.SYRIN G TUBE SCH (08:38)
[2017-04-17] MEDS: Fosphenytoin(*) 100 MG/2 ML VIAL IV SLOW PU SCH ×3 (08:39→21:33)
--- NOTE | 2017-04-17 10:06 | EEG ---
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 In March, she presented with new onset seizures and was treated with Depakote. She presented to the ER on 04/13 in focal status epilepticus with twitching of the left face and arm in the setting of being late with her morning dose of Depakote. She was also found to by hypotensive with laboratory abnormalities such as thrombocytopenia and hyponatremia. She continued to be unresponsive so EEG was requested to evaluate for non-convulsive seizures and follow the course of treatment. She was found to be in status and EEG is continued to follow the course of treatment. Introduction: INTRODUCTION: The EEG was monitored from 19 scalp electrodes which consisted of the standard parasagittal, temporal and midline leads of the International 10-20 system. EEG data were recorded on an [employer] system with simultaneous MPEG-4 digital video recording of patient behavior. EEG recording was in a monopolar montage with all electrodes referenced to FCz. Significant behavioral events were signaled by an event button, or putative electrical seizure events were detected by a computer program. All EEG data were reviewed in their entirety on a monitor with reconstruction of montages and adjustments of sensitivity and filtering. Simultaneous patient behavior was viewed on an adjacent monitor and correlated with the EEG. - Medications Active Medications: Atorvastatin Calcium (Lipitor*) 40 mg PO 2100 [facility] Last Admin: 04/16/17 21:11 Dose: 40 mg Chlorhexidine Gluconate (Peridex Mouth Wash 0.12%*) 15 ml TOPICAL Q4H [facility] Last Admin: 04/17/17 08:38 Dose: 15 ml Dextrose (D50w Syringe 50 Ml*) 25 gm IV PUSH ONCE PRN PRN Reason: FS < 60 Last Admin: 04/13/17 20:50 Dose: 25 gm Famotidine (Pepcid Susp*) 20 mg G TUBE DAILY [facility] Last Admin: 04/17/17 08:38 Dose: 20 mg Fosphenytoin Sodium (Cerebyx(*)) 150 mg IV SLOW PU TID [facility] Last Admin: 04/17/17 08:39 Dose: 150 mg Norepinephrine Bitartrate (Levophed 16 Mcg/Ml Premix Bag*) 4,000 mcg in 250 mls @ 18.75 mls/hr IV .INITIAL RATE JARRED PRN Reason: 5 MCG/MIN Last Admin: 04/16/17 23:42 Dose: 18.75 mls/hr Propofol (Diprivan*) 100 mls @ 9.372 mls/hr IV .(Initial Rate) JARRED; 20 MCG/KG/ MIN PRN Reason: Protocol Last Admin: 04/17/17 05:47 Dose: 9.372 mls/hr Midazolam HCl (Versed Premix Bag 1 Mg/Ml*) 100 mg in 100 mls @ 5 mls/hr IV .Q24HR JARRED PRN Reason: 5 MG/HR Last Admin: 04/17/17 01:20 Dose: 5 mls/hr Levetiracetam 750 mg/ Sodium (Chloride) 107.5 mls @ 420 mls/hr IVPB Q8HR JARRED Last Admin: 04/17/17 05:11 Dose: 420 mls/hr Insulin Human Regular (Insulin Regular(*)) 0 - 8 units SUBCUT FS Q6 ICU JARRED PRN Reason: Protocol Last Admin: 04/17/17 05:43 Dose: Not Given Magnesium Oxide (Magox 400 Tab*) 400 mg PO QPM JARRED Last Admin: 04/16/17 17:56 Dose: 400 mg Potassium Chloride (Klor-Con Liquid*) 20 meq PO DAILY [facility] Last Admin: 04/17/17 08:38 Dose: 20 meq Prednisone (Deltasone Tab*) 20 mg G TUBE DAILY [facility] Last Admin: 04/17/17 08:38 Dose: 20 mg Propofol drip was at 40mcg/kg/min at the start of the recording and was reduced to 30mcg/kg/min sometime between 2200 and 0600 per the nursing flowsheets. - Description Background: At the onset of the recording, the patient was in a deep burst-suppression pattern characterized by bursts of moderate voltage, mixed frequency activity lasting about 1 to 3 seconds interrupted by periods of suppression lasting 10 seconds on average, but some periods up to 60+ seconds were observed. At times, bursts of activity were seen to occur asymmetrically over the right and left hemispheres. In addition, bursts over the right hemisphere were frequently intermixed with spike and polyspike epileptiform activity maximal at C4 and P4. The depth of burst-suppression was variable over the 24 hours, but in general, as the recording progressed, the depth of suppression lessened. By noon, the interburst interval was 5 seconds, on average, with propofol at 40mcg/kg/min and Versed at 5mg/hr. In addition, bursts of activity lengthened to between 1 and 5 seconds and epileptiform activity was more prominent during these bursts. By 04:45 on 04/17, the background was gradually becoming more continuous, consisting of mixed frequency theta and delta range slowing with superimposed beta range frequencies frontocentrally which were better represented on the left. Epileptiform activity was often higher in voltage with discrete spike, polyspike and slow wave discharges which varied in maximal expression between C4 and P4. At times, these occurred at 1Hz for up to 12 seconds. At times, continuous background activity was observed for 45+ seconds, with periods of suppression lasting between 1 and 3 seconds. Frequency of epileptiform activity was highly variable, however, and there were times of continuous background activity devoid of epileptiform activity (e.g. 06:06:42 on 04/17), but this was more rarely seen. Intericatal Epileptiform Activity: During bursts of activity, as described above, there was intermixed epileptiform activity characterized by spike and polyspike waveforms of higher amplitude than the rest of the background activity, with associated slow waves. These were maximal at C4 and P4, with shifting predominance, and demonstrated a field to T4. At times, these discharges occurred at 1 to 2 Hz for up to 10 seconds. Ictal Activity: No clear ictal patterns or evolution of discharges - Impression Impression: This is an abnormal long-term monitoring session. The background is characterized by a burst-suppression pattern, which was initially deep at the beginning of the recording but became export administrator as the recording progressed. After 04:45, there were periods of relatively continuous background with only brief periods of suppression. Intermixed within bursts of activity was epileptiform activity maximal over the right centroparietal region , which at times exhibited a periodicity of 1 to 2 Hz, but no clear evolution in terms of frequency or spatial location. These findings are suggestive of a severe, diffuse encephalopathy with superimposed continued increased epileptic potential in the right centroparietal region. As burst-suppression lessened, a greater degree of epileptiform activity was noted, but there were no clear seizures during this recording.
[2017-04-17] MEDS ORDERED: Enoxaparin(*) 80 MG/0.8 ML SYR SUBCUT ONE (12:00)
--- NOTE | 2017-04-17 12:02 | PN ---
Progress Note - Progress Note Date of Service: 04/17/17 Note: CRITICAL CARE MEDICINE DATE: 04/17/17 TIME: 945 SUBJECTIVE: Patient seen and examined. PHYSICAL EXAM: Vital Signs: Reviewed. 40% Neurologic: eeg with burset suppression to my eye and a bit more frequent. coma. nonresponsive. pupils sluggish. HEENT: anicteric, ett in place Cardiovascular: distant, S1, S2, no m appreciated Respiratory: coarse and R rhonchi; sync with vent Abdomen: obese, soft. nt Extremities: warm, dep edema inc Access: picc LABS: Reviewed. IMAGING: Reviewed. MEDICATIONS: Reviewed. ASSESSMENT: 66 F Status epilepticus, partial complex Acute hypoxic resp failure Hypovolemic shock Acute thrombocytopenia - depakote related. PLAN: Neurologic: holding without seizures but potentials seem more often. Need to adjust meds again and try to lighten sedation to promote more wakeful response and avoid inducing seizure which she hasn't had. inc versed and then come down and off propofol. see if she can reach spont breathing. if seizure induced would consider phenobarb. Neuro following. cEEG. time Cardiovascular: Hemodynamics maintained but may continue to need low dose levo. need to see about wakefulness. Respiratory: jud vent but decruiting some and may need to push peep or aprv but would rather induced some spont trigger. see today. Gastrointestinal: tf continued. sup. Renal/Metabolic: stable. Na better. follow Infectious Disease: no signs of infection. Hematology: on coumadin and f/u inr continued. lovenox again today as vte risk high and Coumadin reloading. Endocrine: stress dose steroid taper Musculoskeletal: bedrest. turn and avoid breakdown Psych/Social: will update daughter Supportive and preventative care as ordered. SUP: H2 VTE prophylaxis: lovenox dose today and resume daily coumadin Beaulieu catheter given critical illness, monitoring needs for accurate assessment of DANIKA and KDIGO criteria for critically ill patients and to avoid potential harms of urinary retention, skin breakdown/ulcers. Disposition: ICU Code Status: Full Critical Care Time: 35min will D/w Dr. Maurice Mejía,
[2017-04-17] MEDS ORDERED: NS 0.9% 100 ML* 100 ML ONE (15:18)
[2017-04-17] MEDS ORDERED: PHENOBARBITAL IVPB ONE (15:30)
[2017-04-17] MEDS ORDERED: NS 0.9% IVPB ONE (15:30)
[2017-04-17] MEDS: Norepinephrine 16MCG/ML IVPRE* 4,000 MCG/250 ML BAG IV SCH (15:37)
[2017-04-17] MEDS: levETIRAcetam IV* 1,000 MG in NS 0.9% 100 ML* 100 ML IVPB SCH ×2 (17:00→21:33)
[2017-04-17] MEDS ORDERED: Warfarin TAB(*) 7.5 MG PO ONE (17:00)
[2017-04-17] MEDS: Magnesium Oxide TAB* 400 MG PO SCH (17:30)
--- NOTE | 2017-04-17 17:47 | CONS ---
NEUROLOGY FOLLOWUP NOTE: DATE OF CONSULT: 04/17/17 HOSPITALIST: Dr. Mejía. CHIEF COMPLAINT: Nonconvulsive status epilepticus. INTERVAL HISTORY: Since yesterday, Mrs. Madhav Tavarez has not had any movement or clinical seizures. She remained in burst suppression through the night on propofol, midazolam, levetiracetam, and phenytoin. MEDICATIONS: Reviewed. In addition to above, she is on: 1. Famotidine 20 mg NG-tube daily. 2. Magnesium oxide 400 mg per NG daily. 3. Coumadin which has fluctuated in dose and today she received 7.5 mg. 4. Prednisone 20 mg per NG daily. PHYSICAL EXAM: On exam, she remains somewhat hypothermic, 97.5 per Beaulieu probe. Blood pressure is running about 110 to 120 systolic/70 to 76 diastolic. She remains not triggering the vent at a rate of 12. Oxygen saturation is 100% on 30% FiO2. Heart tones are present. There is no spontaneous movements. Pupils react from about 3 to 2.5 mm. Eyes are mid position. I did not attempt vestibuloocular reflexes. There are no corneal reflexes or nasal tickle response. There is no response to deep pain in the nail beds in all limbs. DIAGNOSTIC STUDIES/LAB DATA: Notable for phenytoin level of 18.1, it was 13.9 yesterday. Her levetiracetam level came back from 04/15/17 at 14.0, she was on 500 mg q.8 hours at that time and is now on 750 q.8. Other laboratory data notable for chemistry today, basic metabolic profile notable for glucose of 131, calcium a little low at 7.8 and phosphorus at 2.1. Liver enzymes remain normal and albumin is low at 2.6. CBC notable for spike in white blood cell count at 11.3 after receiving steroids, hemoglobin is down a little bit at 11.4 and platelet count remained stable at 129,000. IMPRESSION: Nonconvulsive status epilepticus. I observed her multiple times today. A little while ago, at about 1530 hours, propofol was tapered down and she started to have epileptiform discharges again. Propofol was restarted without bolus and she is now at 40 mcg. I have spoken with Dr. Mejía and we have agreed to bolus her with phenobarbital at this point. I will check levels tomorrow. I will increase her Keppra to 1000 mg q.8 hours. Epilepsy monitoring will be continued and tomorrow we will see again if we are able to taper her off propofol and ultimately midazolam. I have updated her a couple of times today, he has been present throughout the day. ICU time in direct patient care over multiple visits today was approximately 45 minutes. [id number]/[facility] #: [id number] LOREN
[2017-04-17] MEDS: Atorvastatin* 40 MG TAB PO SCH (21:32)
[2017-04-17] MEDS: Potassium & Sodium Phos 250MG* = 1 PACKET G TUBE SCH (21:32)
[2017-04-18] MEDS: Insulin REGULAR(*) 1 UNITS UNIT SUBCUT SCH ×4 (00:27→18:03)
[2017-04-18] MEDS: Propofol* 100 ML IV SCH ×3 (01:35→13:54)
[2017-04-18] MEDS: Midazolam PREMIX BAG 1 MG/ML* 100 MG/100 ML BAG IV SCH ×3 (01:35→22:12)
[2017-04-18] MEDS: Norepinephrine 16MCG/ML IVPRE* 4,000 MCG/250 ML BAG IV SCH ×2 (04:11→18:04)
[2017-04-18] MEDS: Chlorhexidine MOUTHWASH 0.12%* 15 ML UDC TOPICAL SCH ×5 (05:23→20:16)
[2017-04-18] MEDS: levETIRAcetam IV* 1,000 MG in NS 0.9% 100 ML* 100 ML IVPB SCH ×3 (05:23→22:12)
[2017-04-18 06:26] LABS: Venous Bicarbonate HCO3 25.4 mmol/L (24-28)
[2017-04-18 06:34] LABS: Hematocrit 31 % (35-47); Hemoglobin 10.9 g/dl (12.0-16.0); Mean Corpuscular HGB Conc 35 g/dl (31-36); Mean Corpuscular Hemoglobin 33 pg (27-31); Mean Corpuscular Volume 93 fL (80-97); Mean Platelet Volume 9 um3 (7.4-10.4); Red Blood Count 3.34 10^6/ul (4.0-5.4); Red Cell Distribution Width 15 % (10.5-15); White Blood Count 10.4 10^3/ul (3.5-10.8)
[2017-04-18 06:45] LABS: BUN/Creatinine Ratio 39.4 (8-20); Blood Urea Nitrogen 26 mg/dL (6-24); CO2 Carbon Dioxide 24 mmol/L (22-32); Calcium 7.1 mg/dL (8.6-10.3); Chloride 106 mmol/L (101-111); EGFR African American 115.2 (>60); EGFR Non-African American 89.6 (>60); Glucose 105 mg/dL (70-100); Phosphorus 2.7 mg/dL (2.5-5.0); Sodium 132 mmol/L (133-145)
[2017-04-18 07:03] LABS: Triglycerides 1273 mg/dL
[2017-04-18 07:04] LABS: Anion Gap 2 mmol/L (2-11)
--- NOTE | 2017-04-18 08:12 | EEG ---
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 In March, she presented with new onset seizures and was treated with Depakote. She presented to the ER on 04/13 in focal status epilepticus with twitching of the left face and arm in the setting of being late with her morning dose of Depakote. She was also found to by hypotensive with laboratory abnormalities such as thrombocytopenia and hyponatremia. She continued to be unresponsive so EEG was requested to evaluate for non-convulsive seizures and follow the course of treatment. She was found to be in status and EEG is continued to follow the course of treatment. Introduction: INTRODUCTION: The EEG was monitored from 19 scalp electrodes which consisted of the standard parasagittal, temporal and midline leads of the International 10-20 system. EEG data were recorded on an UCAN system with simultaneous MPEG-4 digital video recording of patient behavior. EEG recording was in a monopolar montage with all electrodes referenced to FCz. Significant behavioral events were signaled by an event button, or putative electrical seizure events were detected by a computer program. All EEG data were reviewed in their entirety on a monitor with reconstruction of montages and adjustments of sensitivity and filtering. Simultaneous patient behavior was viewed on an adjacent monitor and correlated with the EEG. - Medications Active Medications: Atorvastatin Calcium (Lipitor*) 40 mg PO 2100 [facility] Last Admin: 04/17/17 21:32 Dose: 40 mg Chlorhexidine Gluconate (Peridex Mouth Wash 0.12%*) 15 ml TOPICAL Q4H [facility] Last Admin: 04/18/17 05:23 Dose: 15 ml Dextrose (D50w Syringe 50 Ml*) 25 gm IV PUSH ONCE PRN PRN Reason: FS < 60 Last Admin: 04/13/17 20:50 Dose: 25 gm Famotidine (Pepcid Susp*) 20 mg G TUBE DAILY [facility] Last Admin: 04/17/17 08:38 Dose: 20 mg Fosphenytoin Sodium (Cerebyx(*)) 150 mg IV SLOW PU TID [facility] Last Admin: 04/17/17 21:33 Dose: 150 mg Norepinephrine Bitartrate (Levophed 16 Mcg/Ml Premix Bag*) 4,000 mcg in 250 mls @ 18.75 mls/hr IV .INITIAL RATE JARRED PRN Reason: 5 MCG/MIN Last Admin: 04/18/17 04:11 Dose: 18.75 mls/hr Propofol (Diprivan*) 100 mls @ 9.372 mls/hr IV .(Initial Rate) JARRED; 20 MCG/KG/ MIN PRN Reason: Protocol Last Admin: 04/18/17 01:35 Dose: 9.372 mls/hr Midazolam HCl (Versed Premix Bag 1 Mg/Ml*) 100 mg in 100 mls @ 10 mls/hr IV .Q24HR JARRED PRN Reason: 10 MG/HR Last Admin: 04/18/17 01:35 Dose: 10 mls/hr Levetiracetam 1,000 mg/ Sodium (Chloride) 110 mls @ 420 mls/hr IVPB Q8HR [facility] Last Admin: 04/18/17 05:23 Dose: 420 mls/hr Insulin Human Regular (Insulin Regular(*)) 0 - 8 units SUBCUT FS Q6 ICU JARRED PRN Reason: Protocol Last Admin: 04/18/17 06:53 Dose: Not Given Magnesium Oxide (Magox 400 Tab*) 400 mg PO QPM [facility] Last Admin: 04/17/17 17:30 Dose: 400 mg Pharmacy Profile Note (Coumadin Daily Reminder*) 1 note FOLLOW UP 1700 [facility] Last Admin: 04/17/17 17:30 Dose: 1 note Potassium Chloride (Klor-Con Liquid*) 20 meq PO DAILY [facility] Last Admin: 04/17/17 08:38 Dose: 20 meq Potassium Phos/Sodium Phos (Neutra Phos 250 Mg Adam*) 250 mg G TUBE TID [facility] Last Admin: 04/17/17 21:32 Dose: 250 mg Prednisone (Deltasone Tab*) 20 mg G TUBE DAILY [facility] Last Admin: 04/17/17 08:38 Dose: 20 mg Warfarin Sodium (Coumadin Tab(*)) 2.5 mg PO DAILY@1700 JARRED PRN Reason: Protocol At 15:51 on 04/17, the patient received phenobarbital 1200mg IV x1. Propofol wean was attempted during the early afternoon but when epileptiform discharges returned, it was increased back to 40mcg/kg/min - Description Background: At the onset of the recording, the background consisted of a relatively continuous mixture of delta and theta slowing with superimposed beta frequencies which were better represented on the left. There were frequent epileptiform discahrges intermixed, as described below, though at times periods of continuous background activity devoid of epileptiform activity were observed. This quickly transitioned by just after 08:00 to a light burst- suppression pattern characterized by bursts of moderate voltage, mixed frequency activity lasting about 1 to 3 seconds interrupted by periods of suppression lasting 1-3 seconds on average. Bursts of activity continued to occur asymmetrically over the right and left hemispheres on occasion. In addition, bursts over the right hemisphere were frequently intermixed with spike and polyspike epileptiform activity maximal at C4 and P4. Over the course of the morning, this light burst-suppression pattern alternated with a more continuous background, as described above. At times, the right paracentral epileptiform discharges exhibited periodicity at 1Hz for 10 to 20 seconds. During this time, the midazolam dose was 10mg/hr and propofol had been reduced to 20mcg/kg/min. By 15:30, the EEG again demonstrated a deeper burst suppression pattern with short bursts of activity lasting 1 to 2 seconds at most and periods of suppression lasting up to 1 minute. This lasted several hours, and corresponsed with the administration of phenobarbital, then the depth lessened somewhat for the remainder of the recording with bursts lasting 1 to 2 seconds and interburst intervals of approximately 3 to 7 seconds. Intericatal Epileptiform Activity: During bursts of activity, as described above, there was intermixed epileptiform activity characterized by spike and polyspike waveforms of higher amplitude than the rest of the background activity, with associated slow waves. These were maximal at C4 and P4, with shifting predominance, and demonstrated a field to T4. At times, these discharges occurred at 1 to 2 Hz for several seconds. After 15:30, in general, the epileptiform activity was lower in amplitude and seen less often. Ictal Activity: None - Impression Impression: This is an abnormal long-term monitoring session. The background is characterized by a burst-suppression pattern, which was initially light at the beginning of the recording and alternated with a relatively continuous background with only brief periods of suppression. Intermixed within bursts of activity was epileptiform activity maximal over the right centroparietal region, which at times exhibited a periodicity of 1 to 2 Hz , but no clear evolution in terms of frequency or spatial location. As the recording progressed, the depth of suppression increased and after 15:30, there was no further continuous background activity seen. Epileptiform discharges continued to be intermixed within bursts of activity, but were of lower voltage and seen less often than earlier in the recording. These findings are suggestive of a severe, diffuse encephalopathy with superimposed continued increased epileptic potential in the right centroparietal region.
[2017-04-18 08:16] LABS: Phenytoin 15.5 mcg/mL (10-20)
[2017-04-18] MEDS: Potassium Chloride LIQUID* 20 MEQ PACKET PO SCH (08:45)
[2017-04-18] MEDS: Fosphenytoin(*) 100 MG/2 ML VIAL IV SLOW PU SCH ×3 (08:45→20:16)
[2017-04-18] MEDS: predniSONE TAB* 20 MG G TUBE SCH (08:45)
[2017-04-18] MEDS: Famotidine SUSP* 40 MG/5 ML ORAL.SYRIN G TUBE SCH (08:45)
[2017-04-18] MEDS: Potassium & Sodium Phos 250MG* = 1 PACKET G TUBE SCH ×3 (08:45→20:17)
[2017-04-18 08:51] LABS: Magnesium 1.9 mg/dL (1.9-2.7)
[2017-04-18] MEDS ORDERED: PHENobarbital SODIUM(*) 65 MG/ML VIAL IV SCH (09:00)
[2017-04-18] MEDS: PHENobarbital SODIUM(*) 65 MG/ML VIAL IV SCH ×2 (11:07→18:54)
[2017-04-18] MEDS: Senna TAB G TUBE SCH ×2 (11:11→20:17)
--- NOTE | 2017-04-18 11:48 | PN ---
Progress Note - Progress Note Date of Service: 04/18/17 Note: CRITICAL CARE MEDICINE DATE: 04/18/17 TIME: 1010 SUBJECTIVE: Patient seen and examined. PHYSICAL EXAM: Vital Signs: Reviewed. 30% Neurologic: eeg with burst suppression. coma on exam. pupils sluggish. HEENT: anicteric, ett in place Cardiovascular: distant, S1, S2, no m appreciated Respiratory: coarse but no rhonchi. aprv. not overbreathing. Abdomen: obese, soft. nt Extremities: warm, dep edema increased again Access: picc LABS: Reviewed. IMAGING: Reviewed. MEDICATIONS: Reviewed. ASSESSMENT: 66 F Status epilepticus, partial complex Acute hypoxic resp failure Hypovolemic shock Acute thrombocytopenia - depakote related; recovering Deconditioning Positional fluid overload PLAN: Neurologic: unable to march down on propofol yesterday; phenobarb added. level well today and tid dosing. can try slow taper prop again today to see where we can get. Neuro following. cEEG. time. d/w family. Cardiovascular: Hemodynamics maintained. low dose levo to combat sedatives. fluid status ok intravasc and interstium up and may need some mobilization support. Respiratory: jud vent and better with aprv. Gastrointestinal: tf continued. sup. Renal/Metabolic: stable. Na ok. follow Infectious Disease: no signs of infection. Hematology: on coumadin with good inr. Endocrine: steroid taper Musculoskeletal: bedrest. turn and avoid breakdown Psych/Social: daughter and family updated Supportive and preventative care as ordered. SUP: H2 VTE prophylaxis: coumadin Beaulieu catheter given critical illness, monitoring needs for accurate assessment of DANIKA and KDIGO criteria for critically ill patients and to avoid potential harms of urinary retention, skin breakdown/ulcers. Disposition: ICU Code Status: Full Critical Care Time: 35min will D/w Dr. Maurice Mejía DO
[2017-04-18] MEDS ORDERED: NS 0.9% 100 ML* 100 ML ONE (14:56)
[2017-04-18] MEDS ORDERED: Metoprolol Tartrate TAB* 100 MG TAB ONE (16:22)
[2017-04-18] MEDS: Warfarin TAB(*) 2.5 MG PO SCH (17:53)
[2017-04-18] MEDS: Magnesium Oxide TAB* 400 MG PO SCH (17:54)
[2017-04-18] MEDS: Atorvastatin* 40 MG TAB PO SCH (20:16)
--- NOTE | 2017-04-18 21:07 | CONS ---
NEUROLOGY CONSULT FOLLOWUP: DATE OF FOLLOWUP: 04/18/17 LOCATION: She is in ICU bed 6. HOSPITALIST: Dr. Mejía. CHIEF COMPLAINT: Nonconvulsive status epilepticus. INTERVAL HISTORY: Since yesterday, Ms. Caputo has not had any clinical events. She is remained on continuous EEG monitoring. She has been in burst suppression through the night last night and today. Propofol has been gradually weaned. She is down to 10 mg of Versed per hour and propofol is down to 10 mcg/kg/min. She remains on phenobarbital 60 mg IV q.8 hours, fosphenytoin 150 mg IV q.8 hours, levetiracetam 1000 mg IV q.8 hours. DIAGNOSTIC STUDIES/LAB DATA: Laboratory data from early today notable for a phenytoin level of 15.5 early this morning at which time phenobarbital was 17.2. Levetiracetam level on 04/15/17 was 14. Other laboratories today notable for chemistry profile which is fairly unremarkable, other than a sodium of 132, CBC notable for slight drop in hemoglobin at 10.9. PHYSICAL EXAMINATION: She is remained afebrile, temperature 99.5 by Beaulieu which is up from previously when she was hypothermic. Blood pressure is fairly steady between about 110 to 120 systolic/60 to 70 diastolic. Heart rates running in the 70s and regular. Oxygen saturations are 100% and respiratory rate is only triggered respirations. Examination on the above drug regimen, she has no spontaneous movements. Pupils react equally from about 3.5 down to 2 mm. Eye movements are slightly divergent, but otherwise unmoving. There are no corneal reflexes and no nasal tickle response. There are no spontaneous facial or limb movements. She has decreased muscle tone in all limbs. There is no response to deep nail bed pressure in any of her limbs. She was examined several times over the course of the day. IMPRESSION: Nonconvulsive status epilepticus, which is relatively stable in terms of a fairly stable burst suppression pattern on EEG. We have been able to taper down propofol to 10 mg. The plan is to leave her on the current drug regimen until tomorrow. At that point, I suspect that to be further tapering of propofol and attempts to lighten the patient up and see where she is at clinically. Dr. Eulalia Humphrey will be taking over in our hospitalist duty as of this evening. [id number]/[facility] #: [id number] LOREN
[2017-04-19] MEDS: Insulin REGULAR(*) 1 UNITS UNIT SUBCUT SCH ×4 (00:48→19:39)
[2017-04-19] MEDS: Chlorhexidine MOUTHWASH 0.12%* 15 ML UDC TOPICAL SCH ×7 (01:39→23:53)
[2017-04-19] MEDS: Propofol* 100 ML IV SCH ×2 (01:45→20:40)
[2017-04-19] MEDS: PHENobarbital SODIUM(*) 65 MG/ML VIAL IV SCH ×2 (03:35→19:23)
[2017-04-19] MEDS: levETIRAcetam IV* 1,000 MG in NS 0.9% 100 ML* 100 ML IVPB SCH ×3 (07:50→21:56)
[2017-04-19] MEDS: Midazolam PREMIX BAG 1 MG/ML* 100 MG/100 ML BAG IV SCH ×2 (08:18→16:35)
[2017-04-19] MEDS: Norepinephrine VIAL* 4 MG in NS 0.9% 250 ML* 246 ML IVPB SCH ×2 (08:18→20:45)
[2017-04-19] MEDS: predniSONE TAB* 20 MG G TUBE SCH (09:12)
[2017-04-19] MEDS: Potassium Chloride LIQUID* 20 MEQ PACKET PO SCH (09:12)
[2017-04-19] MEDS: Senna TAB G TUBE SCH ×2 (09:12→21:30)
[2017-04-19] MEDS: Famotidine SUSP* 40 MG/5 ML ORAL.SYRIN G TUBE SCH (09:12)
[2017-04-19] MEDS: Potassium & Sodium Phos 250MG* = 1 PACKET G TUBE SCH ×3 (09:12→21:30)
[2017-04-19] MEDS: Fosphenytoin(*) 100 MG/2 ML VIAL IV SLOW PU SCH ×3 (09:25→21:30)
[2017-04-19] MEDS ORDERED: Magnesium Hydroxide LIQ* 30 ML UDC G TUBE ONE (10:03)
[2017-04-19] MEDS ORDERED: Furosemide IV* 10 MG/ML VIAL (40 MG) IV SLOW PU ONE (10:03)
--- NOTE | 2017-04-19 10:31 | PN ---
PROGRESS NOTE: DATE OF FOLLOWUP: 04/19/17 LOCATION: The patient is in ICU bed 6. HISTORY: I have received sign out from Dr. Richards on Alicia Tavarez who has been in status epil epticus since her arrival on 04/14. Today, she is clinically unchanged. Her son was present in the room and did not have any questions. She remains in a light burst suppression pattern on continuous EEG. MEDICATIONS: Medications were reviewed and pertinent medications include: 1. Fosphenytoin 150 mg IV t.i.d. 2. Levetiracetam 1000 mg IV q.8 hours. 3. Phenobarbital 60 mg IV q.8 hours. In addition, she remains on: 1. Midazolam drip at 10 mg IV per hour. 2. Propofol drip at 10 mcg per kg per minute. In addition, she continues to receive Levophed for blood pressure support. PHYSICAL EXAMINATION: Vital signs, temperature 99.7 by Beaulieu probe. Blood pressure is 107/67, heart rate 67, and oxygen saturation is 100% on the ventilator. She is not triggering the ventilator. On examination, she is unresponsive. Her heart is in regular rate and rhythm. Lungs have coarse breath sounds bilaterally. On neurologic examination, her pupils are equal, round, and reactive from 4 to 3 mm bilaterally. Her gaze is mid positioned. She has no corneals and no nasal tickle. She has no ga g or cough. Her extremities are flaccid with no withdrawal to noxious stimulation. Her toes are mut e. DATA: There is no new laboratory data to review today. A phenobarbital level has been ordered and i s pending. She did have a point of care glucose done this morning at 7:39, which was 125. Her pheny toin level yesterday morning was 15.5 and phenobarbital was 17.2. IMPRESSION: Alicia Tavarez is a 66-year-old woman with a history of right hemispheric str mel in June who had the onset of seizures in March and then presented in status epilepticus on 04/14/17. She has been in a medically induced coma with escalating doses of antiseizure medications , but has remained refractory. We will await her phenobarbital level prior to attempting to further reduce the propofol drip today, but the intent is to see if we can wean that drip now that renny roberts is on board. If this is unsuccessful, we may need to consider what further measures we have to o ffer her here at this point and would need to discuss with the family whether they would want transfe r to tertiary care center for further treatment. [id number]/[facility] #: [id number]
[2017-04-19] MEDS ORDERED: PHENobarbital SODIUM(*) 65 MG/ML VIAL IV ONE ×2 (10:40→11:40)
--- NOTE | 2017-04-19 11:11 | PN ---
Progress Note - Progress Note Date of Service: 04/19/17 Note: CRITICAL CARE MEDICINE DATE: 04/19/17 TIME: 950 SUBJECTIVE: Patient seen and examined. PHYSICAL EXAM: Vital Signs: Reviewed. 30% Neurologic: eeg with burst suppression. coma on exam. pupils sluggish. HEENT: anicteric, ett in place Cardiovascular: distant, S1, S2, no m appreciated Respiratory: coarse but no rhonchi. aprv. not overbreathing. Abdomen: obese, soft. nt Extremities: warm, inc dep edema. inc ecchymosis left lateral leg Access: picc LABS: Reviewed. IMAGING: Reviewed. MEDICATIONS: Reviewed. ASSESSMENT: 66 F Nonconvulsive Status epilepticus Acute hypoxic resp failure - intubated 04/14 Hypovolemic shock - recovered; occasioanal levophed needs sec to vasodilation of sedation rx Acute thrombocytopenia - depakote related; recovered Deconditioning Positional fluid overload PLAN: Neurologic: phenobarb level 18.8 and dosing inc to 100mg tid. turn off propofol today and see how eeg response. next expecting pt to clinically awaken yet, but should awaken more on EEG, but at least if no seizures then anticipate low dose propofol resumption and dec versed gtt more then half to allow some clearance time until tomorrow and then again see how she would do off prop again and if tolerable then dc versed and use low dose prop until she could then again come off altogether in favor of more wakeful response and clincal tx with satisifacory levels. If she develops seizure during this then may need deeper and longer and would discuss tertiary care for such measures (ie pentabarb or even surgical options). explained all this to family. Cardiovascular: Hemodynamics maintained. low dose levo as needed. fluid status up and see if we can mobilize some edema today. Respiratory: aprv. lung protection but has no spont breaths Gastrointestinal: tf continued. sup. mom Renal/Metabolic: stable. check tomorrow Infectious Disease: no signs of infection. Hematology: on coumadin with good inr. Endocrine: steroid taper Musculoskeletal: bedrest. avoid breakdown Psych/Social: daughter and family updated Supportive and preventative care as ordered. SUP: H2 VTE prophylaxis: coumadin Beaulieu catheter given critical illness, monitoring needs for accurate assessment of DANIKA and KDIGO criteria for critically ill patients and to avoid potential harms of urinary retention, skin breakdown/ulcers. Disposition: ICU Code Status: Full Critical Care Time: 35min will D/w Dr. Kam Mejía DO
--- NOTE | 2017-04-19 11:34 | EEG ---
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 In March, she presented with new onset seizures and was treated with Depakote. She presented to the ER on 04/13 in focal status epilepticus with twitching of the left face and arm in the setting of being late with her morning dose of Depakote. She was also found to by hypotensive with laboratory abnormalities such as thrombocytopenia and hyponatremia. She continued to be unresponsive so EEG was requested to evaluate for non-convulsive seizures and follow the course of treatment. She was found to be in status and EEG is continued to follow the course of treatment. Introduction: INTRODUCTION: The EEG was monitored from 19 scalp electrodes which consisted of the standard parasagittal, temporal and midline leads of the International 10-20 system. EEG data were recorded on an [employer] system with simultaneous MPEG-4 digital video recording of patient behavior. EEG recording was in a monopolar montage with all electrodes referenced to FCz. Significant behavioral events were signaled by an event button, or putative electrical seizure events were detected by a computer program. All EEG data were reviewed in their entirety on a monitor with reconstruction of montages and adjustments of sensitivity and filtering. Simultaneous patient behavior was viewed on an adjacent monitor and correlated with the EEG. - Medications Active Medications: Atorvastatin Calcium (Lipitor*) 40 mg PO 2100 [facility] Last Admin: 04/18/17 20:16 Dose: 40 mg Chlorhexidine Gluconate (Peridex Mouth Wash 0.12%*) 15 ml TOPICAL Q4H [facility] Last Admin: 04/19/17 09:26 Dose: 15 ml Dextrose (D50w Syringe 50 Ml*) 25 gm IV PUSH ONCE PRN PRN Reason: FS < 60 Last Admin: 04/13/17 20:50 Dose: 25 gm Famotidine (Pepcid Susp*) 20 mg G TUBE DAILY [facility] Last Admin: 04/19/17 09:12 Dose: 20 mg Fosphenytoin Sodium (Cerebyx(*)) 150 mg IV SLOW PU TID [facility] Last Admin: 04/19/17 09:25 Dose: 150 mg Propofol (Diprivan*) 100 mls @ 9.372 mls/hr IV .(Initial Rate) JARRED; 20 MCG/KG/ MIN PRN Reason: Protocol Last Admin: 04/19/17 01:45 Dose: 9.372 mls/hr Midazolam HCl (Versed Premix Bag 1 Mg/Ml*) 100 mg in 100 mls @ 10 mls/hr IV .Q24HR [facility] PRN Reason: 10 MG/HR Last Admin: 04/19/17 08:18 Dose: 10 mls/hr Levetiracetam 1,000 mg/ Sodium (Chloride) 110 mls @ 420 mls/hr IVPB Q8HR [facility] Last Admin: 04/19/17 07:50 Dose: 420 mls/hr Norepinephrine Bitartrate 4 mg (/ Sodium Chloride) 250 mls @ 18.75 mls/hr IVPB Q13H [facility] PRN Reason: 5 MCG/MIN Last Admin: 04/19/17 08:18 Dose: 18.75 mls/hr Insulin Human Regular (Insulin Regular(*)) 0 - 8 units SUBCUT FS Q6 ICU [facility] PRN Reason: Protocol Last Admin: 04/19/17 07:40 Dose: Not Given Magnesium Oxide (Magox 400 Tab*) 400 mg PO QPM [facility] Last Admin: 04/18/17 17:54 Dose: 400 mg Pharmacy Profile Note (Coumadin Daily Reminder*) 1 note FOLLOW UP 1700 [facility] Last Admin: 04/18/17 18:00 Dose: 1 note Phenobarbital (Phenobarbital Iv(*)) 100 mg IV Q8H [facility] Potassium Chloride (Klor-Con Liquid*) 20 meq PO DAILY [facility] Last Admin: 04/19/17 09:12 Dose: 20 meq Potassium Phos/Sodium Phos (Neutra Phos 250 Mg Adam*) 250 mg G TUBE TID [facility] Last Admin: 04/19/17 09:12 Dose: 250 mg Prednisone (Deltasone Tab*) 20 mg G TUBE DAILY [facility] Last Admin: 04/19/17 09:12 Dose: 20 mg Senna (Senokot Tab*) 1 tab G TUBE BID [facility] Last Admin: 04/19/17 09:12 Dose: 1 tab Warfarin Sodium (Coumadin Tab(*)) 2.5 mg PO DAILY@1700 [facility] PRN Reason: Protocol Last Admin: 04/18/17 17:53 Dose: 2.5 mg Propofol drip started at 40mcg/kg/min then was weaned by 10mcg/kg/min in the early afternoon and remained there. - Description Background: At the onset of the recording, the background consisted of a burst-suppression pattern characterized by bursts of moderate voltage, mixed frequency activity lasting 1 to 2 seconds and interburst intervals of approximately 3 to 11 seconds. The depth of suppression lessened as propofol was weaned and bursts of activity lasted 2 to 6 seconds, interrupted by periods of suppression lasting 1 to 5 seconds. In addition, activity over the left hemisphere was generally less suppressed than activity over the right. There continued to be epileptiform discharges intermixed within bursts of activity over the right hemisphere, with characteristics described below, but there were some bursts of activity devoid of epileptiform activity. Intericatal Epileptiform Activity: During bursts of activity, as described above, there was intermixed epileptiform activity characterized by spike and polyspike waveforms of higher amplitude than the rest of the background activity, with associated slow waves. These were maximal at C4 and P4, with shifting predominance, and demonstrated a field to T4. At times, these discharges occurred at 0.5 to 1 Hz for several seconds. Ictal Activity: None - Impression Impression: This is an abnormal long-term monitoring session. The background is characterized by a burst-suppression pattern, which was initially deeper at the beginning of the recording and lightened as the recording progressed, but she remained in a burst-suppression pattern. Intermixed within bursts of activity was epileptiform activity maximal over the right centroparietal region, which at times exhibited a periodicity of 0.5 to 1 Hz, but no clear evolution in terms of frequency or spatial location. These findings are suggestive of a severe, diffuse encephalopathy with superimposed continued increased epileptic potential in the right centroparietal region.
[2017-04-19] MEDS: Albumin Human 25%* 50 ML BTL IV ONE ×2 (14:40→14:56)
[2017-04-19] MEDS: Albumin Human 25%* 50 ML in PREMIX* 0 ML IV SCH ×2 (14:56→21:29)
[2017-04-19 15:44] LABS: Hematocrit 32 % (35-47); Hemoglobin 10.5 g/dl (12.0-16.0); Mean Corpuscular HGB Conc 33 g/dl (31-36); Mean Corpuscular Hemoglobin 31 pg (27-31); Mean Corpuscular Volume 92 fL (80-97); Mean Platelet Volume 8 um3 (7.4-10.4); Red Blood Count 3.43 10^6/ul (4.0-5.4); Red Cell Distribution Width 15 % (10.5-15); White Blood Count 12.8 10^3/ul (3.5-10.8)
[2017-04-19] MEDS: Magnesium Oxide TAB* 400 MG PO SCH (18:07)
[2017-04-19] MEDS: Warfarin TAB(*) 2.5 MG PO SCH (18:07)
[2017-04-19] MEDS ORDERED: Midazolam PREMIX BAG 1 MG/ML* 100 MG/100 ML BAG IV SCH (20:38)
[2017-04-19] MEDS: Atorvastatin* 40 MG TAB PO SCH (21:29)
[2017-04-20] MEDS: Insulin REGULAR(*) 1 UNITS UNIT SUBCUT SCH ×4 (00:01→18:42)
[2017-04-20] MEDS: PHENobarbital SODIUM(*) 65 MG/ML VIAL IV SCH ×3 (01:52→18:54)
[2017-04-20] MEDS: Albumin Human 25%* 50 ML in PREMIX* 0 ML IV SCH ×2 (01:52→08:49)
[2017-04-20] MEDS: Propofol* 100 ML IV SCH ×2 (04:49→16:49)
[2017-04-20] MEDS: Chlorhexidine MOUTHWASH 0.12%* 15 ML UDC TOPICAL SCH ×3 (04:49→13:52)
[2017-04-20] MEDS: levETIRAcetam IV* 1,000 MG in NS 0.9% 100 ML* 100 ML IVPB SCH ×2 (06:08→14:48)
[2017-04-20 06:38] LABS: Hematocrit 30 % (35-47); Mean Corpuscular HGB Conc 34 g/dl (31-36); Mean Corpuscular Hemoglobin 31 pg (27-31); Mean Corpuscular Volume 92 fL (80-97); Mean Platelet Volume 8 um3 (7.4-10.4); Red Blood Count 3.21 10^6/ul (4.0-5.4); Red Cell Distribution Width 14 % (10.5-15); White Blood Count 13.3 10^3/ul (3.5-10.8)
[2017-04-20 06:39] LABS: Add Diff/Slide Review? Slide Review Added; BUN/Creatinine Ratio 50.8 (8-20); Calcium 8.4 mg/dL (8.6-10.3); Comments Flag Yes; EGFR African American 117.3 (>60); EGFR Non-African American 91.2 (>60); Magnesium 1.7 mg/dL (1.9-2.7); Phosphorus 3.5 mg/dL (2.5-5.0); Potassium 4.4 mmol/L (3.5-5.0)
[2017-04-20] MEDS ORDERED: Magnesium Sulfate 2 GM IV* 2 GM/50 ML BAG IVPB ONE (08:16)
[2017-04-20] MEDS ORDERED: Albumin Human 25%* 50 ML BTL IV ONE (08:45)
[2017-04-20] MEDS: Potassium & Sodium Phos 250MG* = 1 PACKET G TUBE SCH ×2 (09:06→13:52)
[2017-04-20] MEDS: Famotidine SUSP* 40 MG/5 ML ORAL.SYRIN G TUBE SCH (09:06)
[2017-04-20] MEDS: Potassium Chloride LIQUID* 20 MEQ PACKET PO SCH (09:06)
[2017-04-20] MEDS: Senna TAB G TUBE SCH (09:06)
[2017-04-20] MEDS: predniSONE TAB* 20 MG G TUBE SCH (09:06)
[2017-04-20] MEDS: Fosphenytoin(*) 100 MG/2 ML VIAL IV SLOW PU SCH ×2 (09:24→13:52)
[2017-04-20] MEDS: Norepinephrine VIAL* 4 MG in NS 0.9% 250 ML* 246 ML IVPB SCH (10:45)
[2017-04-20 11:24] LABS: Phenytoin 20.8 mcg/mL (10-20)
[2017-04-20] MEDS ORDERED: Midazolam PREMIX BAG 1 MG/ML* 100 MG/100 ML BAG IV SCH ×3 (12:08→14:24)
--- NOTE | 2017-04-20 12:20 | EEG ---
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 In March, she presented with new onset seizures and was treated with Depakote. She presented to the ER on 04/13 in focal status epilepticus with twitching of the left face and arm in the setting of being late with her morning dose of Depakote. She was also found to by hypotensive with laboratory abnormalities such as thrombocytopenia and hyponatremia. She continued to be unresponsive so EEG was requested to evaluate for non-convulsive seizures and follow the course of treatment. She was found to be in status and EEG is continued to follow the course of treatment. Introduction: INTRODUCTION: The EEG was monitored from 19 scalp electrodes which consisted of the standard parasagittal, temporal and midline leads of the International 10-20 system. EEG data were recorded on an [employer] system with simultaneous MPEG-4 digital video recording of patient behavior. EEG recording was in a monopolar montage with all electrodes referenced to FCz. Significant behavioral events were signaled by an event button, or putative electrical seizure events were detected by a computer program. All EEG data were reviewed in their entirety on a monitor with reconstruction of montages and adjustments of sensitivity and filtering. Simultaneous patient behavior was viewed on an adjacent monitor and correlated with the EEG. - Medications Active Medications: Atorvastatin Calcium (Lipitor*) 40 mg PO 2100 [facility] Last Admin: 04/19/17 21:29 Dose: 40 mg Chlorhexidine Gluconate (Peridex Mouth Wash 0.12%*) 15 ml TOPICAL Q4H [facility] Last Admin: 04/20/17 08:57 Dose: 15 ml Dextrose (D50w Syringe 50 Ml*) 25 gm IV PUSH ONCE PRN PRN Reason: FS < 60 Last Admin: 04/13/17 20:50 Dose: 25 gm Famotidine (Pepcid Susp*) 20 mg G TUBE DAILY [facility] Last Admin: 04/20/17 09:06 Dose: 20 mg Fosphenytoin Sodium (Cerebyx(*)) 150 mg IV SLOW PU TID [facility] Last Admin: 04/20/17 09:24 Dose: 150 mg Propofol (Diprivan*) 100 mls @ 9.372 mls/hr IV .(Initial Rate) JARRED; 20 MCG/KG/ MIN PRN Reason: Protocol Last Admin: 04/20/17 04:49 Dose: 9.372 mls/hr Levetiracetam 1,000 mg/ Sodium (Chloride) 110 mls @ 420 mls/hr IVPB Q8HR [facility] Last Admin: 04/20/17 06:08 Dose: 420 mls/hr Norepinephrine Bitartrate 4 mg (/ Sodium Chloride) 250 mls @ 18.75 mls/hr IVPB Q13H [facility] PRN Reason: 5 MCG/MIN Last Admin: 04/20/17 10:45 Dose: 18.8 mls/hr Albumin Human 50 ml/ IV (Solution) 50 mls @ 0 mls/hr IV Q6H [facility] PRN Reason: As Directed Stop: 04/20/17 13:59 Last Admin: 04/20/17 08:49 Dose: 100 mls/hr Midazolam HCl (Versed Premix Bag 1 Mg/Ml*) 100 mg in 100 mls @ 8 mls/hr IV .Q24HR [facility] PRN Reason: 8 MG/HR Insulin Human Regular (Insulin Regular(*)) 0 - 8 units SUBCUT FS Q6 ICU [facility] PRN Reason: Protocol Last Admin: 04/20/17 12:17 Dose: 6 units Magnesium Oxide (Magox 400 Tab*) 400 mg PO QPM [facility] Last Admin: 04/19/17 18:07 Dose: 400 mg Pharmacy Profile Note (Coumadin Daily Reminder*) 1 note FOLLOW UP 1700 [facility] Last Admin: 04/19/17 17:34 Dose: 1 note Phenobarbital (Phenobarbital Iv(*)) 100 mg IV Q8H [facility] Last Admin: 04/20/17 10:53 Dose: 100 mg Potassium Chloride (Klor-Con Liquid*) 20 meq PO DAILY [facility] Last Admin: 04/20/17 09:06 Dose: 20 meq Potassium Phos/Sodium Phos (Neutra Phos 250 Mg Adam*) 250 mg G TUBE TID [facility] Last Admin: 04/20/17 09:06 Dose: 250 mg Prednisone (Deltasone Tab*) 10 mg G TUBE DAILY [facility] Stop: 04/23/17 09:01 Senna (Senokot Tab*) 1 tab G TUBE BID [facility] Last Admin: 04/20/17 09:06 Dose: 1 tab At the beginning of the recording, propofol was at 10mcg/kg/min and midazolam was at 10mg/hr. Propofol was turned off around 11:30 until around 21:00 when it was turned back on at 20mcg/kg/min. Around 21:00, midazolam was reduced to 4mg/ hr. Phenobarbital dose was increased to 100mg q8hr and a bolus dose of 100mg was given at 11:05. - Description Background: At the onset of the recording, the background consisted of a burst-suppression pattern characterized by bursts of moderate voltage, mixed frequency activity lasting 2 to 6 seconds, interrupted by periods of suppression lasting 1 to 5 seconds. There continued to be epileptiform discharges intermixed within bursts of activity over the right hemisphere, with characteristics described below, but there were some bursts of activity devoid of epileptiform activity. Once propofol was turned off, the background became mostly continuous, with only occasional 1 second periods of diffuse suppression. ARound 1500, the EEG again entered a deeper burst-suppression pattern. Over the remainder of the recording , the depth of burst-suppression varied, but in general bursts lasted between 1 and 4 seconds and suppressions between 1 and 6 seconds. Intericatal Epileptiform Activity: During bursts of activity, there was intermixed epileptiform activity characterized by spike and polyspike waveforms of higher amplitude than the rest of the background activity, with associated slow waves. These were maximal at C4 and P4, with shifting predominance, and demonstrated a field to T4/T6. At times, these discharges occurred at 0.5 to 1 Hz for several seconds. Ictal Activity: None - Impression Impression: This is an abnormal long-term monitoring session. The background is characterized by a burst-suppression pattern, which was variable throughout the recording. When propofol was temporarily held, the background became more continuous. Intermixed within bursts of activity was epileptiform activity maximal over the right centroparietal region, which at times exhibited a periodicity of 0.5 to 1 Hz, but no clear evolution in terms of frequency or spatial location. These findings are suggestive of a severe, diffuse encephalopathy with superimposed continued increased epileptic potential in the right centroparietal region.
--- NOTE | 2017-04-20 12:23 | PN ---
Progress Note - Progress Note Date of Service: 04/20/17 Note: CRITICAL CARE MEDICINE DATE: 04/20/17 TIME: 1135 SUBJECTIVE: Patient seen and examined. daughter and family at bedside. PHYSICAL EXAM: Vital Signs: Reviewed. 30% Neurologic: eeg with burst suppression and with loew versed adn off prop return to status. coma on exam although did have gag breifly while off prop and on 4mg versed/hr. HEENT: anicteric, ett in place Cardiovascular: distant, S1, S2, no m appreciated Respiratory: coarse with bl rhonchi. aprv. not overbreathing. Abdomen: obese, soft. nt Extremities: warm, inc dep edema. same ecchymosis left lateral leg Access: picc LABS: Reviewed. IMAGING: Reviewed. MEDICATIONS: Reviewed. ASSESSMENT: 66 F Nonconvulsive refractory status epilepticus Induced coma Acute hypoxic resp failure - intubated 04/14 Hypovolemic shock - recovered Acute thrombocytopenia - depakote related; recovered Deconditioning Positional fluid overload PLAN: Neurologic: phenobarb level >25, phenytoin > 20 on keppra as well with versed at 4mg/hr and prop at 20 this am. off prop briefly and status returing. rebolused with versed and inc. d/w Dr. Humphrey and family. Time to look for larger academic center with neuro icu. Cardiovascular: Hemodynamics maintained. low dose levo if needed. fluid status stable. Respiratory: aprv. some mucus plugging perhaps. check cxr today. adjust vent for a little time to see if we can promote a pulm toliet based on pressure changes. lung protection. Gastrointestinal: tf continued. sup. Renal/Metabolic: stable. replete Mg >2 Infectious Disease: no signs of infection but had very low grade temp yesterday and wbc same while taper steroids. No abx needs at present. ?atelectasis. check cxr. Hematology: on coumadin with good inr, but if we look to transfer pt may need to undergo lp down the line and re-evals and can start to let inr drift for now. Endocrine: steroid taper to off soon. Musculoskeletal: bedrest given condition. avoid skin breakdown Psych/Social: daughter and family updated Supportive and preventative care as ordered. SUP: H2 VTE prophylaxis: coumadin Beaulieu catheter given critical illness, monitoring needs for accurate assessment of DANIKA and KDIGO criteria for critically ill patients and to avoid potential harms of urinary retention, skin breakdown/ulcers. Disposition: ICU; look [facility] Code Status: Full Critical Care Time: 35min D/w Dr. Kam Mejía,
--- NOTE | 2017-04-20 13:26 | RAD ---
Indication: Seizure. Atrial fibrillation. Anticoagulated. Comparison: April 15, 2017 Technique: Upright AP 1250 hours Report: Endotracheal tube tip 2.7 cm above the [place]. RIGHT upper extremity PICC tip at level of superior vena cava RIGHT atrial junction. Nasogastric tube passes to the stomach and outside the [id number] caudally. Extensive pneumomediastinum with extension to the LEFT supraclavicular region and bilateral neck. No conspicuous associated pneumothorax. Mild consolidation at the LEFT lung base without significant interval change. Negative for pleural effusions. Upper normal heart size. Unremarkable central pulmonary vasculature accounting for rightward rotation. IMPRESSION: Pneumomediastinum. No significant change in LEFT basilar airspace consolidation which may represent atelectasis or pneumonia. Results discussed with Dr. Mejía 04/20/2017 1:23 PM EST
[2017-04-20 13:48] LABS: Free Phenytoin Level 5.3 mcg/mL (1.0 - 2.0)
--- NOTE | 2017-04-20 14:08 | DS ---
CRITICAL CARE MEDICINE DISCHARGE SUMMARY ADMISSION DATE: 04/13/2017 ICU ADMISSION DATE: 04/14/2017 ICU DISCHARGE DATE: 04/20/2017 PRIMARY CARE PROVIDER: Mario Garcia DIAGNOSIS: 1. Refractory nonconvulsive status epilepticus. 2. Induced coma. 3. Acute hypoxic respiratory failure. 4. Hypovolemic shock. 5. Relative adrenal insufficiency. 6. Pneumomediastinum on mechanical ventilation. 7. History of atrial fibrillation on chronic anticoagulation. 8. Thrombocytopenia on admission secondary to depakote. MEDICATIONS AT DISCHARGE: 1. Versed drip at 15mg/hr. 2. Propofol drip at 20mcg/kg/hr. 3. Fosphenytoin 150mg IV TID. 4. Keppra 1000mg IV TID. 5. Phenobarbital 100mg IV TID. 6. Lipitor 40mg daily at night. 7. Coumadin 5mg daily (last dose coumadin 04/19). 8. Mag oxide 400mg daily at night. 9. Pepcid 20mg daily. 10. Prednisone taper 10mg daily (last dose due 04/22). 11. Chlorhexadine 0.12% mouth care every 4 hours. 12. Senna one tab BID. 13. Insulin sliding scale. ALLERGIES: Depakote. HOSPITAL COURSE: 66 female with history of stroke June 2016 with underlying strial fibrillation now on chronic anticoagulation and resulting large burden of right parietal occipital encephalomalacia. Evaulated in early March for seizure disorder attributed. Placed on keppra and then changed to dilatin. Apparently well until a few days perhaps prior to her presentation on 04/13/2017 with nonconvulsive status epilepticus. Poorly controlled and developed subsequent hypovolemic shock and poor response to intial therapies with remaining status epilepticus requiring intubation and mechanical ventilation and multiple medication for seizure control. See above current medication. Responsive to bezodiazepines lately and increased dosing to keep propofol low and perhaps off. Had lower lung volumes today and mucus plugging with multiple suctioning attempts. Subsequent chest x-ray with pneumomediatinum and subcutaneous air. Patient already placed on pressure control and will maintain there as she remains synchronized with vent with coma on exam. Every attempt at lowering propofol drips to off or versed drip has been meet with more epileptiform discharges. Has been able to resume burst suppression but unable to stalin focus. Seeking transfer for high level of care Epileptology specialists. Family up to date on plans. DISPOSITION: [facility] in [place] c/o Dr. Costello. DIET: Tube feeding Glucerna 1.2 at 40ml/hr. ACTIVITY: Bedrest. CODE STATUS: FULL. FOLLOW UP: with treating medical service Esequiel Mejía DO
[2017-04-20 18:47] VITALS: BP 122/72
[2017-04-20] MEDS: Magnesium Oxide TAB* 400 MG PO SCH (18:55)
--- NOTE | 2017-04-20 23:40 | EEG ---
HALFWAY VIDEO/EEG MONITORING - Monitoring Monitoring Start Date: 04/20/17 Current Monitoring Session: 04/20/17 at 09:33 to 17:32 EEG Clinical Indication: Alicia Pena is a 66 year old woman with atrial fibrillation on Coumadin who experienced a stroke in the right hemisphere in June. In March, she presented with new onset seizures and was treated with Depakote. She presented to the ER on 04/13 in focal status epilepticus with twitching of the left face and arm in the setting of being late with her morning dose of Depakote. She was also found to by hypotensive with laboratory abnormalities such as thrombocytopenia and hyponatremia. She continued to be unresponsive so EEG was requested to evaluate for non-convulsive seizures and follow the course of treatment. She was found to be in status and EEG is continued to follow the course of treatment. Introduction: INTRODUCTION: The EEG was monitored from 19 scalp electrodes which consisted of the standard parasagittal, temporal and midline leads of the International 10-20 system. EEG data were recorded on an [employer] system with simultaneous MPEG-4 digital video recording of patient behavior. EEG recording was in a monopolar montage with all electrodes referenced to FCz. Significant behavioral events were signaled by an event button, or putative electrical seizure events were detected by a computer program. All EEG data were reviewed in their entirety on a monitor with reconstruction of montages and adjustments of sensitivity and filtering. Simultaneous patient behavior was viewed on an adjacent monitor and correlated with the EEG. - Medications Active Medications: Atorvastatin Calcium (Lipitor*) 40 mg PO 2100 [facility] Last Admin: 04/19/17 21:29 Dose: 40 mg Chlorhexidine Gluconate (Peridex Mouth Wash 0.12%*) 15 ml TOPICAL Q4H [facility] Last Admin: 04/20/17 13:52 Dose: 15 ml Dextrose (D50w Syringe 50 Ml*) 25 gm IV PUSH ONCE PRN PRN Reason: FS < 60 Last Admin: 04/13/17 20:50 Dose: 25 gm Famotidine (Pepcid Susp*) 20 mg G TUBE DAILY [facility] Last Admin: 04/20/17 09:06 Dose: 20 mg Fosphenytoin Sodium (Cerebyx(*)) 150 mg IV SLOW PU TID [facility] Last Admin: 04/20/17 13:52 Dose: 150 mg Propofol (Diprivan*) 100 mls @ 9.372 mls/hr IV .(Initial Rate) JARRED; 20 MCG/KG/ MIN PRN Reason: Protocol Last Admin: 04/20/17 16:49 Dose: 9.372 mls/hr Levetiracetam 1,000 mg/ Sodium (Chloride) 110 mls @ 420 mls/hr IVPB Q8HR [facility] Last Admin: 04/20/17 14:48 Dose: 420 mls/hr Norepinephrine Bitartrate 4 mg (/ Sodium Chloride) 250 mls @ 18.75 mls/hr IVPB Q13H JARRED PRN Reason: 5 MCG/MIN Last Admin: 04/20/17 10:45 Dose: 18.8 mls/hr Midazolam HCl (Versed Premix Bag 1 Mg/Ml*) 100 mg in 100 mls @ 15 mls/hr IV .Q24HR JARRED PRN Reason: 15 MG/HR Last Admin: 04/20/17 18:26 Dose: 15 mls/hr Insulin Human Regular (Insulin Regular(*)) 0 - 8 units SUBCUT FS Q6 ICU JARRED PRN Reason: Protocol Last Admin: 04/20/17 18:42 Dose: 3 units Magnesium Oxide (Magox 400 Tab*) 400 mg PO QPM [facility] Last Admin: 04/20/17 18:55 Dose: 400 mg Pharmacy Profile Note (Coumadin Daily Reminder*) 1 note FOLLOW UP 1700 [facility] Last Admin: 04/20/17 17:23 Dose: 1 note Phenobarbital (Phenobarbital Iv(*)) 100 mg IV Q8H [facility] Last Admin: 04/20/17 18:54 Dose: 100 mg Potassium Chloride (Klor-Con Liquid*) 20 meq PO DAILY [facility] Last Admin: 04/20/17 09:06 Dose: 20 meq Potassium Phos/Sodium Phos (Neutra Phos 250 Mg Adam*) 250 mg G TUBE TID [facility] Last Admin: 04/20/17 13:52 Dose: 250 mg Prednisone (Deltasone Tab*) 10 mg G TUBE DAILY [facility] Stop: 04/23/17 09:01 Senna (Senokot Tab*) 1 tab G TUBE BID [facility] Last Admin: 04/20/17 09:06 Dose: 1 tab At the onset of the recording, propofol was set at 20mcg/kg/min and midazolam turned down to 4mg/hr. At 10:15, propofol was decreased to 10mcg/kg/min. Around noon, the patient received an additional 4mg midazolam bolus and the drip was increased to 8mg/hr. - Description Background: At the onset of the recording, the background consisted of a burst-suppression pattern characterized by bursts of moderate voltage, mixed frequency activity lasting 2 to 6 seconds, interrupted by periods of suppression lasting 1 to 5 seconds. There continued to be epileptiform discharges intermixed within bursts of activity over the right hemisphere, with characteristics described below, and these were initially very frequent. When propofol was turned off while midazolam remained at 4mg/hr, discharges were seen to occur at 1Hz to 2 Hz for up to 10 seconds. Once propofol was turned back on and midazolam was increased, the background again entered a deeper burst-suppression pattern characterized by periods of suppression lasting up to 10 seconds interrupted by bursts of activity lasting 1 to 2 seconds. Epileptiform activity was less frequent, but waxed and waned. Intericatal Epileptiform Activity: During bursts of activity, there was intermixed epileptiform activity characterized by spike and polyspike waveforms of higher amplitude than the rest of the background activity, with associated slow waves. These were maximal at C4 and P4, with shifting predominance, and demonstrated a field to T4/T6. At times, these discharges occurred at between 0.5 to 2 Hz for up to 10 seconds. Once midazolam was increased and propofol was turned back on, discharges became less frequent. Ictal Activity: Periodic lateralized discharges, as described above, which occurred in runs up to 10 seconds when sedation was weaned, were concerning for a return of status epilepticus. - Impression Impression: This is an abnormal long-term monitoring session. The background is characterized by a burst-suppression pattern initially but when sedation was weaned, periodic lateralized discharges returned at a frequency of 0.5 to 2 Hz for up to 10 seconds. These findings were concerning for a return of focal status epilepticus. Once sedation was increased, the background returned to a burst-suppression pattern. These findings are suggestive of a severe, diffuse encephalopathy with superimposed continued increased epileptic potential in the right centroparietal region and return of status epilepticus with weaning of sedating medications. The recording was terminated in preparation for the patient's transfer to the [facility] for further care.
--- NOTE | 2017-04-21 04:06 | PN ---
PROGRESS NOTE: DATE OF FOLLOWUP: 04/20/17 LOCATION: The patient is in ICU bed 6. OVERNIGHT EVENTS: No acute overnight events. The patient's propofol was stopped briefly yesterday and discharges did increase somewhat, but she remained on 10 mg of midazolam. There was no clear ictal patterns noted. She clinically has remained unchanged. Overnight, her midazolam was reduced to 4 mg per hour, propofol at 20 mcg/kg per minute, and this morning, the propofol was held for about an hour, but her discharges greatly increased in frequency and became periodic again. Therefore, we have begun discussing with the family the possibility of transfer to either [place] or [place] and they seemed to be preferring [place] at this point. MEDICATIONS: Reviewed and include: 1. Midazolam 4 mg per hour. 2. Propofol at 10 mcg/kg per minute. Just prior to my examination, she was bolused with an additional 4 mg of midazolam given the activity on her EEG. In addition to these drips, she is on: 1. Fosphenytoin 150 mg IV t.i.d. 2. Levetiracetam 1 g q.8 hours. 3. Phenobarbital 100 mg IV q.8 hours. PHYSICAL EXAMINATION: Vital signs: Temperature 99.1 by Beaulieu probe, blood pressure 129/76, heart rate 71, oxygen saturation is 100% on the ventilator. On examination, she is intubated and unconscious. Her heart is in regular rate and rhythm. There are coarse breath sounds bilaterally. She has excoriations and a scab on her left lower extremity. Her extremities are warm. On neurologic examination, she is unresponsive to voice or noxious stimulation. The pupils are equal, round, and reactive from 3 to 2 mm. Her gaze is mid position. There is no blink to threat. There are weak corneals bilaterally. There is no response to nasal tickle. She was exhibiting a slight gag when her propofol was turned off earlier. Her extremities are flaccid with no withdrawal to noxious stimulation. Her toes were mute. LABORATORY DATA: Phenytoin level this morning is 20.8 and phenobarbital level 26.3. Her levetiracetam level on 04/18/17 was 54.7. Otherwise, her white count has risen to 13.3. Her hematocrit is 30 and hemoglobin is 10. Platelet count is normal. INR is 2.47. Her chemistry panel shows magnesium low at 1.7 and calcium of 8.4. Her BUN is 33 and glucose is 148 with a [id number] ratio of 50.8. Her sodium and potassium are normal and her renal function is normal. IMPRESSION AND PLAN: A 66-year-old woman with refractory status epilepticus presumed secondary to a right hemispheric stroke which occurred in June, in the setting of onset of seizures in March. She has been in a medically- induced coma for nearly a week now. She is treated with 3 antiseizure medications in addition to sedating drips, but whenever the midazolam is attempted to be weaned further, she has return of her periodic discharges on the right. Her phenobarb and phenytoin levels are adequate at this point. I think that at this point, a week into this, she should be transferred to a tertiary care center with a Neuro ICU and other therapies to offer. I discussed with the family that some of these other options could include additional medications such as pentobarbital or ketamine, also other therapies such as ketogenic diet and finally could include further evaluations such as examination of the CSF and/or consideration for surgery given that these seizures are presuming to be emanating from her previous area of stroke. At this point, the family is interested in transfer and we discussed that Neurology and in particular epilepsy support is more readily available in [place] and therefore, they would prefer transfer there. I believe, Dr. Mejía is going to contact the transfer center today and we will get to work on this. Thank you for involving me in the care of this patient. [id number]/[facility] [place] [id number] LOR[place]
[2017-04-21] MEDS ORDERED: predniSONE TAB* 10 MG G TUBE SCH (09:00)
== END 2017-04-20 19:45 | disposition short-term general hospital (02) | DRG 100 ==
LOC: ED 12:58 → MEDTELE 15:15 → ICU 17:40 → OBSVTOIN 18:27
PROVIDERS: ADMIT Internal Medicine; ATTEND Internal Medicine Critical Care Medicine
PROC: 5A1935Z Respiratory Ventilation, Less than 24 Consecutive Hours (ICD-10-PCS; 2017-04-13)
PROC: 0BH17EZ Insertion of Endotracheal Airway into Trachea, Via Natural or Artificial Opening (ICD-10-PCS; 2017-04-13)
PROC: 02HV33Z Insertion of Infusion Device into Superior Vena Cava, Percutaneous Approach (ICD-10-PCS; principal; 2017-04-14)
PROC: 4A10X4Z Monitoring of Central Nervous Electrical Activity, External Approach (ICD-10-PCS; 2017-04-20)
DX: G40.201 Localization-related (focal) (partial) symptomatic epilepsy and epileptic syndromes with complex partial seizures, not intractable, with status epilepticus (principal); R57.1 Hypovolemic shock; R40.20 Unspecified coma; J96.01 Acute respiratory failure with hypoxia; D69.6 Thrombocytopenia, unspecified; I95.9 Hypotension, unspecified; I48.91 Unspecified atrial fibrillation; E87.1 Hypo-osmolality and hyponatremia; J98.2 Interstitial emphysema; E27.40 Unspecified adrenocortical insufficiency; E11.9 Type 2 diabetes mellitus without complications; I10 Essential (primary) hypertension; M17.0 Bilateral primary osteoarthritis of knee; M19.042 Primary osteoarthritis, left hand; M19.041 Primary osteoarthritis, right hand; H26.9 Unspecified cataract; Z86.73 Personal history of transient ischemic attack (TIA), and cerebral infarction without residual deficits; Z82.49 Family history of ischemic heart disease and other diseases of the circulatory system; Z80.1 Family history of malignant neoplasm of trachea, bronchus and lung; E78.5 Hyperlipidemia, unspecified; E66.9 Obesity, unspecified; Z68.35 Body mass index [BMI] 35.0-35.9, adult; Z87.440 Personal history of urinary (tract) infections; Z87.891 Personal history of nicotine dependence; Z83.3 Family history of diabetes mellitus; R53.1 Weakness; T42.6X5A Adverse effect of other antiepileptic and sedative-hypnotic drugs, initial encounter; Z79.01 Long term (current) use of anticoagulants; Z79.4 Long term (current) use of insulin
CPT/HCPCS: 36415; 36600; 70450; 71010; 80048; 80053; 80164; 80177; 80184; 80185; 80186; 81003; 81015; 82140; 82533; 82550; 82803; 83010; 83605; 83615; 83735; 83880; 84100; 84145; 84478; 84484; 85025; 85027; 85045; 85379; 85384; 85610; 85730; 86850; 86880; 86900; 86901; 87040; 93306; 94002; 94003; 94660; 94760; 95951; A9270-GY; C1751; J0692; J0696; J1650; J1720; J1940; J2060; J2250; J2560; J2704; J3010; J3370; J3475; J7512; P9045; P9047; Q2009